=== PATIENT | female | born 1945 | race Caucasian/White ===

== ENCOUNTER → 2017-09-20 13:45 | Outpatient (CLI) | payer MEDICARE, OTHER, SELFPAY ==
[2017-09-20 15:41] LABS: Digoxin 1.1 ng/mL (0.8-2.0)
[2017-09-20 15:53] LABS: Free T4, Direct Thyroxine 1.58 ng/dL (0.78-2.19)
[2017-09-20 16:07] LABS: Thyroid Stimulating Hormone 0.45 uIU/mL (0.47-4.68)
== END ==
PROVIDERS: PCP Internal Medicine; Visit Provider Internal Medicine Cardiovascular Disease
DX: I48.0 Paroxysmal atrial fibrillation (principal); I47.1 Supraventricular tachycardia
CPT/HCPCS: 36415; 80162; 84439; 84443

== ENCOUNTER → 2017-11-18 16:36 | Outpatient (CLI) | payer MEDICARE, OTHER, SELFPAY ==
--- NOTE | 2017-11-18 16:40 | DI.RAD.S_ITS ---
PROCEDURE: XR CHEST 2V INDICATIONS: ACUTE BRONCHITIS TECHNIQUE: 2 views of the chest were acquired. COMPARISON: [facility], , CHEST 1 VIEW, 06/13/2017, 19:14. FINDINGS: Surgical changes and devices: There is a cardiac pacemaker. Lungs and pleura: No pleural effusions or pneumothorax. Lungs are clear. Mediastinum: Mediastinal contours are normal. Heart size is normal. Bones and chest wall: No suspicious bony abnormalities. Soft tissues appear unremarkable. IMPRESSION: No acute cardiopulmonary disease. Dictated by: Zuly Adkins M.D. on 11/18/2017 at 17:32 Approved by: Zuly Adkins M.D. on 11/18/2017 at 17:32
== END ==
PROVIDERS: PCP Internal Medicine; Visit Provider Student in an Organized Health Care Education/Training Program
DX: J20.9 Acute bronchitis, unspecified (principal)
CPT/HCPCS: 71046

== ENCOUNTER 2018-02-22 14:34 | Inpatient (IN) | payer MEDICARE, OTHER, SELFPAY ==
[2018-02-08 14:51] VITALS: BMI 21.6
[2018-02-21] VITALS (14 sets, daily range): BP systolic 112–172; BP diastolic 49–68; PULSE 59–70; RESP 10–20; TEMP 35.8–36.9; O2SAT 96–100; BMI 21.6
--- NOTE | 2018-02-21 | PATH_ITS ---
[facility] Accession Number: [id number] . 01 Material submitted: . UTERUS WITH BILATERAL TUBES AND OVARIES . 02 Diagnosis: Uterus with Bilateral Ovaries and Fallopian Tubes: Atrophic endometrium, negative for atypia. Paratubal cyst, left fallopian tube. Right fallopian tube unremarkable. Both ovaries unremarkable. MRV/02/23/2018 . 02 Electronically signed: . Jhonatan Sarmiento MD, Pathologist NPI- [id number] . 01 Gross description: . Received in formalin, labeled uterus with bilateral tubes and ovaries, is a uterus (66 grams, 3.2 cm AP, 7.5 cm SI, 4.3 cm ML) with attached ovaries (right - 2.8 x 1.5 x 1.3 cm; left - 2.3 x 0.8 x 0.7 cm) and fimbriated fallopian tubes (right: length - 4.2 cm, diameter - 0.3 cm; left: length - 5.5 cm, diameter - 0.3 cm). The cervix (1.2 cm AP, 3.2 cm ML) has a vaginal cuff (up to 1.3 cm in depth), transverse os, and patent endocervical canal. The endometrium (average thickness - 0.1 cm) is oakes-pink smooth and flat. The myometrium (thickness - 1.5 cm) is oakes and unremarkable. The serosa is pale oakes smooth and shiny. The ovaries have oakes-yellow dull smooth flat serosa and oakes-yellow solid firm parenchyma with corpus luteum identified. The left fallopian tube contains multiple paratubal cysts (0.1 cm-0.3 cm) containing clear colorless fluid and ramirez-white gelatinous material. The fallopian tubes have oakes smooth and shiny serosa and oakes unremarkable lumens. Section code: (A1) anterior cervix; (A2) posterior cervix; (A3, A4) anterior endomyometrium; (A5, A6) posterior endomyometrium; (A7) right ovary, clearance representative serial sections; (A8) left ovary, clearance representative serial sections; (A9) right fallopian tube, clearance representative serial sections; (A10) right fimbria, bivalved, entirely submitted; (A11) left fallopian tube, clearance representative serial sections; (A12) left fimbria, bivalved, entirely submitted. ([id number]) /[facility] . 02 Pathologist provided ICD-10: N81.4 . 02 CPT . 053134 Performed at: 01 [facility] [address] [id number] MD Donnie Lilly MD Phone: [phone] Performed at: 02 [facility] [address] [place], [place] [id number] MD Jose Trevino MD Phone: [phone]
--- NOTE | 2018-02-21 07:42 | PM.PREOP ---
Pre-operative Note Interval Note Pre-op Check: Yes History & Physical Reviewed by Physician Changes: No
[2018-02-21] MEDS: SCOPOLAMINE 1 PATCH TOP (07:50)
[2018-02-21] MEDS: APREPITANT 40 MG CAPSULE PO (07:52)
[2018-02-21] MEDS: LACTATED RINGERS 1,000 ML 100 ML IV ×4 (07:54→22:11)
[2018-02-21] MEDS: CEFAZOLIN 2 GM/100 ML FROZ.PIGGY IV (08:15)
--- NOTE | 2018-02-21 08:52 | SUR.OPER ---
Lithotomy on padded OR bed. [place] Pad Positioner under torso. Head on pillow, arms padded and tucked at sides. Legs secured in padded yellow fins stirrups.
[2018-02-21] MEDS: ACETAMINOPHEN IV 1,000 MG/100 ML VIAL 400 MG IV (09:52)
[2018-02-21] MEDS: BUPIVACAINE 0.25% W/ EPI VIAL 50 ML INJ (10:39)
[2018-02-21] MEDS: ONDANSETRON 4 MG/2 ML INJ IV ×2 (12:27→22:25)
[2018-02-21] MEDS: INSULIN ASPART 100 UNIT/ML INSULN PEN SUBCUT ×2 (13:56→16:34)
[2018-02-21] MEDS: LISINOPRIL 20 MG TABLET 40 MG PO (13:58)
[2018-02-21] MEDS: TRAMADOL 50 MG TABLET 100 MG PO ×3 (14:37→22:25)
--- NOTE | 2018-02-21 16:02 | PC.NURSE ---
Addendum entered by Veda Mars R.N. 02/21/18 22:44: Med at 2220 w/tramadol and zofran. IV continues as per orders. Stable post op course. Call light w/in reach, bed alarm on for pt safety. Continue w/plan of care. Original Note: Addendum entered by Veda Mars R.N. 02/21/18 18:29: Med w/tramadol 50mg at 1650 w/ good relief. Stable post op course. Original Note: Pt awake, multiple family in room. States discomfort is minimal at this time. four op sites on abdomen CDI. IV LR infusing into the RFA @ 100cc/hr via pump w/o incidence. Hill cath patent clear yellow urine. Call light w/in reach.
[2018-02-21] MEDS: METOCLOPRAMIDE 10 MG/2 ML INJ IV (16:21)
[2018-02-21] MEDS: DOCUSATE 250 MG CAPSULE PO (20:28)
[2018-02-22] VITALS (14 sets, daily range): BP systolic 111–150; BP diastolic 53–69; PULSE 60–88; RESP 14–20; TEMP 36.6–37.1; O2SAT 95–99
--- NOTE | 2018-02-22 | DI.RAD.S_ITS ---
PROCEDURE: XR CHEST 1V INDICATIONS: chest pain, sob. Patient had a laparoscopic hysterectomy performed earlier today on 02/22/18. TECHNIQUE: One view of the chest was acquired. COMPARISON: [facility], , XR CHEST 2V, 11/18/2017, 16:17. FINDINGS: Surgical changes and devices: Left-sided cardiac pacer/defibrillator apparatus is again evident. Lungs and pleura: Aeration of the lungs is within normal limits. No focal consolidation, effusion, or pneumothorax is evident. Mediastinum: Mediastinal contours appear normal. Heart size is normal. Bones and chest wall: No suspicious bony lesions. Overlying soft tissues appear unremarkable. Small amount of pneumoperitoneum is identified underlying the diaphragms. IMPRESSION: 1. No acute cardia pulmonary process is evident. 2. Pneumoperitoneum is not unexpected given the patient's earlier laparoscopic surgery. Note: Findings were discussed with Dr. Whitley at 1623 hours (PST) on 02/22/18. Dictated by: Alvarez Chavira M.D. on 02/22/2018 at 15:18 Approved by: Alvarez Chavira M.D. on 02/22/2018 at 15:25
--- NOTE | 2018-02-22 00:50 | PC.NURSE ---
Addendum entered by Veda Mars R.N. 02/22/18 06:13: Hill cath discontinued w/450cc clear yellow urine. IV changed to HL Resting quietly at this time. Continue as per plan of care. Original Note: Pt resting quietly at this time. IV LR infusing as per orders w/o incidence. Four surgical spot intact. Hill cath patent clear yellow urine. Call light w/in reach, bed alarm on for pt safety.
[2018-02-22] MEDS: ONDANSETRON 4 MG/2 ML INJ IV ×2 (07:06→13:20)
[2018-02-22 07:30] LABS: Add Manual Diff / Slide Review NO; Basophils Percent Auto 0.2 % (0-2); Eosinophils Percent Auto 1.6 % (2-4); Hematocrit 36.5 % (36-46); Hemoglobin 12.7 g/dL (12.0-16.0); Lymphocytes Percent Auto 13.6 % (25-40); Mean Corpuscular HGB Conc 34.9 % (30-36); Mean Corpuscular Hemoglobin 29.3 PG (26-34); Mean Corpuscular Volume 84.2 fL (80-100); Monocytes Percent Auto 7.2 % (3-14); Neutrophils Absolute Auto 12200 /uL (3000-5900); Neutrophils Percent Auto 77.4 % (50-75); Platelet Count 265 X10^3/uL (150-400); Red Blood Cell Count 4.34 X10^6/uL (4.0-5.2); Red Cell Distribution Width 12.4 % (11.6-14.8); White Blood Cell Count 15.8 X10^3/uL (4.5-11.0)
[2018-02-22] MEDS: METOCLOPRAMIDE 10 MG/2 ML INJ IV ×2 (07:53→18:59)
[2018-02-22] MEDS: CYCLOBENZAPRINE 5 MG TABLET PO (07:53)
--- NOTE | 2018-02-22 08:27 | PM.PN.1 ---
Subjective Date Patient Seen: 02/22/18 Time Patient Seen: 08:27 Interval history: Patient is postoperative day 1. Laparoscopic-assisted vaginal hysterectomy with anterior-posterior repair. Patient states she does not feel well. She has discomfort between her shoulder blades but is improved now that she has switched positions. She states she does not do well with pain medicine and feels that the medication she took is making her feel nauseated. She does not have significant pain at this time. Exam Vital Signs (past 8 hours): - 02/22/18 01:39 02/22/18 06:10 Temperature 98.0 F 98.5 F Pulse Rate 60 69 Respiratory Rate 19 20 Blood Pressure 131/60 130/60 Pulse Oximetry 96 95 Oxygen Delivery Method Room Air Oxygen Flow Rate 3 Narrative Exam Narrative: Patient's abdomen is soft with minimal distention. Her incisions are clean, dry, intact. Her vaginal packing was removed. There is no active bleeding. Her extremities are without edema and nontender. Objective Labs Result Diagrams: 02/22/18 06:35 Labs: Laboratory Results - last 24 hr 02/22/18 06:35 WBC 15.8 H RBC 4.34 Hgb 12.7 Hct 36.5 MCV 84.2 MCH 29.3 MCHC 34.9 RDW 12.4 Plt Count 265 Neut % (Auto) 77.4 H Lymph % (Auto) 13.6 L [place] % (Auto) 7.2 Eos % (Auto) 1.6 L Baso % (Auto) 0.2 Neut # (Auto) 81239 H Assessment & Plan (1) Pelvic floor relaxation: Problem details: Status post laparoscopic-assisted vaginal hysterectomy with anterior-posterior repair Current visit: No Status: None Plan: Assessment/Plan Narrative: Postoperative day 1 with patient complaining of not feeling well but may be due to the pain medicine. The patient's Hill and vaginal packing removed and will make sure she can urinate well. The will make sure the patient is feeling better for possible discharge later today. Quality VTE Deep Vein Thrombosis/Pulmonary Embolism Present on Admission: No
[2018-02-22] MEDS: ACETAMINOPHEN 325 MG TABLET 650 MG PO (08:38)
[2018-02-22] MEDS: LISINOPRIL 20 MG TABLET 40 MG PO (11:03)
[2018-02-22] MEDS: dilTIAZem CD 120 MG CAP PO (11:03)
[2018-02-22] MEDS: LEVOTHYROXINE 100 MCG TABLET PO (11:04)
[2018-02-22] MEDS: DOCUSATE 250 MG CAPSULE PO ×2 (11:04→20:55)
--- NOTE | 2018-02-22 12:01 | RT ---
ekg done for chest pain at 1118, results given to Nurse Jhoana Rincon.
[2018-02-22 13:01] LABS: Add Manual Diff / Slide Review NO; Basophils Percent Auto 0.1 % (0-2); Eosinophils Percent Auto 0.2 % (2-4); Hematocrit 36.3 % (36-46); Hemoglobin 12.9 g/dL (12.0-16.0); Mean Corpuscular HGB Conc 35.6 % (30-36); Mean Corpuscular Hemoglobin 29.6 PG (26-34); Mean Corpuscular Volume 83.1 fL (80-100); Neutrophils Absolute Auto 17000 /uL (3000-5900); Neutrophils Percent Auto 85.7 % (50-75); Platelet Count 285 X10^3/uL (150-400); Red Blood Cell Count 4.37 X10^6/uL (4.0-5.2); Red Cell Distribution Width 12.5 % (11.6-14.8); White Blood Cell Count 19.8 X10^3/uL (4.5-11.0)
[2018-02-22 13:16] LABS: Alanine Aminotransferase 29 IU/L (9-52); Albumin 3.3 g/dL (3.5-5.0); Albumin Globulin Ratio 1.4 (1.0-2.8); Alkaline Phosphatase 69 U/L (38-126); Aspartate Aminotransferase 21 IU/L (14-36); BUN Creatinine Ratio 12.5 (6-22); Bilirubin Total 0.8 mg/dL (0.2-1.3); Blood Urea Nitrogen 5 mg/dL (7-17); Calcium 7.5 mg/dL (8.4-10.2); Carbon Dioxide 27 mmol/L (22-32); Chloride 80 mmol/L (98-107); Creatine Kinase 33 U/L (30-135); Estimated Glomerular Filt Rate > 60.0 mL/min (>60); Globulin 2.4 g/dL (1.7-4.1); Glucose 171 mg/dL (80-110); HEMOLYSIS < 15 (0-50); Magnesium 1.3 mg/dL (1.6-2.3); Potassium 3.4 mmol/L (3.4-5.1); Total Protein 5.7 g/dL (6.3-8.2)
[2018-02-22 13:30] LABS: Troponin I < 0.012 ng/mL (0.01-0.034)
[2018-02-22 13:32] LABS: Sodium 115 mmol/L (137-145)
[2018-02-22] MEDS: SODIUM CHLORIDE 0.9% 1,000 ML 150 ML IV ×2 (14:20→20:51)
--- NOTE | 2018-02-22 14:36 | CM.DANOTE ---
DCP/Assessment: Reviewed chart. Patient is a 72yr old female admitted [facility] for vaginal hysterectomy performed on 02-21-18. PCP is Dr. Sheldon. Primary payor is 1)Medicare 2)[employer] [place]. Patient changed to inpatient status today 02-22-18 due to chest pain and low sodium level. Cardiac w/u in progress. Met with patient and family at bedside. Patient sleep at time of visit. Daughter/Sil reports patient I at baseline. At this time there are no anticipated d/c planning needs. Patient resides with family in [place] and has family support. CM team to continue to follow if needs were to arise. P: Home when medically stable. LILIANA Hewitt Discharge Planning/Care Management CM Discharge Assessment Start: 02/22/18 14:31 Freq: Status: Active Protocol: Document 02/22/18 14:31 KJS (Rec: 02/22/18 14:36 KJS [id number]) Discharge Planning Assessment Assigned [employer]er LILIANA Hewitt Contact Information Joe Alford (spouse) [phone] Advance Directives? Yes History Provided By Patient Family Member Significant Other Has Patient been admitted in last 30 No days? Prior Living Arrangements House Household Members spouse children Type of transporation used prior to Drives own vehicle admit Independent with ADL's Yes Is patient alert and oriented? Yes Caregiver for Another No Barriers to Discharge No Discharge Plan Home Transportation Arrangement Family to provide transportation home. Referrals Initiated None needed Whiteboard Updated in Patient Room with Yes name and ext. # of [employer] Review Status In Process Please Provide Date Initial DC 02/22/18 Assessment Was Performed Next Review Type Continued Stay Review Pre-Anesthesia Assessment Start: 02/08/18 08:36 Freq: Status: Complete Protocol: Document 02/08/18 14:51 CAB (Rec: 02/08/18 15:32 CAB [id number]) Pre-Anesthesia Assessment Patient Information Reviewed Via Chart Review Primary Care Provider Jaspal Sheldon Seen Specialist in Last 12 Months Yes Specialist Seen Forensic Locksmith Comment PCP note 11/18/17 to med records to be scanned to chart Primary Language Pakistani Inside Upholsterer Required No Height 162.56 cm Weight 57.153 kg Body Mass Index (BMI) 21.6 Anesthesia Review Requested No Body Shop Supervisor No Smoking Status Never smoker Does patient have KIDD/SOB Yes Hx SOB Yes Hx Pacemaker/ICD Yes Pacemaker Rep Required? No: Pacer form to [facility] recs and surgery folder Genitourinary Symptoms Burning Dribbling Bladder Pattern Frequency Urinary Catheter Present No Hx Urinary Self Catheterization No Diabetes Yes Patient No Lactating No Comment Caring for her
--- NOTE | 2018-02-22 15:29 | PC.NURSE ---
: PATIENT HADN'T VOIDED SINCE MARX DC'D THIS AM. BLADDER SCANNED W/ 801 CC'S NOTED IN BLADDER. 1P ASSIST TO TRANSF TO COMMODE W/ WALKER. PATIENT SLEEPY. VOIDED LIGHT PINK URINE ONLY 50CC'S. ASSISTED BACK TO BED. PRIMARY NURSE MARELY Davis NOTIFIED. MARX PLACED, SHE WILL SPEAK W/ DR. SANTORO. RETURN OF APPROX 500-600 CC'S URINE. IV: IV RED AND SORE. DC'D INTACT. NEW IV STARTED RADIAL UPPER WRIST/LOWER FOREARM. FLUSHES EASILY. IVF NS STARTED PER NEW ORDERS DIRECTED BY MARELY Davis
--- NOTE | 2018-02-22 15:30 | PC.NURSE ---
Post-op: Not feeling well today. Weak, hard to stay awake, nausea. Given reglan and flexaril this am and pt thought they helped a little but then nausea returned. Reporting c/p 2, mid sternal. EKG obtained. See new orders. Did get a ntg sl and c/p completely resolved. is on tele. Pt tolerated ngt w/sl decreased in bp, and dizziness but otherwise no problems. Unable to void and myrick was replaced. Dtr noticed pt had lip swelling and this was thought to be caused by the scope patch and scope patch was removed. Labs completed and NA 115 and critical value was called to MD, see new orders for this. IVF were hung and have been running. Dr. Raya was called x3 today for nausea, c/p, and inability to void. Dr. Foley x2, c/p, and lab values. this afternoon pt reports she is feeling better, is c/p free and nausea has resolved. Cont w/poc.
--- NOTE | 2018-02-22 15:35 | PM.PN.1 ---
Subjective Date Patient Seen: 02/22/18 Time Patient Seen: 15:35 Interval history: This is a consult note. I have consulted by Dr. Raya associate for patient's chest pain. 72-year-old female with past medical history atrial fibrillation with pacemaker placement for bradycardia episodes, B12 deficiency, diabetes mellitus, carotid artery stenosis, history of chest pain, iron deficiency anemia, Crohn's disease, hypertension, hypothyroidism, bronchitis was admitted to the hospital for laparoscopic-assisted vaginal hysterectomy, which she underwent today. The procedure was unsuccessful, however patient did complain of discomfort between her shoulder blades that went away when she switched positioning. Nevertheless, when patient went up to floors and was recovering, patient started complaining of pressure-like chest pain in the middle of her chest. When I evaluated the patient, she told me that pain was pressure-like sensation, 6/10 severity, nonradiating, substernal, not alleviated or exacerbated by any factors. Patient denied any dizziness or lightheadedness at that time, denied any loss of consciousness, denied any shortness of breath. Patient denied any nausea or vomiting, diarrhea or constipation, abdominal pain. Patient was evaluated. Her vital signs were completely stable. She was saturating well on room air, 96%. EKG was performed which showed questionable T-wave inversions in inferior leads as well as possible T-wave abnormalities in lateral leads. Patient was given sublingual nitroglycerin which improved her pain significantly. Troponins were drawn at that time which came back negative. Nevertheless, the rest of the lab work came back with WBC of 19.8, hemoglobin 12.9 hematocrit 36, platelets 285. Sodium came back at 1:15 a.m., potassium 3.4, chloride 80, bicarb 27, BUN 5, creatinine 0.4, and blood glucose of 171. Patient was started on 0.9 NSS at 150 cc/hour. BMP, troponins, and EKG will be repeated at 1900. PMH: As above SH: Denies any smoking, alchol, or drug use All: PCN FH: Father of [place] in his 60s Mother had Rheumatic heart Dz Exam Vital Signs (past 8 hours): - 02/22/18 08:00 02/22/18 14:22 Temperature 97.8 F 98.0 F Pulse Rate 61 83 Respiratory Rate 19 18 Blood Pressure 143/58 H 146/60 H Pulse Oximetry 97 98 Oxygen Delivery Method Room Air Oxygen Flow Rate 3 Narrative Exam Narrative: General: No acute distress, A/O x3 HEENT: PERRLA bilaterally Neck: Supple, no LAD, no JVD CV: Regular rate rhythm, no murmurs or gallops Respiratory: Positive breath sounds, clear to auscultation bilaterally. No crackles or rhonchi GI: Laparoscopic incisions present throughout abdomen, Clean Musculoskeletal: Moves all extremities Skin: No pallor, lesions or bruising Neuro: No focal deficits Psych: Mood is appropriate, able to make all the decision Objective Labs Result Diagrams: 02/22/18 12:40 02/22/18 12:40 Labs: Laboratory Results - last 24 hr 02/22/18 02/22/18 02/22/18 06:35 12:40 12:40 WBC 15.8 H 19.8 H RBC 4.34 4.37 Hgb 12.7 12.9 Hct 36.5 36.3 MCV 84.2 83.1 MCH 29.3 29.6 MCHC 34.9 35.6 RDW 12.4 12.5 Plt Count 265 285 Neut % (Auto) 77.4 H 85.7 H Lymph % (Auto) 13.6 L 7.0 L [place] % (Auto) 7.2 7.0 Eos % (Auto) 1.6 L 0.2 L Baso % (Auto) 0.2 0.1 Neut # (Auto) 47492 H 29105 H Sodium 115 L* Potassium 3.4 Chloride 80 L Carbon Dioxide 27 BUN 5 L Creatinine 0.40 L Estimated GFR > 60.0 BUN/Creatinine Ratio 12.5 Glucose 171 H Calcium 7.5 L Magnesium 1.3 L Total Bilirubin 0.8 AST 21 ALT 29 Alkaline Phosphatase 69 Total Creatine Kinase 33 CK-MB (CK-2) TNP CK-MB (CK-2) Rel Index TNP Troponin I < 0.012 Total Protein 5.7 L Albumin 3.3 L Globulin 2.4 Albumin/Globulin Ratio 1.4 Assessment & Plan Plan: Assessment/Plan Narrative: 1. Chest pain -possibly due to unstable versus stable angina -EKG was questionable for T-wave inversions in the inferior leads as well as T-wave abnormalities in lateral leads -troponins were negative x1 -Wells criteria for PE is 0, low risk -continue to monitor troponin and EKG q.6 hours x3 -will start patient on aspirin 81 mg daily, but will be cautious since patient has history of GI bleed -nitroglycerin as needed for pain 2. Hyponatremia -possibly from dehydration -sodium 115, chloride 80 -will start patient on D5 NS at 150 cc an hour -will repeat BMP of 1900 and adjust fluids accordingly 3. AFib -status post ablation and pacemaker placement -patient is on digoxin, and diltiazem -continue medication 4. Diabetes mellitus type 2 -blood glucose is stable -continue insulin sliding scale at this time and may resume home Lantus/lispro on discharge or blood glucose started to increase 5. Hypothyroidism -continue levothyroxine 6. Hypertension -continue diltiazem, hydrochlorothiazide, and lisinopril 7. History of CAD, although patient denies any stenting in the past -continue simvastatin, aspirin, lisinopril 60 min was spent evaluating and providing care for this patient Quality VTE Deep Vein Thrombosis/Pulmonary Embolism Present on Admission: No
--- NOTE | 2018-02-22 15:53 | P.PN_ITS ---
Subjective Date Patient Seen: 02/22/18 Time Patient Seen: 15:35 Interval history: This is a consult note. I have consulted by Dr. Raya associate for patient's chest pain. 72-year-old female with past medical history atrial fibrillation with pacemaker placement for bradycardia episodes, B12 deficiency, diabetes mellitus, carotid artery stenosis, history of chest pain, iron deficiency anemia, Crohn's disease , hypertension, hypothyroidism, bronchitis was admitted to the hospital for laparoscopic-assisted vaginal hysterectomy, which she underwent today. The procedure was unsuccessful, however patient did complain of discomfort between her shoulder blades that went away when she switched positioning. Nevertheless , when patient went up to floors and was recovering, patient started complaining of pressure-like chest pain in the middle of her chest. When I evaluated the patient, she told me that pain was pressure-like sensation, 6/10 severity, nonradiating, substernal, not alleviated or exacerbated by any factors. Patient denied any dizziness or lightheadedness at that time, denied any loss of consciousness, denied any shortness of breath. Patient denied any nausea or vomiting, diarrhea or constipation, abdominal pain. Patient was evaluated. Her vital signs were completely stable. She was saturating well on room air, 96%. EKG was performed which showed questionable T -wave inversions in inferior leads as well as possible T-wave abnormalities in lateral leads. Patient was given sublingual nitroglycerin which improved her pain significantly. Troponins were drawn at that time which came back negative. Nevertheless, the rest of the lab work came back with WBC of 19.8, hemoglobin 12.9 hematocrit 36, platelets 285. Sodium came back at 1:15 a.m., potassium 3.4, chloride 80, bicarb 27, BUN 5, creatinine 0.4, and blood glucose of 171. Patient was started on 0.9 NSS at 150 cc/hour. BMP, troponins, and EKG will be repeated at 1900. PMH: As above SH: Denies any smoking, alchol, or drug use All: PCN FH: Father of [place] in his 60s Mother had Rheumatic heart Dz Exam Vital Signs (past 8 hours): - 02/22/18 08:00 02/22/18 14:22 Temperature 97.8 F 98.0 F Pulse Rate 61 83 Respiratory Rate 19 18 Blood Pressure 143/58 H 146/60 H Pulse Oximetry 97 98 Oxygen Delivery Method Room Air Oxygen Flow Rate 3 Narrative Exam Narrative: General: No acute distress, A/O x3 HEENT: PERRLA bilaterally Neck: Supple, no LAD, no JVD CV: Regular rate rhythm, no murmurs or gallops Respiratory: Positive breath sounds, clear to auscultation bilaterally. No crackles or rhonchi GI: Laparoscopic incisions present throughout abdomen, Clean Musculoskeletal: Moves all extremities Skin: No pallor, lesions or bruising Neuro: No focal deficits Psych: Mood is appropriate, able to make all the decision Objective Labs Result Diagrams: 02/22/18 12:40 02/22/18 12:40 Labs: Laboratory Results - last 24 hr 02/22/18 02/22/18 02/22/18 06:35 12:40 12:40 WBC 15.8 H 19.8 H RBC 4.34 4.37 Hgb 12.7 12.9 Hct 36.5 36.3 MCV 84.2 83.1 MCH 29.3 29.6 MCHC 34.9 35.6 RDW 12.4 12.5 Plt Count 265 285 Neut % (Auto) 77.4 H 85.7 H Lymph % (Auto) 13.6 L 7.0 L [place] % (Auto) 7.2 7.0 Eos % (Auto) 1.6 L 0.2 L Baso % (Auto) 0.2 0.1 Neut # (Auto) 17806 H 94980 H Sodium 115 L* Potassium 3.4 Chloride 80 L Carbon Dioxide 27 BUN 5 L Creatinine 0.40 L Estimated GFR > 60.0 BUN/Creatinine Ratio 12.5 Glucose 171 H Calcium 7.5 L Magnesium 1.3 L Total Bilirubin 0.8 AST 21 ALT 29 Alkaline Phosphatase 69 Total Creatine Kinase 33 CK-MB (CK-2) TNP CK-MB (CK-2) Rel Index TNP Troponin I < 0.012 Total Protein 5.7 L Albumin 3.3 L Globulin 2.4 Albumin/Globulin Ratio 1.4 Assessment & Plan Plan: Assessment/Plan Narrative: 1. Chest pain -possibly due to unstable versus stable angina -EKG was questionable for T-wave inversions in the inferior leads as well as T- wave abnormalities in lateral leads -troponins were negative x1 -Wells criteria for PE is 0, low risk -continue to monitor troponin and EKG q.6 hours x3 -will start patient on aspirin 81 mg daily, but will be cautious since patient has history of GI bleed -nitroglycerin as needed for pain 2. Hyponatremia -possibly from dehydration -sodium 115, chloride 80 -will start patient on D5 NS at 150 cc an hour -will repeat BMP of 1900 and adjust fluids accordingly 3. AFib -status post ablation and pacemaker placement -patient is on digoxin, and diltiazem -continue medication 4. Diabetes mellitus type 2 -blood glucose is stable -continue insulin sliding scale at this time and may resume home Lantus/lispro on discharge or blood glucose started to increase 5. Hypothyroidism -continue levothyroxine 6. Hypertension -continue diltiazem, hydrochlorothiazide, and lisinopril 7. History of CAD, although patient denies any stenting in the past -continue simvastatin, aspirin, lisinopril 60 min was spent evaluating and providing care for this patient Quality VTE Deep Vein Thrombosis/Pulmonary Embolism Present on Admission: No
--- NOTE | 2018-02-22 17:02 | PM.PN.1 ---
Subjective Date Patient Seen: 02/22/18 Time Patient Seen: 17:04 Interval history: Postoperative day # 1 Laparoscopic-assisted vaginal hysterectomy with anterior and posterior repair. Patient continued to not feel well after her evaluation earlier this morning. Patient's daughter requested evaluation by hospitalist which was performed. Patient is now feeling much better. It is probable the patient just had a reaction to the scopolamine patch which was removed and to the tramadol. Patient is getting IV fluids, her Hill catheter replaced, and follow-up monitoring to rule out cardiac event. Exam Vital Signs (past 8 hours): - 02/22/18 14:22 Temperature 98.0 F Pulse Rate 83 Respiratory Rate 18 Blood Pressure 146/60 H Pulse Oximetry 98 Oxygen Delivery Method Room Air Oxygen Flow Rate 3 Narrative Exam Narrative: Patient's abdomen is soft, nontender. Dressings are dry. Mild vaginal bleeding. Extremities without edema and nontender Objective Labs Result Diagrams: 02/22/18 12:40 02/22/18 12:40 Labs: Laboratory Results - last 24 hr 02/22/18 02/22/18 02/22/18 06:35 12:40 12:40 WBC 15.8 H 19.8 H RBC 4.34 4.37 Hgb 12.7 12.9 Hct 36.5 36.3 MCV 84.2 83.1 MCH 29.3 29.6 MCHC 34.9 35.6 RDW 12.4 12.5 Plt Count 265 285 Neut % (Auto) 77.4 H 85.7 H Lymph % (Auto) 13.[address] [place] % (Auto) 7.2 7.0 Eos % (Auto) 1.6 L 0.2 L Baso % (Auto) 0.2 0.1 Neut # (Auto) 42455 H 25197 H Sodium 115 L* Potassium 3.4 Chloride 80 L Carbon Dioxide 27 BUN 5 L Creatinine 0.40 L Estimated GFR > 60.0 BUN/Creatinine Ratio 12.5 Glucose 171 H Calcium 7.5 L Magnesium 1.3 L Total Bilirubin 0.8 AST 21 ALT 29 Alkaline Phosphatase 69 Total Creatine Kinase 33 CK-MB (CK-2) TNP CK-MB (CK-2) Rel Index TNP Troponin I < 0.012 Total Protein 5.7 L Albumin 3.3 L Globulin 2.4 Albumin/Globulin Ratio 1.4 Assessment & Plan (1) Pelvic floor relaxation: Problem details: Status post laparoscopic-assisted vaginal hysterectomy with anterior-posterior repair Current visit: No Status: None (2) TYPE 1 DIABETES MELLITUS WITH HYPOGLYCEMIA WITHOUT COMA: Current visit: No Status: Acute (3) Atypical chest pain: Current visit: No Status: Acute Plan: Assessment/Plan Narrative: 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 Assuming that she continues to improve and her cardiac workup is negative likely home in the morning. She will need to have confirmation of urination post Hill catheter removal. Quality VTE Deep Vein Thrombosis/Pulmonary Embolism Present on Admission: No
--- NOTE | 2018-02-22 17:11 | P.PN_ITS ---
Subjective Date Patient Seen: 02/22/18 Time Patient Seen: 17:04 Interval history: Postoperative day # 1 Laparoscopic-assisted vaginal hysterectomy with anterior and posterior repair. Patient continued to not feel well after her evaluation earlier this morning. Patient's daughter requested evaluation by hospitalist which was performed. Patient is now feeling much better. It is probable the patient just had a reaction to the scopolamine patch which was removed and to the tramadol. Patient is getting IV fluids, her Hill catheter replaced, and follow-up monitoring to rule out cardiac event. Exam Vital Signs (past 8 hours): - 02/22/18 14:22 Temperature 98.0 F Pulse Rate 83 Respiratory Rate 18 Blood Pressure 146/60 H Pulse Oximetry 98 Oxygen Delivery Method Room Air Oxygen Flow Rate 3 Narrative Exam Narrative: Patient's abdomen is soft, nontender. Dressings are dry. Mild vaginal bleeding. Extremities without edema and nontender Objective Labs Result Diagrams: 02/22/18 12:40 02/22/18 12:40 Labs: Laboratory Results - last 24 hr 02/22/18 02/22/18 02/22/18 06:35 12:40 12:40 WBC 15.8 H 19.8 H RBC 4.34 4.37 Hgb 12.7 12.9 Hct 36.5 36.3 MCV 84.2 83.1 MCH 29.3 29.6 MCHC 34.9 35.6 RDW 12.4 12.5 Plt Count 265 285 Neut % (Auto) 77.4 H 85.7 H Lymph % (Auto) 13.6 L 7.0 L [place] % (Auto) 7.2 7.0 Eos % (Auto) 1.6 L 0.2 L Baso % (Auto) 0.2 0.1 Neut # (Auto) 78539 H 18157 H Sodium 115 L* Potassium 3.4 Chloride 80 L Carbon Dioxide 27 BUN 5 L Creatinine 0.40 L Estimated GFR > 60.0 BUN/Creatinine Ratio 12.5 Glucose 171 H Calcium 7.5 L Magnesium 1.3 L Total Bilirubin 0.8 AST 21 ALT 29 Alkaline Phosphatase 69 Total Creatine Kinase 33 CK-MB (CK-2) TNP CK-MB (CK-2) Rel Index TNP Troponin I < 0.012 Total Protein 5.7 L Albumin 3.3 L Globulin 2.4 Albumin/Globulin Ratio 1.4 Assessment & Plan (1) Pelvic floor relaxation: Problem details: Status post laparoscopic-assisted vaginal hysterectomy with anterior-posterior repair Current visit: No Status: None (2) TYPE 1 DIABETES MELLITUS WITH HYPOGLYCEMIA WITHOUT COMA: Current visit: No Status: Acute (3) Atypical chest pain: Current visit: No Status: Acute Plan: Assessment/Plan Narrative: 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 Assuming that she continues to improve and her cardiac workup is negative likely home in the morning. She will need to have confirmation of urination post Hill catheter removal. Quality VTE Deep Vein Thrombosis/Pulmonary Embolism Present on Admission: No
[2018-02-22] MEDS: DIGOXIN 0.125 MG TABLET PO (17:43)
[2018-02-22] MEDS: ASPIRIN EC 81 MG TABLET PO (17:44)
[2018-02-22] MEDS: INSULIN ASPART 100 UNIT/ML INSULN PEN SUBCUT (17:45)
[2018-02-22] MEDS: NITROGLYCERIN 0.4 MG SL TAB SL ×3 (18:24→18:45)
[2018-02-22] MEDS: MORPHINE 2 MG/ML INJ IV (19:03)
[2018-02-22 19:29] LABS: BUN Creatinine Ratio 12.5 (6-22); Blood Urea Nitrogen 5 mg/dL (7-17); Calcium 7.4 mg/dL (8.4-10.2); Carbon Dioxide 25 mmol/L (22-32); Chloride 84 mmol/L (98-107); Estimated Glomerular Filt Rate > 60.0 mL/min (>60); Glucose 180 mg/dL (80-110); HEMOLYSIS < 15 (0-50); Potassium 3.5 mmol/L (3.4-5.1)
[2018-02-22 19:42] LABS: Troponin I < 0.012 ng/mL (0.01-0.034)
[2018-02-22 19:43] LABS: Sodium 115 mmol/L (137-145)
[2018-02-22] MEDS: MAGNESIUM SULFATE 2 GM/50 ML PIGGYBACK IV (20:40)
[2018-02-22] MEDS: POTASSIUM CHLORIDE 20 MEQ/15 ML UDC 40 MEQ PO (20:48)
[2018-02-22] MEDS: SIMVASTATIN 10 MG TABLET PO (20:57)
--- NOTE | 2018-02-22 21:16 | PM.EVENT ---
Date Patient Seen: 02/22/18 Time Patient Seen: 20:00 Received a call from the patient's nurse. Nurse is reporting lab results from 1900 our lab draw, specifically sodium. NA 115 Additional information provided by the nurse. Having chest pain earlier in the day, currently chest pain-free. There is some difficulty describing patient's mentation, however noted not to be patient's baseline. Electrolytes have not been repleted. Vital signs are stable. IV fluids NS at 150 ml/hr since 3 pm, respectively. Urine output 1150 ml since 3 pm. Patient is nauseated. Has not been having vomiting or diarrhea. Patient is seen at bedside (multiple family members also present at bedside). Patient easily awakens to verbal stimuli. Alert and oriented x3. Able to describe reason for hospital admission. Aware of her surroundings. Reports generalized weakness. Denies chest pain and palpitations. Patient's chart reviewed. Most recent and historical labs reviewed. Patient's medications reviewed Baseline sodium per historical trends in the 130-[address] patient on seizure precautions Neuro checks q.2 hours Replete potassium (K 3.5) with 40 mEq KCL PO x1 Replete magnesium (Mg 1.3) with 2 gm Mag Sulfate over 1 hr Continue NS at 150 ml/hr Discontinue HCTZ and ACEi, in the setting of hyponatremia Discontinue Ambien re: at risk for lethargy, stupor the setting of hyponatremia Serial Na draws Q2H starting at 2200 Will need to be cautious in correcting sodium, not to exceed 8 mEq in 24 hr Pending sodium level at 2200, we will consider transferring patient to the ICU and initiating 3% sodium chloride infusion; however, patient will need a PICC line placed prior to initiating the aforementioned medication. Checked on patient at 21:40, no change for prior assessment Discussed plan of care with patient's nurse and pending sodium level at 2200 hour Also asked the nurse to add additional orders to 2200: serum and urine osmolality, TSH level, and random cortisol
--- NOTE | 2018-02-22 22:08 | PC.NURSE ---
Addendum entered by Katya Ricks R.N. 02/22/18 22:53: MD SANTORO updated on pt status/new orders from hospitalist Original Note: 1600: Pt awake, drowsy and oriented. Denies pain. Denies nausea. RA 96%. Abd soft, non distended, BT/Flatus+. Dressing to lower abdomen c/d/i. No drainage on arun pad. IV infusing w/o complications. Hill draining well, urine clr/yellow. Family members at bedside. SCDs on. 1819: Notified by family member that pt was having chest pressure. Pt reported pain/pressure 4/10. RT called for EKG and lab called for draw. 1824: First Nitro given. Vitals stable. 1830: No relief after first dose. Second dose given 1836, vitals stable 1840: No relief after second dose. Third dose given 1844, vitals stable 1850: MD GALLAGHER notified of pt status, EKG and lab drawn (no results yet). Orders for IV morphine received/given. Pt reported that pain/pressure slowly resolved after morphine given. New correctional supply supervisor hospitalist RIKKI notified of critical lab value Sodium and negative cardiac/troponin. New orders received, mag quentin, po potassium, seizure precautions, additional labs. Pt vitals remain stable. Family at bedside. 0: Pt reports feeling much better family agrees that pt seems to be feeling good. Neuro checks Q2H, alert/oriented, speech clear, strength equal. 2245: Sodium 117. Pt and family updated on plan, Q2H sodium checks/also additional check of mag/potassium at 0000.
[2018-02-22 22:24] LABS: Sodium 117 mmol/L (137-145)
[2018-02-22 23:10] LABS: Cortisol Random 13.3 ug/dL
[2018-02-22 23:11] LABS: Thyroid Stimulating Hormone 2.45 uIU/mL (0.47-4.68)
[2018-02-23] VITALS: BP 133/59; PULSE 66; RESP 14; TEMP 36.5; O2SAT 97
[2018-02-23 00:29] LABS: HEMOLYSIS < 15 (0-50); Magnesium 2.3 mg/dL (1.6-2.3); Potassium 4.2 mmol/L (3.4-5.1); Sodium 122 mmol/L (137-145)
--- NOTE | 2018-02-23 00:47 | PC.NURSE ---
Addendum entered by Kaitlyn Parks R.N. 02/23/18 05:58: 0555 MD had ordered D5 to infuse at 100ml/hr, clarified with MD regarding pt's DM status. MD has ordered D5 to infuse at a decreased rate of 50ml/hr. MAR updated. IVF infusing per updated order. Pt denies pain and nausea. A/O x3. 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 A/O x3. RA sats 97% with clear lungs. Denies pain and nausea. Lap sites to lower abdomen/pubic area CDI. Labs drawn and NA has increased to 122. Seizure pads in place. IVF infusing. Family at the bedside and rooming in with pt. Bed alarm on for safety and call light within reach.
[2018-02-23] MEDS: SODIUM CHLORIDE 0.9% 1,000 ML 50 ML IV (01:21)
[2018-02-23 02:22] LABS: Sodium 126 mmol/L (137-145)
[2018-02-23] MEDS: ACETAMINOPHEN 325 MG TABLET 650 MG PO ×3 (02:36→11:28)
[2018-02-23 04:15] LABS: Sodium 127 mmol/L (137-145)
[2018-02-23] MEDS: DEXTROSE 5% WATER 1,000 ML 100 ML IV (05:49)
[2018-02-23 06:00] VITALS: BP 130/60; PULSE 66; RESP 16; TEMP 36.9; O2SAT 97
[2018-02-23 07:24] LABS: Add Manual Diff / Slide Review NO; Basophils Percent Auto 0.2 % (0-2); Eosinophils Percent Auto 1.5 % (2-4); Hemoglobin 13.1 g/dL (12.0-16.0); Lymphocytes Percent Auto 13.7 % (25-40); Mean Corpuscular HGB Conc 35.3 % (30-36); Mean Corpuscular Hemoglobin 29.6 PG (26-34); Monocytes Percent Auto 11.5 % (3-14); Neutrophils Absolute Auto 7800 /uL (3000-5900); Neutrophils Percent Auto 73.1 % (50-75); Platelet Count 245 X10^3/uL (150-400); Red Blood Cell Count 4.41 X10^6/uL (4.0-5.2); Red Cell Distribution Width 12.4 % (11.6-14.8); White Blood Cell Count 10.7 X10^3/uL (4.5-11.0)
[2018-02-23 07:30] VITALS: BP 140/58; PULSE 65; RESP 16; TEMP 36.6; O2SAT 98
--- NOTE | 2018-02-23 07:35 | PM.PNPO.1 ---
Subjective Date Patient Seen: 02/23/18 Time Patient Seen: 07:05 Interval history: Patient is day 2 status post laparoscopic assisted vaginal hysterectomy with anterior-posterior repair. Patient is feeling much better this morning. She is taking Tylenol with good relief of her pain. Her mentation is clearer. Exam Vital Signs (past 8 hours): - 02/23/18 00:00 02/23/18 06:00 Temperature 97.7 F 98.5 F Pulse Rate 66 66 Respiratory Rate 14 16 Blood Pressure 133/59 L 130/60 Pulse Oximetry 97 97 Oxygen Delivery Method Room Air Oxygen Flow Rate 0 Narrative Exam Narrative: Patient's abdomen is soft, nontender. Dressings are clean, dry, intact. Minimal vaginal bleeding. Extremities without edema and nontender Objective Labs Result Diagrams: 02/23/18 06:20 02/23/18 03:58 Labs: Laboratory Results - last 24 hr 02/22/18 02/22/18 02/22/18 12:40 12:40 18:58 WBC 19.8 H RBC 4.37 Hgb 12.9 Hct 36.3 MCV 83.1 MCH 29.6 MCHC 35.6 RDW 12.5 Plt Count 285 Neut % (Auto) 85.7 H Lymph % (Auto) 7.0 L [place] % (Auto) 7.0 Eos % (Auto) 0.2 L Baso % (Auto) 0.1 Neut # (Auto) 65774 H Sodium 115 L* 115 L* Potassium 3.4 3.5 Chloride 80 L 84 L Carbon Dioxide 27 25 BUN 5 L 5 L Creatinine 0.40 L 0.40 L Estimated GFR > 60.0 > 60.0 BUN/Creatinine Ratio 12.5 12.5 Glucose 171 H 180 H Calcium 7.5 L 7.4 L Magnesium 1.3 L Total Bilirubin 0.8 AST 21 ALT 29 Alkaline Phosphatase 69 Total Creatine Kinase 33 CK-MB (CK-2) TNP CK-MB (CK-2) Rel Index TNP Troponin I < 0.012 < 0.012 Total Protein 5.7 L Albumin 3.3 L Globulin 2.4 Albumin/Globulin Ratio 1.4 TSH Random Cortisol 02/22/18 02/22/18 02/22/18 22:07 22:07 22:07 WBC RBC Hgb Hct MCV MCH MCHC RDW Plt Count Neut % (Auto) Lymph % (Auto) [place] % (Auto) Eos % (Auto) Baso % (Auto) Neut # (Auto) Sodium 117 L* Potassium Chloride Carbon Dioxide BUN Creatinine Estimated GFR BUN/Creatinine Ratio Glucose Calcium Magnesium Total Bilirubin AST ALT Alkaline Phosphatase Total Creatine Kinase CK-MB (CK-2) CK-MB (CK-2) Rel Index Troponin I Total Protein Albumin Globulin Albumin/Globulin Ratio TSH 2.45 Random Cortisol 13.3 02/23/18 02/23/18 02/23/18 00:12 02:08 03:58 WBC RBC Hgb Hct MCV MCH MCHC RDW Plt Count Neut % (Auto) Lymph % (Auto) [place] % (Auto) Eos % (Auto) Baso % (Auto) Neut # (Auto) Sodium 122 L 126 L 127 L Potassium 4.2 Chloride Carbon Dioxide BUN Creatinine Estimated GFR BUN/Creatinine Ratio Glucose Calcium Magnesium 2.3 Total Bilirubin AST ALT Alkaline Phosphatase Total Creatine Kinase CK-MB (CK-2) CK-MB (CK-2) Rel Index Troponin I Total Protein Albumin Globulin Albumin/Globulin Ratio TSH Random Cortisol 02/23/18 06:20 WBC 10.7 RBC 4.41 Hgb 13.1 Hct 37.0 MCV 84.0 MCH 29.6 MCHC 35.3 RDW 12.4 Plt Count 245 Neut % (Auto) 73.1 Lymph % (Auto) 13.7 L [place] % (Auto) 11.5 Eos % (Auto) 1.5 L Baso % (Auto) 0.2 Neut # (Auto) 7800 H Sodium Potassium Chloride Carbon Dioxide BUN Creatinine Estimated GFR BUN/Creatinine Ratio Glucose Calcium Magnesium Total Bilirubin AST ALT Alkaline Phosphatase Total Creatine Kinase CK-MB (CK-2) CK-MB (CK-2) Rel Index Troponin I Total Protein Albumin Globulin Albumin/Globulin Ratio TSH Random Cortisol Assessment & Plan Post-op Postoperative Procedures Operation Date: 02/21/18 07:45 Actual Procedures Side Surgeon p Laparoscopic Assisted Vag Hysterectomy w/Bilat S&O Veda Witt MD s Colporrhaphy Anterior/Posterior Colporrhaphy Veda Witt MD Postoperative day: 2 Postoperative status: other (From a clinical counselor standpoint the patient is doing well) Postoperative plan: other Postoperative plan narrative: If internal medicine is agreeable can DC Hill and make sure the patient is does not have a postvoid residual and when cleared from internal medicine may be discharged Time Spent With Patient less than 15 minutes Quality VTE Deep Vein Thrombosis/Pulmonary Embolism Present on Admission: No
--- NOTE | 2018-02-23 07:40 | P.PN_ITS ---
Subjective Date Patient Seen: 02/23/18 Time Patient Seen: 07:05 Interval history: Patient is day 2 status post laparoscopic assisted vaginal hysterectomy with anterior-posterior repair. Patient is feeling much better this morning. She is taking Tylenol with good relief of her pain. Her mentation is clearer. Exam Vital Signs (past 8 hours): - 02/23/18 00:00 02/23/18 06:00 Temperature 97.7 F 98.5 F Pulse Rate 66 66 Respiratory Rate 14 16 Blood Pressure 133/59 L 130/60 Pulse Oximetry 97 97 Oxygen Delivery Method Room Air Oxygen Flow Rate 0 Narrative Exam Narrative: Patient's abdomen is soft, nontender. Dressings are clean, dry , intact. Minimal vaginal bleeding. Extremities without edema and nontender Objective Labs Result Diagrams: 02/23/18 06:20 02/23/18 03:58 Labs: Laboratory Results - last 24 hr 02/22/18 02/22/18 02/22/18 12:40 12:40 18:58 WBC 19.8 H RBC 4.37 Hgb 12.9 Hct 36.3 MCV 83.1 MCH 29.6 MCHC 35.6 RDW 12.5 Plt Count 285 Neut % (Auto) 85.7 H Lymph % (Auto) 7.0 L [place] % (Auto) 7.0 Eos % (Auto) 0.2 L Baso % (Auto) 0.1 Neut # (Auto) 65345 H Sodium 115 L* 115 L* Potassium 3.4 3.5 Chloride 80 L 84 L Carbon Dioxide 27 25 BUN 5 L 5 L Creatinine 0.40 L 0.40 L Estimated GFR > 60.0 > 60.0 BUN/Creatinine Ratio 12.5 12.5 Glucose 171 H 180 H Calcium 7.5 L 7.4 L Magnesium 1.3 L Total Bilirubin 0.8 AST 21 ALT 29 Alkaline Phosphatase 69 Total Creatine Kinase 33 CK-MB (CK-2) TNP CK-MB (CK-2) Rel Index TNP Troponin I < 0.012 < 0.012 Total Protein 5.7 L Albumin 3.3 L Globulin 2.4 Albumin/Globulin Ratio 1.4 TSH Random Cortisol 02/22/18 02/22/18 02/22/18 22:07 22:07 22:07 WBC RBC Hgb Hct MCV MCH MCHC RDW Plt Count Neut % (Auto) Lymph % (Auto) [place] % (Auto) Eos % (Auto) Baso % (Auto) Neut # (Auto) Sodium 117 L* Potassium Chloride Carbon Dioxide BUN Creatinine Estimated GFR BUN/Creatinine Ratio Glucose Calcium Magnesium Total Bilirubin AST ALT Alkaline Phosphatase Total Creatine Kinase CK-MB (CK-2) CK-MB (CK-2) Rel Index Troponin I Total Protein Albumin Globulin Albumin/Globulin Ratio TSH 2.45 Random Cortisol 13.3 02/23/18 02/23/18 02/23/18 00:12 02:08 03:58 WBC RBC Hgb Hct MCV MCH MCHC RDW Plt Count Neut % (Auto) Lymph % (Auto) [place] % (Auto) Eos % (Auto) Baso % (Auto) Neut # (Auto) Sodium 122 L 126 L 127 L Potassium 4.2 Chloride Carbon Dioxide BUN Creatinine Estimated GFR BUN/Creatinine Ratio Glucose Calcium Magnesium 2.3 Total Bilirubin AST ALT Alkaline Phosphatase Total Creatine Kinase CK-MB (CK-2) CK-MB (CK-2) Rel Index Troponin I Total Protein Albumin Globulin Albumin/Globulin Ratio TSH Random Cortisol 02/23/18 06:20 WBC 10.7 RBC 4.41 Hgb 13.1 Hct 37.0 MCV 84.0 MCH 29.6 MCHC 35.3 RDW 12.4 Plt Count 245 Neut % (Auto) 73.1 Lymph % (Auto) 13.7 L [place] % (Auto) 11.5 Eos % (Auto) 1.5 L Baso % (Auto) 0.2 Neut # (Auto) 7800 H Sodium Potassium Chloride Carbon Dioxide BUN Creatinine Estimated GFR BUN/Creatinine Ratio Glucose Calcium Magnesium Total Bilirubin AST ALT Alkaline Phosphatase Total Creatine Kinase CK-MB (CK-2) CK-MB (CK-2) Rel Index Troponin I Total Protein Albumin Globulin Albumin/Globulin Ratio TSH Random Cortisol Assessment & Plan Post-op Postoperative Procedures Operation Date: 02/21/18 07:45 Actual Procedures Side Surgeon p Laparoscopic Assisted Vag Hysterectomy w/Bilat S&O Veda Witt MD s Colporrhaphy Anterior/Posterior Colporrhaphy Veda Witt MD Postoperative day: 2 Postoperative status: other (From a obgyn hospitalist physician standpoint the patient is doing well) Postoperative plan: other Postoperative plan narrative: If internal medicine is agreeable can DC Hill and make sure the patient is does not have a postvoid residual and when cleared from internal medicine may be discharged Time Spent With Patient less than 15 minutes Quality VTE Deep Vein Thrombosis/Pulmonary Embolism Present on Admission: No
[2018-02-23 07:45] LABS: Blood Urea Nitrogen 6 mg/dL (7-17); Calcium 7.5 mg/dL (8.4-10.2); Carbon Dioxide 26 mmol/L (22-32); Chloride 96 mmol/L (98-107); Estimated Glomerular Filt Rate > 60.0 mL/min (>60); Glucose 130 mg/dL (80-110); Sodium 130 mmol/L (137-145)
[2018-02-23 07:46] LABS: HEMOLYSIS 81 (0-50)
[2018-02-23] MEDS: ASPIRIN EC 81 MG TABLET PO (09:23)
[2018-02-23] MEDS: LORATADINE 10 MG TABLET PO (09:23)
[2018-02-23] MEDS: LEVOTHYROXINE 100 MCG TABLET PO (09:23)
[2018-02-23] MEDS: dilTIAZem CD 120 MG CAP PO (09:23)
[2018-02-23] MEDS: DOCUSATE 250 MG CAPSULE PO (09:23)
[2018-02-23] MEDS: INSULIN ASPART 100 UNIT/ML INSULN PEN SUBCUT ×3 (09:24→17:17)
[2018-02-23 13:30] VITALS: BP 145/53; PULSE 69; RESP 16; TEMP 37.1; O2SAT 98
[2018-02-23 15:25] VITALS: BP 150/82; PULSE 88; RESP 16; TEMP 36.4; O2SAT 95
--- NOTE | 2018-02-23 16:06 | P.PN_ITS ---
Subjective Date Patient Seen: 02/23/18 Interval history: Patient seen and examined. She feels significantly improved. Patient noted to have a urine residual of 700 cc. No further chest pain, no shortness of breath Exam Vital Signs (past 8 hours): - 02/23/18 13:30 Temperature 98.7 F Pulse Rate 69 Respiratory Rate 16 Blood Pressure 145/53 H Pulse Oximetry 98 Oxygen Delivery Method Room Air Oxygen Flow Rate 0 Narrative Exam Narrative: Pleasant female in no acute distress Lungs: clear to auscultation CV:RRR nl Sl S2 2/6 PATTI Abd: soft/ mildly tender, dressing in place Ext: no edema Objective Labs Result Diagrams: 02/23/18 06:20 02/23/18 06:20 Labs: Laboratory Results - last 24 hr 02/22/18 02/22/18 02/22/18 18:58 22:07 22:07 WBC RBC Hgb Hct MCV MCH MCHC RDW Plt Count Neut % (Auto) Lymph % (Auto) [place] % (Auto) Eos % (Auto) Baso % (Auto) Neut # (Auto) Sodium 115 L* 117 L* Potassium 3.5 Chloride 84 L Carbon Dioxide 25 BUN 5 L Creatinine 0.40 L Estimated GFR > 60.0 BUN/Creatinine Ratio 12.5 Glucose 180 H Calcium 7.4 L Magnesium Troponin I < 0.012 TSH 2.45 Random Cortisol 02/22/18 02/23/18 02/23/18 22:07 00:12 02:08 WBC RBC Hgb Hct MCV MCH MCHC RDW Plt Count Neut % (Auto) Lymph % (Auto) [place] % (Auto) Eos % (Auto) Baso % (Auto) Neut # (Auto) Sodium 122 L 126 L Potassium 4.2 Chloride Carbon Dioxide BUN Creatinine Estimated GFR BUN/Creatinine Ratio Glucose Calcium Magnesium 2.3 Troponin I TSH Random Cortisol 13.3 02/23/18 02/23/18 02/23/18 03:58 06:20 06:20 WBC 10.7 RBC 4.41 Hgb 13.1 Hct 37.0 MCV 84.0 MCH 29.6 MCHC 35.3 RDW 12.4 Plt Count 245 Neut % (Auto) 73.1 Lymph % (Auto) 13.7 L [place] % (Auto) 11.5 Eos % (Auto) 1.5 L Baso % (Auto) 0.2 Neut # (Auto) 7800 H Sodium 127 L 130 L Potassium 4.0 Chloride 96 L Carbon Dioxide 26 BUN 6 L Creatinine 0.40 L Estimated GFR > 60.0 BUN/Creatinine Ratio 15.0 Glucose 130 H Calcium 7.5 L Magnesium Troponin I TSH Random Cortisol Assessment & Plan (1) Atypical chest pain: Problem details: No further chest pain, cardiac enzymes are negative Current visit: No Status: Acute (2) Hyponatremia: Problem details: Sodium improved. Would continue off HCTZ Ok to restart lisinopril Current visit: Yes Status: Acute (3) Hypertension: Problem details: continue ARTEMIO-I Current visit: Yes Status: Acute (4) Acute urinary retention: Problem details: Hill out, will check pvr Current visit: Yes Status: Acute Plan: Assessment/Plan Narrative: Ok to discharge from my perspective Quality VTE Deep Vein Thrombosis/Pulmonary Embolism Present on Admission: No
--- NOTE | 2018-02-23 17:16 | PM.DS.1 ---
History of Present Illness Date Patient Seen: 02/23/18 Time Patient Seen: 17:16 Chief complaint: *OPB*laparoscopic assisted vaginal hysterectomy Narrative: Patient underwent a laparoscopic assisted vaginal hysterectomy with anterior posterior repair on 02/21/2018. Discharge Providers Date of admission: 02/22/18 14:34 Primary care physician: Jaspal Sheldon MD Discharge provider: Bella Raya MD Discharge Date: 02/23/18 Summary Discharge Diagnosis: Status post laparoscopic-assisted vaginal hysterectomy with anterior posterior repair for symptomatic uterovaginal prolapse. Atypical chest pain Hyponatremia Hypertension Diabetes Hospital Course: Patient underwent a laparoscopic assisted vaginal hysterectomy with anterior posterior repair on 02/21/2018. On the 1st day postoperative the patient was not feeling well and lethargic. Initially was thought that she was having a reaction to her tramadol and then also was discovered she still had her scopolamine patch on which was removed. Patient began having some atypical chest pain. The hospitalist was asked to evaluate the patient for her atypical chest pain. Labs were found to show significant hyponatremia of 115. She also had hypo magnesium. Workup for cardiac event was negative. Over the next 24 hr her potassium was improved. The patient continued to improve she was not having pain. She was ambulatory. She had no further chest pain. She had normal bowel movement. She initially had a significant postvoid residual but with subsequent urination was able to urinate large amounts and decrease her postvoid residual. She has minimal vaginal bleeding. Patient's diabetes was stable throughout the hospitalization Exam Vital Signs (past 8 hours): - 02/23/18 13:30 Temperature 98.7 F Pulse Rate 69 Respiratory Rate 16 Blood Pressure 145/53 H Pulse Oximetry 98 Oxygen Delivery Method Room Air Oxygen Flow Rate 0 Narrative Exam Narrative: Patient's abdomen is soft, nontender. Her dressings are dry. Mild vaginal discharge. Extremities without edema and nontender. Objective Labs Result Diagrams: 02/23/18 06:20 02/23/18 06:20 Labs: Laboratory Results - last 24 hr 02/22/18 02/22/18 02/22/18 18:58 22:07 22:07 WBC RBC Hgb Hct MCV MCH MCHC RDW Plt Count Neut % (Auto) Lymph % (Auto) Mccormick % (Auto) Eos % (Auto) Baso % (Auto) Neut # (Auto) Sodium 115 L* 117 L* Potassium 3.5 Chloride 84 L Carbon Dioxide 25 BUN 5 L Creatinine 0.40 L Estimated GFR > 60.0 BUN/Creatinine Ratio 12.5 Glucose 180 H Calcium 7.4 L Magnesium Troponin I < 0.012 TSH 2.45 Random Cortisol 02/22/18 02/23/18 02/23/18 22:07 00:12 02:08 WBC RBC Hgb Hct MCV MCH MCHC RDW Plt Count Neut % (Auto) Lymph % (Auto) Mccormick % (Auto) Eos % (Auto) Baso % (Auto) Neut # (Auto) Sodium 122 L 126 L Potassium 4.2 Chloride Carbon Dioxide BUN Creatinine Estimated GFR BUN/Creatinine Ratio Glucose Calcium Magnesium 2.3 Troponin I TSH Random Cortisol 13.3 02/23/18 02/23/18 02/23/18 03:58 06:20 06:20 WBC 10.7 RBC 4.41 Hgb 13.1 Hct 37.0 MCV 84.0 MCH 29.6 MCHC 35.3 RDW 12.4 Plt Count 245 Neut % (Auto) 73.1 Lymph % (Auto) 13.7 L Mccormick % (Auto) 11.5 Eos % (Auto) 1.5 L Baso % (Auto) 0.2 Neut # (Auto) 7800 H Sodium 127 L 130 L Potassium 4.0 Chloride 96 L Carbon Dioxide 26 BUN 6 L Creatinine 0.40 L Estimated GFR > 60.0 BUN/Creatinine Ratio 15.0 Glucose 130 H Calcium 7.5 L Magnesium Troponin I TSH Random Cortisol Discharge Plan Discharge Plan Patient Disposition: Home Discharge Med Rec/Prescriptions Prescriptions: Continue ascorbic acid (vitamin C) [Vitamin C] 1,000 mg Tablet Extended Release 1,000 mg PO DAILY Qty: 0 RF: 0 multivitamin Capsule 1 cap PO DAILY Qty: 0 RF: 0 simvastatin 10 MG tablet 10 mg PO QPM Qty: 0 RF: 0 Calcium/Chloride/Magnesium (#SLOW-MAG 106 MG-186.5 MG-64 MG) 64 - 106 mg PO Q DAY Qty: 0 RF: 0 lisinopril 40 MG tablet 40 mg PO QDAY Qty: 0 RF: 0 diltiazem HCl [Cardizem LA] 120 MG tablet extended release 24 hr 120 mg PO QDAY Qty: 0 RF: 0 BORON/CA/CU/MG/MN/VIT D/ZINC (#CALCIUM 600 + MINERALS) 1 tab PO Q DAY Qty: 0 RF: 0 Fish Oil (#FISH OIL) 1 iu PO Q DAY Qty: 0 RF: 0 insulin lispro [Humalog U-100 Insulin] 100 UNIT/1 ML solution 10 - 20 unit SQ TID Qty: 0 RF: 0 cyanocobalamin (vitamin B-12) [Vitamin B-12] 1,000 mcg/mL Solution 1,000 mcg IM QMONTH Qty: 0 RF: 0 ondansetron [Zofran ODT] 4 MG tablet,disintegrating 4 mg Sublingual Q6HP PRNQty: 10 RF: 0 clobetasol 0.05 % ointment 0.05 % Topical DAILY Qty: 15 RF: 0 estradiol [Vagifem] 10 MCG tablet 10 mcg VG QDAY Qty: 20 RF: 3 estradiol [Estrace] 0.01 % cream 0.5 gm Vaginal SEE INSTRUCTIONS Qty: 30 RF: 2 gabapentin 600 mg Tablet 1,200 mg PO BEDTIME RF: 0 insulin glargine [Lantus U-100 Insulin] 100 unit/mL Solution 23 unit SUBCUT BEDTIME RF: 0 calcium carbonate-vitamin D3 [Calcium 600 + D(3)] 600 mg calcium- 200 unit Capsule 1 tab PO DAILY RF: 0 loratadine 10 mg Capsule 10 mg PO DAILY PRN (Reason: seasonal allergies) RF: 0 cyclobenzaprine 5 MG tablet 5 mg PO Q8H PRN (Reason: spasm/pain) RF: 0 oxycodone-acetaminophen [Percocet] 5 MG/325 MG tablet 1 tab PO Q4HP PRN (Reason: pain) RF: 0 fexofenadine 180 mg Tablet 180 mg PO DAILY RF: 0 zolpidem 5 mg Tablet 5 mg PO PRN PRN (Reason: Sleep) RF: 0 magnesium chloride 64 mg Tablet,Delayed Release (Dr/Ec) 64 mg PO DAILY RF: 0 levothyroxine 100 mcg tablet 1 tab PO DAILY RF: 0 digoxin [Digox] 125 mcg tablet 1 tab PO DAILY RF: 0 Discontinued hydrochlorothiazide 25 mg tablet 1 tab PO DAILY RF: 0 Follow up/Referrals: Veda Witt MD [Physician] - 1 Week (Incision check) Jaspal Sheldon MD [Primary Care Provider] - 1 Week (Followup atypical chest pain and hyponatremia ) Provider Discharge Instructions Diet: Carb-consistent/Diabetic Activity: Nothing in vagina for 6 weeks Skin/Wound/Dressing Care Report to your healthcare provider any signs of infection, such as:: chills, fever, increased pain and unusual drainage Dressing: May remove dressings on incisions, do not need to keep covered Discharge Data Primary Care Provider: Jaspal Sheldon V Attending Provider: Veda Witt Admit Date/Time: 02/22/18 14:34 Quality VTE Deep Vein Thrombosis/Pulmonary Embolism Present on Admission: No
[2018-02-23 17:19] VITALS: BP 150/82; PULSE 67
[2018-02-23] MEDS: SIMVASTATIN 10 MG TABLET PO (17:19)
[2018-02-23] MEDS: DIGOXIN 0.125 MG TABLET PO (17:19)
[2018-02-24 16:58] LABS: Osmolality, Serum 247 mosm/kg (260-310)
[2018-02-25 15:56] LABS: Osmolality Urine 79 mosm/kg (220-1300)
--- NOTE | 2018-04-01 13:01 | P.OP_ITS ---
Operative Date/Time/Diagnoses Date of procedure: 02/21/18 Time of procedure: 10:40 Pre-op diagnosis: Uterine prolapse Symptomatic cystocele and rectocele Post-op diagnosis: same Procedure: Procedures Operation Date: 02/21/18 07:45 Actual Procedures Side Surgeon p Laparoscopic Assisted Vag Hysterectomy w/Bilat S&O Veda Witt MD s Colporrhaphy Anterior/Posterior Colporrhaphy Veda Witt MD Indications: Symptomatic uterine prolapse, cystocele, and rectocele Surgeon: Veda Witt Vp Talent Management: Fahad Zaldivar Anesthesia Type: General Operative Notes Findings: 6 week size anteverted uterus Normal tubes and ovary Third-degree cystocele Third-degree rectocele Closure Type: primary Specimen(s): left tube & ovary, right tube & ovary and uterus Applied: catheter Estimated blood loss (mL): 100 Blood products transfused: none Procedure in detail: The patient was taken to the operating room where she was placed in the dorsal supine position. After adequate general endotracheal anesthesia was achieved, she was placed in the dorsal lithotomy position, and prepped and draped in the usual sterile fashion. A time-out was performed. A bivalve speculum was placed into the vagina, and a single-tooth tenaculum was placed on the anterior lip of the cervix. The cervical os was sequentially dilated until the ZUMI uterine manipulator could pass easily into the endometrial cavity. The single-tooth tenaculum was removed from the anterior lip of the cervix, and the bivalve speculum was removed from the vagina. Attention was then turned to the abdomen where 6 mL of half percent Marcaine with epinephrine were injected in the umbilical fold. A 5 mm incision was made. The Verhees needle was placed into the peritoneal cavity, and its placement confirmed by aspiration and drop test. The abdominal cavity was insufflated with 4 L of CO2. The Verhees needle was removed, and a 5 mm trocar was placed without difficulty. Initial inspection of the pelvis revealed the findings noted above. 2 other incisions were made midway between the pubic symphysis and umbilicus 4 cm lateral to the midline. These were 5 mm incisions. Two 5 mm trochars were placed under direct visualization. The right tube and ovary were grasped with an atraumatic grasper. The infundibulopelvic ligament on the right side was cauterized and cut with plasma kinetic. The round ligament and broad ligament were cauterized and cut. This was continued to the level of the uterine arteries. This was repeated on the patient's left side. The instruments were removed from the abdomen. Attention was then turned to the vagina where the ZUMI uterine manipulator was removed from the uterus. The cervix was grasped with a 4 tooth tenaculum. 10 mL of quarter percent Marcaine with epinephrine were injected circumferentially around the cervix. The cervix was circumscribed. The bladder and rectum were dissected off the lower uterine segment and cervix with an open moistened Ray- Tracy. The peritoneum was entered sharply with the Metzenbaum scissors anteriorly and a Florala placed. The peritoneum was entered posteriorly with the Metzenbaum scissors and the long weighted speculum was placed into the posterior cul-de-sac. The uterosacral cardinal ligament complexes were clamped , transected, and suture ligated with 0 Vicryl. These were attached to hemostat. The uterine arteries were clamped, transected, and suture ligated with 0 Vicryl. The uterus was handed off for specimen with the tubes and ovaries. The peritoneum was closed with a pursestring suture with 2-0 Vicryl. The vaginal cuff was closed with 0 Vicryl with a series of simple interrupted sutures. The tagged sutures were cut. 2 Allis clamps were placed at the apex of the cystocele. 6 mL of half percent Marcaine with epinephrine were injected and an incision was made with a #10 blade between the 2 Allis clamps. Wide Allis clamps were placed on the midline of the cystocele approximately 5. The mucosa was undermined using the Metzenbaum scissors and the mucosa incised in the midline moving the wide Allis clamps to the edges of the mucosa. The mucosa was dissected off the underlying fascia using an open moistened Ray-Tracy and a #10 blade. The fascia was reapproximated with 0 Vicryl with a series of horizontal mattress sutures. The excess vaginal mucosa was excised. The mucosa was closed using simple interrupted sutures with 2-0 Vicryl including the underlying fascia to close the space. The weighted speculum was removed from the vagina. Allis clamps were placed at the mucocutaneous junction at the introitus. 6 mL of half percent Marcaine with epinephrine were injected. An incision was made with a #10 blade between the 2 Allis clamps, and a triangular piece of skin and underlying subcutaneous tissue was removed. Allis clamps were placed in the midline of the rectocele. 10 mL of half percent Marcaine with epinephrine were injected submucosally. The mucosa was undermined using the Metzenbaum scissors and the mucosa incised in the midline, moving the wide Allis clamps to the mucosal edges. The underlying fascia was dissected off of th mucosa using an open moistened Ray-Tracy and a #10 blade. The fascia was reapproximated using 0 Vicryl with a series of horizontal mattress sutures. The excess vaginal mucosa was excised. The mucosa was closed using a series of simple interrupted sutures with 2-0 Vicryl including the underlying fascia to close the space. On the perineum 0 Vicryl was used to reapproximate the levator muscle. The subcutaneous layer was closed with 2-0 Vicryl. The skin was closed with 3-0 chromic in a subcuticular fashion. Hemostasis was achieved. A Betadine moistened vaginal pack was placed into the vagina. A rectal exam was done and there were no sutures palpable in the rectum. After gloves were changed, attention was turned back to the abdomen. The abdominal cavity was insufflated with 3.2 L of CO2. The pelvis was examined and there was no bleeding noted. The instruments were removed from the abdomen. The CO2 was allowed to escape. The incisions were closed with 4 0 undyed Vicryl in a subcuticular fashion. Steri-Strips, 2 x 2, and op site were placed. The urine was clear. Sponge, lap, and instrument counts were correct x-2. The patient tolerated the procedure well, was taken to PACU in stable condition. Complications: none Post-operative Condition: stable Disposition: PACU Plan for aftercare: To acute care after recovery
== END 2018-02-23 17:35 | disposition home or self-care (01) | DRG 742 ==
LOC: OR 02-23 07:48
PROVIDERS: Internal Medicine; Nurse Practitioner Gerontology; Admitting Provider Specialist; PCP Internal Medicine; Visit Provider Obstetrics & Gynecology
PROC: 0UT9FZZ Resection of Uterus, Via Natural or Artificial Opening With Percutaneous Endoscopic Assistance (ICD-10-PCS; principal; 2018-02-21 07:45)
DX: N81.4 Uterovaginal prolapse, unspecified (principal); I47.1 Supraventricular tachycardia; E87.1 Hypo-osmolality and hyponatremia; Z79.4 Long term (current) use of insulin; E11.40 Type 2 diabetes mellitus with diabetic neuropathy, unspecified; I10 Essential (primary) hypertension; I49.5 Sick sinus syndrome; Z95.0 Presence of cardiac pacemaker; I48.0 Paroxysmal atrial fibrillation; I65.23 Occlusion and stenosis of bilateral carotid arteries; E03.9 Hypothyroidism, unspecified; R11.0 Nausea; R33.9 Retention of urine, unspecified; R07.89 Other chest pain
CPT/HCPCS: 36415; 57260; 58552; 71045; 80048; 80053; 82533; 82550; 82962; 83735; 83930; 83935; 84132; 84295; 84443; 84484; 85025; 88305; 93005; 93010; J0131; J0330; J0690; J2250; J2270; J2405; J2704; J2765; J3010; J8501

== ENCOUNTER 2018-02-24 17:17 | Emergency (ER) | payer MEDICARE, OTHER, SELFPAY ==
[2018-02-21 12:32] VITALS: BMI 21.6
[2018-02-24 17:22] VITALS: BP 180/71; PULSE 67; RESP 16; TEMP 36.8; O2SAT 98
--- NOTE | 2018-02-24 17:48 | ED.LOWEXIN ---
HPI - Extremity Injury (Lower) General Chief Complaint: Extremity Injury, Lower Stated Complaint: SENT BY MD RT LEG PAIN, FEVER Time Seen by Provider: 02/24/18 17:36 Source: patient Mode of arrival: ambulatory Limitations: no limitations History of Present Illness HPI Narrative: 72-year-old female who underwent a laparoscopic we assisted vaginal hysterectomy on Wednesday here for evaluation today of a low-grade fever over the past 24 hr and also pain in the right leg. She was just discharged from the hospital approximately 24 hr ago. She has had an extended stay after the surgery due to hyponatremia. Patient states that she is having some bloody discharge from her urine. States that she has her expected postoperative abdominal pain. No vaginal discharge. Did have a bowel movement yesterday prior to being discharged from the hospital. No shortness of breath cough or wheezing Related Data Home Medications Medication Instructions Recorded Confirmed BORON/CA/CU/MG/MN/VIT D/ZINC 1 tab PO Q DAY #0 03/08/12 02/08/18 (#CALCIUM 600 + MINERALS) Calcium/Chloride/Magnesium 64 - 106 mg PO Q DAY #0 03/08/12 02/08/18 (#SLOW-MAG 106 MG-186.5 MG-64 MG) Fish Oil (#FISH OIL) 1 iu PO Q DAY #0 03/08/12 02/08/18 ascorbic acid (vitamin C) [Vitamin 1,000 mg PO DAILY #0 03/08/12 02/08/18 C] diltiazem HCl [Cardizem LA] 120 mg PO QDAY #0 03/08/12 02/08/18 lisinopril 40 mg PO QDAY #0 03/08/12 02/09/18 multivitamin 1 cap PO DAILY #0 03/08/12 02/08/18 simvastatin 10 mg PO QPM #0 03/08/12 02/08/18 cyanocobalamin (vitamin B-12) 1,000 mcg IM QMONTH #0 tab 01/24/13 02/08/18 [Vitamin B-12] insulin lispro [Humalog U-100 10 - 20 unit SQ TID #0 01/24/13 02/08/18 Insulin] calcium carbonate-vitamin D3 1 tab PO DAILY 02/08/18 02/08/18 [Calcium 600 + D(3)] cyclobenzaprine 5 mg PO Q8H PRN 02/08/18 02/08/18 gabapentin 1,200 mg PO BEDTIME 02/08/18 02/08/18 insulin glargine [Lantus U-100 23 unit SUBCUT BEDTIME 02/08/18 02/08/18 Insulin] loratadine 10 mg PO DAILY PRN 02/08/18 02/08/18 oxycodone-acetaminophen [Percocet] 1 tab PO Q4HP PRN 02/08/18 02/08/18 fexofenadine 180 mg PO DAILY 02/09/18 02/09/18 magnesium chloride 64 mg PO DAILY 02/09/18 02/22/18 zolpidem 5 mg PO PRN PRN 02/09/18 02/22/18 digoxin [Digox] 1 tab PO DAILY 02/21/18 02/21/18 hydrochlorothiazide 1 tab PO DAILY 02/21/18 02/21/18 levothyroxine 1 tab PO DAILY 02/21/18 02/21/18 Previous Rx's Medication Instructions Recorded ondansetron [Zofran ODT] 4 mg SUBLINGUAL Q6HP PRN #10 odt 03/07/16 clobetasol 0.05 % TOPICAL DAILY #15 gm 07/27/17 estradiol [Vagifem] 10 mcg VG QDAY #20 tab 07/27/17 estradiol [Estrace] 0.5 gm VAGINAL SEE INSTRUCTIONS 08/03/17 #30 gm Allergies Allergy/AdvReac Type Severity Reaction Status Date / Time Penicillins Allergy Mild Verified 02/14/18 15:41 Review of Systems Constitutional Reports fever(s) Cardiovascular Denies chest pain and Denies dyspnea Respiratory Denies cough and Denies dyspnea Gastrointestinal Gastrointestinal: Reports abdominal pain, Denies constipation, Denies nausea and Denies vomiting Genitourinary Reports hematuria, Denies dysuria, Denies pelvic pain, Denies flank pain and Denies vaginal discharge Musculoskeletal Denies back pain, Reports myalgias ( right calf), Reports arthralgias ( right knee) and Denies numbness Integumentary/Breasts Comments: surgical incision on her abdomen Neurologic Denies numbness Hematologic/Lymphatic Denies easy bleeding and Denies easy bruising [facility] Medical History Afib (Acute) Allergic rhinitis (Acute) B12 deficiency (Acute) Back injury (Acute ~1997) Carotid artery stenosis (Acute) Cervical spine degeneration (Acute) Depression (Acute) Diabetes (Acute) Diabetic neuropathy (Acute) Duodenal diverticulum (Acute) Dyspnea on exertion (Acute) History of GI bleed (Acute) History of bronchitis (Acute) History of cardioversion (Acute ~2002) History of chest pain (Acute) History of nephrolithiasis (Acute) Iron deficiency anemia (Acute) Kidney lesion (Acute) Osteopenia (Acute) Pacemaker (Acute) Palpitations (Acute) Paroxysmal SVT (supraventricular tachycardia) (Acute) Pericarditis (Acute) Pulmonary nodule (Acute) Pure hypercholesterolemia (Acute) Reactive airway disease (Acute) Urinary frequency (Acute) Vasculitis (Acute) Crohn's disease (Chronic 2014) Hypertension (Chronic) Hypothyroidism (Chronic) Surgical History History of cardiac radiofrequency ablation (Acute) History of lithotripsy (Acute) History of repair of pyloric stenosis (Acute) History of cataract removal with insertion of prosthetic lens (Resolved 2013) History of tonsillectomy (Resolved 1969) Pyloric stenosis in adult (Resolved ~1964) Status post appendectomy (Resolved 1959) Status post colonoscopy (Resolved 2014) Social History household members: spouse and children Smoking Status: Never smoker alcohol intake: current Exam Initial Vital Signs Initial Vital Signs: Vital Signs Temperature 98.2 F 02/24/18 17:22 Pulse Rate 67 02/24/18 17:22 Respiratory Rate 16 02/24/18 17:22 Blood Pressure 180/71 H 02/24/18 17:22 Pulse Oximetry 98 02/24/18 17:22 Const General: cooperative, healthy appearing, comfortable, well developed, well groomed and No acute distress Orientation: alert, awake and oriented x3 HENMT Head: normal to inspection and normocephalic Resp Effort & Inspection: normal respiratory effort Auscultation: clear to auscultation bilaterally Cardio Rate: regular rate Rhythm: regular rhythm Pulses: radial pulses present and dorsalis pedis present on the right GI Inspection: non-distended Palpation: soft, No guarding, No rigid and tender ( diffusely tender) Skin Lesions: no lesions Rashes: no rashes Neuro General: alert, awake and oriented x3 Sensory Exam: no sensory deficits noted Extrem Other: right ankle unremarkable right hip unremarkable Full range of motion right knee. Does have some tenderness to the right calf muscle no effusion Psych Appearance: grossly normal and well kempt Course Orders Ordered: ED Orders 02/24/18 17:49 US periph venous low extrem rt Stat Basic Metabolic Panel Stat Complete Blood Count AUTO DIFF Stat Magnesium Stat Phosphorous Stat Urinalysis and Microscopic Stat Vital Signs - 8 hr 02/24/18 17:22 Temperature 98.2 F Pulse Rate 67 Respiratory Rate 16 Blood Pressure 180/71 H Pulse Oximetry 98 MDM - Extremity Injury (Lower) MDM Narrative Medical decision making narrative: Patient is nontoxic appearing. Has her expected postoperative abdominal pain. No signs of infection on exam. Will obtain a urine electrolytes. Will also obtain a right lower extremity DVT ultrasound. Care turned over to night provider at change of shift to follow up and disposition. Discharge Plan Departure Prescriptions: No Action ascorbic acid (vitamin C) [Vitamin C] 1,000 mg Tablet Extended Release 1,000 mg PO DAILY Qty: 0 RF: 0 multivitamin Capsule 1 cap PO DAILY Qty: 0 RF: 0 simvastatin 10 MG tablet 10 mg PO QPM Qty: 0 RF: 0 Calcium/Chloride/Magnesium (#SLOW-MAG 106 MG-186.5 MG-64 MG) 64 - 106 mg PO Q DAY Qty: 0 RF: 0 lisinopril 40 MG tablet 40 mg PO QDAY Qty: 0 RF: 0 diltiazem HCl [Cardizem LA] 120 MG tablet extended release 24 hr 120 mg PO QDAY Qty: 0 RF: 0 BORON/CA/CU/MG/MN/VIT D/ZINC (#CALCIUM 600 + MINERALS) 1 tab PO Q DAY Qty: 0 RF: 0 Fish Oil (#FISH OIL) 1 iu PO Q DAY Qty: 0 RF: 0 insulin lispro [Humalog U-100 Insulin] 100 UNIT/1 ML solution 10 - 20 unit SQ TID Qty: 0 RF: 0 cyanocobalamin (vitamin B-12) [Vitamin B-12] 1,000 mcg/mL Solution 1,000 mcg IM QMONTH Qty: 0 RF: 0 ondansetron [Zofran ODT] 4 MG tablet,disintegrating 4 mg Sublingual Q6HP PRNQty: 10 RF: 0 clobetasol 0.05 % ointment 0.05 % Topical DAILY Qty: 15 RF: 0 estradiol [Vagifem] 10 MCG tablet 10 mcg VG QDAY Qty: 20 RF: 3 estradiol [Estrace] 0.01 % cream 0.5 gm Vaginal SEE INSTRUCTIONS Qty: 30 RF: 2 gabapentin 600 mg Tablet 1,200 mg PO BEDTIME RF: 0 insulin glargine [Lantus U-100 Insulin] 100 unit/mL Solution 23 unit SUBCUT BEDTIME RF: 0 calcium carbonate-vitamin D3 [Calcium 600 + D(3)] 600 mg calcium- 200 unit Capsule 1 tab PO DAILY RF: 0 loratadine 10 mg Capsule 10 mg PO DAILY PRN (Reason: seasonal allergies) RF: 0 cyclobenzaprine 5 MG tablet 5 mg PO Q8H PRN (Reason: spasm/pain) RF: 0 oxycodone-acetaminophen [Percocet] 5 MG/325 MG tablet 1 tab PO Q4HP PRN (Reason: pain) RF: 0 fexofenadine 180 mg Tablet 180 mg PO DAILY RF: 0 zolpidem 5 mg Tablet 5 mg PO PRN PRN (Reason: Sleep) RF: 0 magnesium chloride 64 mg Tablet,Delayed Release (Dr/Ec) 64 mg PO DAILY RF: 0 levothyroxine 100 mcg tablet 1 tab PO DAILY RF: 0 hydrochlorothiazide 25 mg tablet 1 tab PO DAILY RF: 0 digoxin [Digox] 125 mcg tablet 1 tab PO DAILY RF: 0
--- NOTE | 2018-02-24 17:49 | DI.US.S_ITS ---
PROCEDURE: US PERIPH VENOUS LOW EXTREM RT INDICATIONS: PAIN 3 DAYS POST OP TECHNIQUE: Real-time imaging, as well as color and pulse Doppler interrogation, were performed of the lower extremity deep veins from the inguinal ligament to the popliteal fossa. COMPARISON: [facility], US, CAROTID ARTERY DOPPLER BILAT, 08/14/2016, 14:20. [facility], US, ABDOMEN COMPLETE, 05/16/2015, 11:35. [facility]ound, US, CAROTID DUPLEX DOPPLER BILAT, 03/27/2013, 13:17. [facility], US, THYROID, 07/20/2012, 11:25. FINDINGS: The deep veins are normally compressible, and free of intraluminal thrombus. Color and pulse Doppler demonstrate normal phasic intraluminal flow. There is a 4.8 x 1.0 x 0.9 cm irregular hypoechoic fluid collection in the right popliteal fossa, suggestive of a Wolff's cyst. IMPRESSION: #1. No ultrasound evidence of deep venous thrombosis of the right lower extremity. #2. 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 Dictated by: Henrique Gudino M.D. on 02/24/2018 at 19:35 Approved by: Henrique Gudino M.D. on 02/24/2018 at 19:37
[2018-02-24 18:18] LABS: Add Manual Diff / Slide Review NO; Basophils Percent Auto 0.5 % (0-2); Eosinophils Percent Auto 4.9 % (2-4); Hematocrit 39.2 % (36-46); Hemoglobin 13.5 g/dL (12.0-16.0); Lymphocytes Percent Auto 16.6 % (25-40); Mean Corpuscular HGB Conc 34.5 % (30-36); Mean Corpuscular Hemoglobin 29.4 PG (26-34); Mean Corpuscular Volume 85.3 fL (80-100); Monocytes Percent Auto 9.7 % (3-14); Neutrophils Absolute Auto 7900 /uL (3000-5900); Neutrophils Percent Auto 68.3 % (50-75); Platelet Count 301 X10^3/uL (150-400); Red Blood Cell Count 4.59 X10^6/uL (4.0-5.2); Red Cell Distribution Width 12.8 % (11.6-14.8); White Blood Cell Count 11.6 X10^3/uL (4.5-11.0)
[2018-02-24 18:26] LABS: Blood Urea Nitrogen 11 mg/dL (7-17); Calcium 8.8 mg/dL (8.4-10.2); Carbon Dioxide 28 mmol/L (22-32); Chloride 97 mmol/L (98-107); Estimated Glomerular Filt Rate > 60.0 mL/min (>60); Glucose 118 mg/dL (80-110); HEMOLYSIS 19 (0-50); Magnesium 1.8 mg/dL (1.6-2.3); Phosphorous 2.9 mg/dL (2.8-4.1); Potassium 4.1 mmol/L (3.4-5.1); Sodium 133 mmol/L (137-145)
[2018-02-24 19:18] VITALS: BP 156/54; PULSE 60; TEMP 37.2; O2SAT 97
== END 2018-02-24 19:19 | disposition home or self-care (01) ==
PROVIDERS: Emergency Medicine; Emergency Provider Emergency Medicine; PCP Internal Medicine
DX: M79.604 Pain in right leg (principal)
CPT/HCPCS: 36591; 80048; 81003; 83735; 84100; 85025; 93971; 99283; 99284

== ENCOUNTER 2018-03-15 00:32 | Emergency (ER) | payer MEDICARE, OTHER, SELFPAY ==
[2018-02-21 12:32] VITALS: BMI 21.6
[2018-03-15 00:42] VITALS: BP 226/77; PULSE 78; RESP 16; TEMP 36.7; O2SAT 100; BMI 20.5
--- NOTE | 2018-03-15 00:59 | DI.CT.S_ITS ---
PROCEDURE: CT HEAD/BRAIN WO CON INDICATIONS: hypertension, headache TECHNIQUE: Noncontrast 4.5 mm thick angled axial sections acquired from the foramen magnum to the vertex, with coronal and sagittal reformats. For radiation dose reduction, the following was used: automated exposure control, adjustment of mA and/or kV according to patient size. COMPARISON: None. FINDINGS: Image quality: Excellent. CSF spaces: Basal cisterns are patent. No extra-axial fluid collections. The ventricles are symmetric in size and shape. Brain: No intracranial bleeds or masses. There is cerebral volume loss for age, with resultant ventricular and sulcal prominence. There are periventricular and deep white matter chronic small vessel ischemic changes. There is intracranial internal carotid artery atherosclerosis. Skull and face: Calvarium and visualized facial bones appear intact, without suspicious lesions. Sinuses: Visualized sinuses and mastoids are clear. IMPRESSION: No acute intracranial disease process. Dictated by: Mayte Deluna MD, PhD on 03/15/2018 at 7:24 Approved by: Mayte Deluna MD, PhD on 03/15/2018 at 7:25
--- NOTE | 2018-03-15 00:59 | DI.RAD.S_ITS ---
PROCEDURE: XR CHEST 1V INDICATIONS: hypertension, chest pain TECHNIQUE: One view of the chest was acquired. COMPARISON: [facility], CR, XR CHEST 2V, 11/18/2017, 16:17. [facility], CR, XR CHEST 1V, 02/22/2018, 15:47. FINDINGS: Surgical changes and devices: There is a cardiac pacemaker in expected position. Lungs and pleura: No pleural effusions or pneumothorax. Lungs are clear. Mediastinum: Mediastinal contours appear normal. Heart size is normal. Bones and chest wall: No suspicious bony lesions. Overlying soft tissues appear unremarkable. IMPRESSION: No acute cardiopulmonary disease. Dictated by: Zuly Adkins M.D. on 03/15/2018 at 8:50 Approved by: Zuly Adkins M.D. on 03/15/2018 at 8:51
--- NOTE | 2018-03-15 01:00 | ED.GENADULT ---
HPI - General Adult General Chief complaint: Hypertension Stated complaint: states bp is high, surgery 2 wks ago Time Seen by Provider: 03/15/18 00:44 Source: patient and old records reviewed Mode of arrival: ambulatory Limitations: no limitations History of Present Illness HPI narrative: this is a 72-year-old female comes to the emergency department with complaint of elevated blood pressure. Patient has checked her blood pressure of 3-4 times this evening. Patient states her pressure keeps being higher each time she checked it, she does take blood pressure medication she did stop her hydrochlorothiazide fairly recently after having a hyponatremia which she was hospitalized for. She states her sodium was around 115. just prior to this she had been hospitalized for hysterectomy followed by the hyponatremia hospitalization. Patient states this evening she has had a headache although she describes it more as mild, she has had a little bit of chest pain in the front and the back. She has had no shortness of breath. She has felt no nausea or vomiting, she is not really short of breath. She denies any fevers. 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 Patient has not been started on any new medications. Related Data Home Medications Medication Instructions Recorded Confirmed ascorbic acid (vitamin C) [Vitamin 1,000 mg PO DAILY #0 03/08/12 02/24/18 C] diltiazem HCl [Cardizem LA] 120 mg PO QDAY #0 03/08/12 02/24/18 lisinopril 40 mg PO QDAY #0 03/08/12 02/24/18 multivitamin 1 cap PO DAILY #0 03/08/12 02/24/18 omega 9-few-fag-fish oil [Fish Oil] 1 iu PO Q DAY #0 03/08/12 02/24/18 simvastatin 10 mg PO QPM #0 03/08/12 02/24/18 insulin lispro [Humalog U-100 10 - 20 unit SQ TID #0 01/24/13 02/24/18 Insulin] calcium carbonate-vitamin D3 1 tab PO DAILY 02/08/18 02/24/18 [Calcium 600 + D(3)] cyclobenzaprine 5 mg PO Q8H PRN 02/08/18 02/24/18 gabapentin 1,200 mg PO BEDTIME 02/08/18 02/24/18 insulin glargine [Lantus U-100 23 unit SUBCUT BEDTIME 02/08/18 02/24/18 Insulin] loratadine 10 mg PO QPM PRN 02/08/18 02/24/18 fexofenadine 180 mg PO DAILY 02/09/18 02/24/18 magnesium chloride 64 mg PO QPM 02/09/18 02/24/18 digoxin [Digox] 1 tab PO DAILY 02/21/18 02/24/18 levothyroxine 1 tab PO DAILY 02/21/18 02/24/18 aspirin 81 mg PO DAILY 02/24/18 02/24/18 cyanocobalamin (vitamin B-12) 1,000 mcg IM QMONTH 02/24/18 02/24/18 Previous Rx's Medication Instructions Recorded clobetasol 0.05 % TOPICAL DAILY #15 gm 07/27/17 Allergies Allergy/AdvReac Type Severity Reaction Status Date / Time Penicillins Allergy Mild Verified 03/01/18 10:40 Review of Systems Review of Systems All systems reviewed & are unremarkable except as noted in HPI and below Constitutional Denies fatigue, Denies fever(s), Reports headache(s), Denies lethargy and Denies weakness Eyes Denies blurry vision ENT Ears, Nose, Mouth, and Throat: Reports headache(s) Cardiovascular Denies chest pain, Denies diaphoresis, Denies syncope, Denies rapid heart rate, Denies edema, Denies lightheadedness, Denies dyspnea and Denies dyspnea on exertion Respiratory Denies cough, Denies hemoptysis, Denies dyspnea, Denies dyspnea on exertion and Denies wheezing Gastrointestinal Gastrointestinal: Denies abdominal pain, Reports belching, Denies melena, Denies change in bowel habits, Denies constipation, Reports excessive flatus, Denies diarrhea, Denies nausea and Denies vomiting Genitourinary Denies hematuria, Denies dysuria, Denies flank pain, Denies urinary incontinence and Denies urinary urgency Musculoskeletal Denies numbness Integumentary/Breasts Denies rash Neurologic Denies syncope, Reports headache(s), Denies numbness, Denies paresthesias and Denies weakness Endocrine Denies fatigue Allergic/Immunologic Denies wheezing PFSH Medical History Afib (Acute) Allergic rhinitis (Acute) B12 deficiency (Acute) Back injury (Acute ~1997) Carotid artery stenosis (Acute) Cervical spine degeneration (Acute) Depression (Acute) Diabetes (Acute) Diabetic neuropathy (Acute) Duodenal diverticulum (Acute) Dyspnea on exertion (Acute) History of GI bleed (Acute) History of bronchitis (Acute) History of cardioversion (Acute ~2002) History of chest pain (Acute) History of nephrolithiasis (Acute) Iron deficiency anemia (Acute) Kidney lesion (Acute) Osteopenia (Acute) Pacemaker (Acute) Palpitations (Acute) Paroxysmal SVT (supraventricular tachycardia) (Acute) Pericarditis (Acute) Pulmonary nodule (Acute) Pure hypercholesterolemia (Acute) Reactive airway disease (Acute) Urinary frequency (Acute) Vasculitis (Acute) Crohn's disease (Chronic 2014) Hypertension (Chronic) Hypothyroidism (Chronic) Surgical History History of cardiac radiofrequency ablation (Acute) History of lithotripsy (Acute) History of repair of pyloric stenosis (Acute) History of cataract removal with insertion of prosthetic lens (Resolved 2013) History of tonsillectomy (Resolved 1969) Pyloric stenosis in adult (Resolved ~1964) Status post appendectomy (Resolved 1959) Status post colonoscopy (Resolved 2014) Social History household members: spouse and children Smoking Status: Never smoker alcohol intake: current Exam Narrative Exam Narrative: GEN: Thin well-appearing female, alert and oriented x 3, patient appears to be in mild distress. HEENT: Atraumatic, pupils are equal round reactive to light, extraocular movements are intact, no facial droop. HEART: Regular rate and rhythm without murmur, clicks, rubs. No carotid bruits, pulses are equal in upper and lower extremities LUNGS:Lungs clear to auscultation, no wheezes, rales, crackles, chest moves symmetrically ABD:bowel sounds normal, soft, non-tender, no guarding, rebound, rigidity, no masses noted, no hepatosplenomegaly :No CVA tenderness MSCL: Non-tender, no muscle atrophy, muscles strength 5/5 upper and lower extremities, full range of motion NEURO:CN 2-12 intact, sensation normal Initial Vital Signs Initial Vital Signs: Vital Signs Temperature 98.0 F 03/15/18 00:42 Pulse Rate 78 03/15/18 00:42 Respiratory Rate 16 03/15/18 00:42 Blood Pressure 226/77 H 03/15/18 00:42 Pulse Oximetry 100 03/15/18 00:42 Course Orders Ordered: ED Orders 03/15/18 00:45 B Type Natriuretic Peptide Stat Complete Blood Count AUTO DIFF Stat Comprehensive Metabolic Panel Stat Digoxin Stat Lipase Stat Troponin & CK Cardiac Panel Stat 03/15/18 00:59 CT head/brain wo con Stat XR chest 1V Stat 03/15/18 02:20 Urine Culture Stat Urine Microscopic Stat 03/15/18 03:05 EKG-12 Lead Stat 03/15/18 03:13 Troponin I Stat Discontinued Medications Hydralazine HCl (Apresoline) 10 mg IV NOW ONE Stop: 03/15/18 02:39 Last Admin: 03/15/18 03:37 Dose: 10 mg Vital Signs - 8 hr 03/15/18 00:42 03/15/18 01:49 03/15/18 02:57 Temperature 98.0 F Pulse Rate 78 60 60 Respiratory Rate 16 15 12 Blood Pressure 226/77 H Blood Pressure [Right Arm] 174/67 H 171/63 H Pulse Oximetry 100 99 98 03/15/18 03:08 03/15/18 03:37 03/15/18 04:20 Temperature Pulse Rate 60 60 73 Respiratory Rate 14 18 Blood Pressure 210/69 H 154/64 H Blood Pressure [Right Arm] 160/71 H Pulse Oximetry 97 Medical Decision Making Lab Data Lab results reviewed: Yes I reviewed the patient's lab results. Result diagrams: 03/15/18 00:45 03/15/18 00:45 Lab Results 03/15/18 03/15/18 03/15/18 Range/Units 00:45 00:45 00:45 WBC 10.8 (4.5-11.0) X10^3/uL RBC 5.09 (4.0-5.2) X10^6/uL Hgb 14.8 (12.0-16.0) g/dL Hct 43.1 (36-46) % MCV 84.7 (80-100) fL MCH 29.1 (26-34) PG MCHC 34.4 (30-36) % RDW 12.7 (11.6-14.8) % Plt Count 314 (150-400) X10^3/uL Neut % (Auto) 55.3 (50-75) % Lymph % (Auto) 29.0 (25-40) % Karnes % (Auto) 9.4 (3-14) % Eos % (Auto) 5.6 H (2-4) % Baso % (Auto) 0.7 (0-2) % Neut # (Auto) 6000 H (7221-4393) /uL Sodium 136 L (137-145) mmol/L Potassium 4.5 (3.4-5.1) mmol/L Chloride 99 (98-107) mmol/L Carbon Dioxide 26 (22-32) mmol/L BUN 8 (7-17) mg/dL Creatinine 0.50 L (0.52-1.04) mg/dL Estimated GFR > 60.0 (>60) mL/min BUN/Creatinine Ratio 16.0 (6-22) Glucose 148 H (80-110) mg/dL Calcium 9.4 (8.4-10.2) mg/dL Total Bilirubin 0.4 (0.2-1.3) mg/dL AST 33 (14-36) IU/L ALT 23 (9-52) IU/L Alkaline Phosphatase 93 (38-126) U/L Total Creatine Kinase 32 (30-135) U/L CK-MB (CK-2) TNP CK-MB (CK-2) Rel Index TNP Troponin I < 0.012 (0.01-0.034) ng/mL B-Natriuretic Peptide 46.2 (<100) Total Protein 7.1 (6.3-8.2) g/dL Albumin 4.3 (3.5-5.0) g/dL Globulin 2.8 (1.7-4.1) g/dL Albumin/Globulin Ratio 1.5 (1.0-2.8) Lipase 51 (23-300) U/L Urine RBC (0-5/HPF) Urine WBC (0-5/HPF) Ur Renal Epithelial Cell Urine Bacteria (None) Ur Culture Indicated? Micro UA Comment Digoxin 0.9 (0.8-2.0) ng/mL 03/15/18 03/15/18 Range/Units 02:20 03:13 WBC (4.5-11.0) X10^3/uL RBC (4.0-5.2) X10^6/uL Hgb (12.0-16.0) g/dL Hct (36-46) % MCV (80-100) fL MCH (26-34) PG MCHC (30-36) % RDW (11.6-14.8) % Plt Count (150-400) X10^3/uL Neut % (Auto) (50-75) % Lymph % (Auto) (25-40) % Karnes % (Auto) (3-14) % Eos % (Auto) (2-4) % Baso % (Auto) (0-2) % Neut # (Auto) (6445-5963) /uL Sodium (137-145) mmol/L Potassium (3.4-5.1) mmol/L Chloride (98-107) mmol/L Carbon Dioxide (22-32) mmol/L BUN (7-17) mg/dL Creatinine (0.52-1.04) mg/dL Estimated GFR (>60) mL/min BUN/Creatinine Ratio (6-22) Glucose (80-110) mg/dL Calcium (8.4-10.2) mg/dL Total Bilirubin (0.2-1.3) mg/dL AST (14-36) IU/L ALT (9-52) IU/L Alkaline Phosphatase (38-126) U/L Total Creatine Kinase (30-135) U/L CK-MB (CK-2) CK-MB (CK-2) Rel Index Troponin I < 0.012 (0.01-0.034) ng/mL B-Natriuretic Peptide (<100) Total Protein (6.3-8.2) g/dL Albumin (3.5-5.0) g/dL Globulin (1.7-4.1) g/dL Albumin/Globulin Ratio (1.0-2.8) Lipase (23-300) U/L Urine RBC 0-1/hpf (0-5/HPF) Urine WBC 1-5/hpf (0-5/HPF) Ur Renal Epithelial Cell 0-1/hpf Urine Bacteria None seen (None) Ur Culture Indicated? Specimen cultured Micro UA Comment Not Reportable Digoxin (0.8-2.0) ng/mL Urine Dip Bedside Urine Glucose Negative Bedside Urine Bilirubin - Negative Bedside Urine Ketone - Negative Urine Specific [place] 1.010 Bedside Urine Occult Blood +/- Bedside Urine pH 7.5 Bedside Urine Protein - Negative Bedside Urine Urobilinogen - Negative Bedside Urine Nitrite - Negative Bedside Urine Leukocytes +++ 500 Esterase Point of care testing: Urine Dip Bedside Urine Glucose Negative Bedside Urine Bilirubin - Negative Bedside Urine Ketone - Negative Urine Specific [place] 1.010 Bedside Urine Occult Blood +/- Bedside Urine pH 7.5 Bedside Urine Protein - Negative Bedside Urine Urobilinogen - Negative Bedside Urine Nitrite - Negative Bedside Urine Leukocytes +++ 500 Esterase Imaging Data Chest x-ray: Attestation: I personally reviewed and interpreted this imaging study as follows: My impression: nap, pacemaker leads appear in place, no infiltrate, no fx. CT scan - head: Radiologist's impression: No acute intracranial process is identified. Mild age-related atrophic change. Mild age-related ischemic demyelination of the white matter. ECG Data Attestation: I personally reviewed and interpreted this ECG as follows: Prior ECG tracings: available for review Interpretation: EKG #1 sinus rhythm rate of 69 P are 2 1 QRS of 105 and QTC of 410. No ST elevation or depression appreciated. Nonspecific. Patient has a prior EKG from 02/22/2018. EKG 2. Shows atrial paced rhythm with a rate of 60, P are 276 Trino of 101 QTC of 427. Patient's EKG looks slightly different but she does also have a paced rhythm. Nonspecific ST change. MDM Narrative Additional Information: Patient pressure drops to 170 systolic at the lowest but will then return to 190 range. She started having chest pain around 9:30pm, troponin is negative but will repeat along with EKG. Plan to given hydralazine and reevaluate BP. Patient did not have any other adjustment in BP meds when hydrochlorothiazide was stopped 2nd to hyponatremia. Patient BP intermittently improves so hydralazine in room but not given yet. Plan for repeat troponin and EKG. Patient does have changes on EKG but Um she was not based on her prior and is on 2nd. Secondary troponin is negative. Patient was eventually given a dose of hydralazine as her pressure was sort of up and down intermittently. We discussed that she could increase her lisinopril up to 80 mg total or take 2 tablets. But I would recommend that she called her primary care physician in the morning to discuss dosage plan and medication treatment plan. Also discussed that she should keep track of her blood pressures and check the only 2 or 3 times daily and intermittent and varying intervals. Discharge Plan Departure Patient Disposition: Home Clinical Impression: Hypertension Discharge Date/Time: 03/15/18 04:24 Interventions: ED Discharge Assessment Last Done: 03/15/18 04:20 Instructions: DI for High Blood Pressure Activity Restrictions/Additional Instructions: Follow up with your physician regarding your blood pressure, call this morning to set up a follow up appointment. Continue home medication as prescribed. Return to ER for fevers, sudden severe headaches, vision changes, new weakness, numbness or difficulty with speech or movement, chest pain, passing out or shortness of breath. Prescriptions: No Action ascorbic acid (vitamin C) [Vitamin C] 1,000 mg Tablet Extended Release 1,000 mg PO DAILY Qty: 0 RF: 0 multivitamin Capsule 1 cap PO DAILY Qty: 0 RF: 0 simvastatin 10 MG tablet 10 mg PO QPM Qty: 0 RF: 0 lisinopril 40 MG tablet 40 mg PO QDAY Qty: 0 RF: 0 diltiazem HCl [Cardizem LA] 120 MG tablet extended release 24 hr 120 mg PO QDAY Qty: 0 RF: 0 omega 4-bxq-hqs-fish oil [Fish Oil] 1,000 mg (120 mg-180 mg) Capsule 1 iu PO Q DAY Qty: 0 RF: 0 insulin lispro [Humalog U-100 Insulin] 100 UNIT/1 ML solution 10 - 20 unit SQ TID Qty: 0 RF: 0 clobetasol 0.05 % ointment 0.05 % Topical DAILY Qty: 15 RF: 0 gabapentin 600 mg Tablet 1,200 mg PO BEDTIME RF: 0 insulin glargine [Lantus U-100 Insulin] 100 unit/mL Solution 23 unit SUBCUT BEDTIME RF: 0 calcium carbonate-vitamin D3 [Calcium 600 + D(3)] 600 mg calcium- 200 unit Capsule 1 tab PO DAILY RF: 0 loratadine 10 mg Capsule 10 mg PO QPM PRN (Reason: seasonal allergies) RF: 0 cyclobenzaprine 5 MG tablet 5 mg PO Q8H PRN (Reason: spasm/pain) RF: 0 fexofenadine 180 mg Tablet 180 mg PO DAILY RF: 0 magnesium chloride 64 mg Tablet,Delayed Release (Dr/Ec) 64 mg PO QPM RF: 0 levothyroxine 100 mcg tablet 1 tab PO DAILY RF: 0 digoxin [Digox] 125 mcg tablet 1 tab PO DAILY RF: 0 aspirin 81 mg Tablet,Delayed Release (Dr/Ec) 81 mg PO DAILY RF: 0 cyanocobalamin (vitamin B-12) 1,000 mcg/mL Solution 1,000 mcg IM QMONTH RF: 0
[2018-03-15 01:16] LABS: Add Manual Diff / Slide Review NO; Basophils Percent Auto 0.7 % (0-2); Eosinophils Percent Auto 5.6 % (2-4); Hematocrit 43.1 % (36-46); Hemoglobin 14.8 g/dL (12.0-16.0); Mean Corpuscular HGB Conc 34.4 % (30-36); Mean Corpuscular Hemoglobin 29.1 PG (26-34); Mean Corpuscular Volume 84.7 fL (80-100); Monocytes Percent Auto 9.4 % (3-14); Neutrophils Absolute Auto 6000 /uL (3000-5900); Neutrophils Percent Auto 55.3 % (50-75); Platelet Count 314 X10^3/uL (150-400); Red Blood Cell Count 5.09 X10^6/uL (4.0-5.2); Red Cell Distribution Width 12.7 % (11.6-14.8); White Blood Cell Count 10.8 X10^3/uL (4.5-11.0)
--- NOTE | 2018-03-15 01:17 | PC.NURSE ---
Attempted to start PIV. Blood obtained for labs but unable to thread catheter. No IV in place. Dr Robles notified, will monitor for now. Pt currently at DI for CT and Xray
[2018-03-15 01:25] LABS: Alanine Aminotransferase 23 IU/L (9-52); Albumin 4.3 g/dL (3.5-5.0); Albumin Globulin Ratio 1.5 (1.0-2.8); Alkaline Phosphatase 93 U/L (38-126); Aspartate Aminotransferase 33 IU/L (14-36); Bilirubin Total 0.4 mg/dL (0.2-1.3); Blood Urea Nitrogen 8 mg/dL (7-17); Calcium 9.4 mg/dL (8.4-10.2); Carbon Dioxide 26 mmol/L (22-32); Chloride 99 mmol/L (98-107); Creatine Kinase 32 U/L (30-135); Estimated Glomerular Filt Rate > 60.0 mL/min (>60); Globulin 2.8 g/dL (1.7-4.1); Glucose 148 mg/dL (80-110); Lipase 51 U/L (23-300); Sodium 136 mmol/L (137-145); Total Protein 7.1 g/dL (6.3-8.2)
[2018-03-15 01:27] LABS: HEMOLYSIS 87 (0-50)
[2018-03-15 01:28] LABS: Potassium 4.5 mmol/L (3.4-5.1)
[2018-03-15 01:37] LABS: Digoxin 0.9 ng/mL (0.8-2.0); Troponin I < 0.012 ng/mL (0.01-0.034)
[2018-03-15 01:40] LABS: B Type Natriuretic Peptide 46.2 (<100)
[2018-03-15 01:49] VITALS: BP 174/67; PULSE 60; RESP 15; O2SAT 99
[2018-03-15 02:24] LABS: Bacteria Urine None Seen
[2018-03-15 02:31] LABS: Culture Indicated Urine Specimen Cultured; RBC Urine 0-1/HPF (0-5/HPF); Renal Epithelial Cells Urine 0-1/HPF; WBC Urine 1-5/HPF (0-5/HPF)
[2018-03-15 02:57] VITALS: BP 171/63; PULSE 60; RESP 12; O2SAT 98
[2018-03-15 03:08] VITALS: BP 160/71; PULSE 60; RESP 14
--- NOTE | 2018-03-15 03:09 | PC.NURSE ---
Before giving IV hydralazine, BP read 160/71. Dr Robles notified, will hold hydralazine for now.
[2018-03-15 03:37] VITALS: BP 210/69; PULSE 60
[2018-03-15] MEDS: HYDRALAZINE 20 MG/ML VIAL 10 MG IV (03:37)
[2018-03-15 03:42] LABS: Troponin I < 0.012 ng/mL (0.01-0.034)
[2018-03-15 04:20] VITALS: BP 154/64; PULSE 73; RESP 18; O2SAT 97
--- NOTE | 2018-03-19 14:56 | PC.NURSE ---
Pt feeling better,changed meds. Pt states that when it was time for her to leave,pt felt unsteady on her feet and would have liked a wheelchair.
== END 2018-03-15 04:24 | disposition home or self-care (01) ==
PROVIDERS: Emergency Provider Emergency Medicine; PCP Internal Medicine
DX: I10 Essential (primary) hypertension (principal); R07.9 Chest pain, unspecified; R51 Headache
CPT/HCPCS: 36415; 70450; 71045; 80053; 80162; 81003; 81015; 82550; 83690; 83880; 84484; 85025; 87077; 87086; 87147; 93005; 96374; 99283; 99285; J0360

== ENCOUNTER → 2018-03-17 10:30 | Outpatient (CLI) | payer MEDICARE, OTHER, SELFPAY ==
[2018-02-21 12:32] VITALS: BMI 21.6
[2018-03-20 17:44] LABS: Total Volume 3000 mL; Urine, Metanephrine 78 mcg/24 h (90-315); Urine, Normetanephrine 216 mcg/24 h (122-676)
[2018-03-22 15:07] LABS: Total Volume: 3000 mL; Vanillymandelic Acid 24 Hr Ur 2.8 mg/24 h (< OR = 6.0)
== END ==
PROVIDERS: PCP Internal Medicine; Visit Provider Internal Medicine
DX: E78.1 Pure hyperglyceridemia (principal)
CPT/HCPCS: 83835; 84585

== ENCOUNTER → 2018-04-21 10:58 | Outpatient (CLI) | payer MEDICARE, OTHER, SELFPAY ==
[2018-02-21 12:32] VITALS: BMI 21.6
--- NOTE | 2018-04-21 | DI.CT.S_ITS ---
PROCEDURE: CT ABDOMEN WO/W CON INDICATIONS: Disorder of kidney and ureter, unspecified TECHNIQUE: Optional 5 mm thick noncontrast images acquired from the diaphragm to the iliac crests. After the administration of intravenous contrast, 5 mm thick images again acquired from the diaphragm to the iliac crests in the arterial and urographic phases. 5 mm thick coronal and sagittal reformats were then acquired. For radiation dose reduction, the following was used: automated exposure control, adjustment of mA and/or kV according to patient size. COMPARISON: [facility], CT, ABDOMEN W&WO CONTRAST, 05/04/2017, 9:53. FINDINGS: Image quality: Excellent. Lung bases: Lung bases are clear. Heart size is normal. Patient leak hemorrhage and right ventricle. Genitourinary: Previously noted 1.6 x 1.5 x 1.4 cm oval circumscribed mass in the inferior right kidney is unchanged in size and appearance from prior exam of 01/10/15, and again demonstrates thin linear internal enhancement on arterial phase imaging on axial image 41 of series 4. There is a 0.8 cm oval indistinct mass in the posterior midpole of the left kidney on axial image 25 of series 4 that is also stable to comparison exam of 01/10/15. Additional renal cysts are noted bilaterally. Subcentimeter hypoechoic foci within the kidneys bilaterally are too small to fully characterize on this exam but likely represent additional renal cysts. Other solid organs: Liver is normal in size and enhancement. Gallbladder is unremarkable. Biliary system is non dilated. Pancreas enhances normally. Spleen is normal in size and enhancement. No adrenal nodules. Peritoneum and bowel: Unenhanced bowel loops are normal in wall thickness and caliber. No free fluid or air. Nodes and vessels: There are mildly prominent mesenteric lymph nodes. Aorta and inferior vena cava are normal in caliber. Bones: There are moderate multilevel degenerative changes of the spine, worse at L3-L4 where there is near complete intervertebral disc space height loss with reactive endplate changes. Miscellaneous: Lower abdominal subcutaneous edema bilaterally. IMPRESSION: #1. 1.6 cm renal mass in the inferior pole of the right kidney is unchanged from comparison exam of 01/10/2015. Recommend continued annual multiphasic CT evaluation until at least 5 years of stability has been demonstrated to exclude a slow-growing renal cell carcinoma. #2. 0.8 cm renal mass in the posterior midpole of the left kidney is unchanged from comparison exam of 01/10/2015. Recommend continued annual multiphasic CT evaluation until at least 5 years of stability has been demonstrated to exclude a slow-growing renal cell carcinoma. #3. Mildly prominent mesenteric lymph nodes, which are nonspecific and possibly reactive. Clinical correlation suggested. Dictated by: Henrique Gudino M.D. on 04/22/2018 at 15:02 Approved by: Henrique Gudino M.D. on 04/22/2018 at 15:33
[2018-04-21 12:11] LABS: Blood Urea Nitrogen 16 mg/dL (7-17); Estimated Glomerular Filt Rate > 60.0 mL/min (>60)
== END ==
PROVIDERS: PCP Internal Medicine; Visit Provider Urology
DX: N28.9 Disorder of kidney and ureter, unspecified (principal); R59.0 Localized enlarged lymph nodes; Z87.442 Personal history of urinary calculi
CPT/HCPCS: 36415; 74170; 82565; 84520; Q9967

== ENCOUNTER → 2018-04-27 13:21 | Outpatient (CLI) | payer MEDICARE, OTHER, SELFPAY ==
[2018-02-21 12:32] VITALS: BMI 21.6
[2018-04-27 14:55] LABS: Blood Urea Nitrogen 14 mg/dL (7-17)
== END ==
PROVIDERS: Family Provider Internal Medicine; PCP Internal Medicine; Visit Provider Urology
DX: N28.9 Disorder of kidney and ureter, unspecified (principal); Z87.442 Personal history of urinary calculi
CPT/HCPCS: 36415; 84520

== ENCOUNTER → 2018-07-19 10:32 | Outpatient (CLI) | payer MEDICARE, OTHER, SELFPAY ==
[2018-02-21 12:32] VITALS: BMI 21.6
--- NOTE | 2018-07-19 | DI.MG.S_ITS ---
BILATERAL DIGITAL SCREENING MAMMOGRAM 3D/2D WITH CAD: 07/19/2018 CLINICAL: Routine screening. Comparison is made to exams dated: 07/08/2017 mammogram, 06/18/2015 mammogram, and 01/18/2014 mammogram - [facility]. There are scattered fibroglandular elements in both breasts. Current study was also evaluated with a Computer Aided Detection (CAD) system. No significant masses, calcifications, or other findings are seen in either breast. There has been no significant interval change. IMPRESSION: NEGATIVE There is no mammographic evidence of malignancy. A 1 year screening mammogram is recommended. This exam was interpreted at Station ID: [id number]. NOTE: For mammograms, a report in lay terms will be sent to the patient. Approximately 15% of breast malignancies will not be visualized mammographically. In the management of a palpable breast mass, a negative mammogram must not discourage biopsy of a clinically suspicious lesion. Electronically Signed By: Cleo moreno/lasha:07/19/2018 13:13:03 letter sent: Normal Exam ACR BI-RADS Category 1: Negative [id number]
== END ==
PROVIDERS: Family Provider Internal Medicine; PCP Internal Medicine; Visit Provider Internal Medicine
DX: Z12.31 Encounter for screening mammogram for malignant neoplasm of breast (principal)
CPT/HCPCS: 77063; 77067

== ENCOUNTER → 2018-08-10 17:33 | Outpatient (CLI) | payer MEDICARE, OTHER, SELFPAY ==
[2018-02-21 12:32] VITALS: BMI 21.6
[2018-08-10 18:03] LABS: Add Manual Diff / Slide Review NO; Basophils Absolute Auto 0 /uL (0-100); Basophils Percent Auto 0.4 % (0-2); Eosinophils Absolute Auto 500 /uL (0-450); Eosinophils Percent Auto 3.8 % (2-4); Hematocrit 34.3 % (36-46); Hemoglobin 11.4 g/dL (12.0-16.0); Lymphocytes Absolute Auto 2200 /uL (1100-4500); Lymphocytes Percent Auto 18.6 % (25-40); Mean Corpuscular HGB Conc 33.2 % (30-36); Mean Corpuscular Volume 87.3 fL (80-100); Monocytes Absolute Auto 1000 /uL (0-900); Monocytes Percent Auto 8.7 % (3-14); Neutrophils Absolute Auto 8100 /uL (1500-7000); Neutrophils Percent Auto 68.5 % (50-75); Platelet Count 299 X10^3/uL (150-400); Red Blood Cell Count 3.92 X10^6/uL (4.0-5.2); Red Cell Distribution Width 13.5 % (11.6-14.8); White Blood Cell Count 11.8 X10^3/uL (4.5-11.0)
[2018-08-10 18:54] LABS: HEMOLYSIS < 15 (0-50); Iron 140 ug/dL (37-170)
[2018-08-10 18:56] LABS: Aspartate Aminotransferase 19 IU/L (14-36); Blood Urea Nitrogen 21 mg/dL (7-17); Carbon Dioxide 24 mmol/L (22-32); Chloride 100 mmol/L (98-107); Cholesterol 124 mg/dL (140-199); Estimated Glomerular Filt Rate > 60.0 mL/min (>60); Glucose 117 mg/dL (80-110); HDL Cholesterol 40 mg/dL (40-60); HEMOLYSIS < 15 (0-50); LDL Cholesterol Calculated 23 mg/dL (<100); Potassium 4.5 mmol/L (3.4-5.1); Sodium 134 mmol/L (137-145); Triglycerides 304 mg/dL (35-150)
[2018-08-10 19:05] LABS: Percent Iron Saturation 33 % (15-50); Total Iron Binding Capacity 419 ug/dL (265-497); Transferrin 325 mg/dL (206-381)
[2018-08-10 19:26] LABS: Thyroid Stimulating Hormone 0.13 uIU/mL (0.47-4.68)
[2018-08-10 19:31] LABS: Ferritin 25.6 ng/mL (11.1-264)
== END ==
PROVIDERS: PCP Internal Medicine; Visit Provider Internal Medicine
DX: I10 Essential (primary) hypertension (principal); E78.2 Mixed hyperlipidemia; D50.0 Iron deficiency anemia secondary to blood loss (chronic); E03.9 Hypothyroidism, unspecified
CPT/HCPCS: 36415; 80048; 80061; 82728; 83540; 83550; 84443; 84450; 85025

== ENCOUNTER → 2018-09-13 13:37 | Outpatient (CLI) | payer MEDICARE, OTHER, SELFPAY ==
[2018-02-21 12:32] VITALS: BMI 21.6
--- NOTE | 2018-09-13 | DI.ECHO.S_ITS ---
[facility] +---------+ : : [address] [place] : : : : [id number] : : : : Phone: [phone]---------+ Echocardiogram Report + + :Name: EVY REBOLLEDO Study Date: 09/13/2018 Height: 64 in : :[facility] Exam Location: [facility] Weight: 124 lb : : Gender: Female BSA: 1.6 m2 : :: 1945 Age: 73 yrs BP: 140/70 mmHg: :Reason For Study: Atrial fibrillation : :Ordering Physician: Joey : :Marcos Martin Performed By: Sabrina Page : + + Interpretation Summary The left ventricle is normal in size, wall thickness, and systolic function without any focal wall motion abnormalities. The ejection fraction is estimated to be 60-65%. Diastolic function could not be accurately assessed due to atrial fibrillation. The right ventricle is normal in size and function. There is a pacemaker lead in the right ventricle. The right ventricular systolic pressure is estimated to be at least 30 mmHg based on an estimated right atrial pressure of 8 mm Hg. The left atrium is severely dilated. The right atrium is mildly dilated. There is a mobile echogenic structure that appears to be attached to the pacer wire on the atrial side of the tricuspid valve. There is mild to moderate tricuspid regurgitation. There is no other significant valvular heart disease. The aortic root is normal size. Procedure: A two-dimensional transthoracic echocardiogram with color flow and Doppler was performed. The study quality was technically adequate. Comparison is made with the echocardiogram of 09/10/2014. The heart rate ranged between 59-60 bpm during the study. Left Ventricle: The left ventricle is normal in size, wall thickness, and systolic function without any focal wall motion abnormalities. The ejection fraction is estimated to be 60-65%. Diastolic function could not be accurately assessed due to atrial fibrillation. Right Ventricle: The right ventricle is normal in size and function. There is a pacemaker lead in the right ventricle. Atria: The left atrium is severely dilated. The right atrium is mildly dilated. There is a mobile echogenic structure that appears to be attached to the pacer wire on the atrial side of the tricuspid valve. There is no Doppler evidence for an interatrial shunt. Mitral Valve: The mitral valve leaflets are slightly calcified. There is mild mitral annular calcification. There is trace mitral regurgitation. Aortic Valve: The aortic valve is trileaflet. The aortic valve opens well. The aortic valve is slightly calcified. There is trace aortic regurgitation. Tricuspid Valve: The tricuspid valve is normal in structure and function. There is mild to moderate tricuspid regurgitation. The right ventricular systolic pressure is estimated to be at least 30 mmHg based on an estimated right atrial pressure of 8 mm Hg. Pulmonic Valve: The pulmonic valve is not well visualized. There is a trace or physiologic amount of pulmonic regurgitation. There is no significant valvular heart disease. There is no other significant valvular heart disease. Great Vessels: The aortic root is normal size. The ascending aorta could not be visualized. The pulmonary artery is not well visualized, but is probably normal size. The IVC is dilated (diameter is greater than 2.1 cm) yet it collapses greater than 50% with a sniff. This suggests a right atrial pressure of 8 mm Hg. Pericardium/ Pleura There is no pericardial effusion. There is no pleural effusion. MMode/2D Measurements & Calculations LVIDd: 4.8 cm LVOT diam: 2.0 cm LVIDs: 2.9 cm Ao root diam: 3.2 cm FS: 40.6 % EPSS: 0.00 cm IVSd: 0.88 cm LVPWd: 1.0 cm LV lawler. diameter/BSA (cm/m^2): 3.0 LV sys. diameter/BSA (cm/m^2): 1.8 LA A2 area: 30.5 cm2 RA long axis: 5.3 cm LA A4 area: 26.6 cm2 RA area: 19.5 cm2 LA length (vol): 6.2 cm RA vol: 60.9 ml LA vol: 111.1 ml RA : 38.1 ml/m2 LA vol index: 69.6 ml/m2 IVC diam: 2.5 cm RVD1 (basal): 3.8 cm TAPSE: 1.9 cm Doppler Measurements & Calculations Ao V2 max: 151.8 cm/sec LVOT Max Paul: 96.8 cm/sec Ao V2 mean: 114.7 cm/sec LV V1 max P.7 mmHg Ao max P.2 mmHg LV V1 VTI: 19.7 cm Ao mean P.5 mmHg DAMON(I,D): 1.8 cm2 Ao V2 VTI: 35.0 cm DAMON(V,D): 2.1 cm2 sev ratio: 0.56 DAMON indexed to BSA (cm^2/m^2): 1.2 MV E max paul: 77.0 cm/sec TR max paul: 234.5 cm/sec MV A max paul: 96.6 cm/sec TR max P.0 mmHg MV E/A: 0.80 PA V2 max: 75.9 cm/sec Med Peak E' Paul: 6.5 cm/sec PA V2 mean: 57.0 cm/sec E/E' med: 11.8 PA mean P.4 mmHg Lat Peak E' Paul: 8.6 cm/sec PA Accel Time: 0.12 sec E/E' lat: 9.0 E/e' average: 10.4 MV dec time: 0.20 sec MV P1/2t: 58.7 msec MV P1/2t max paul: 78.4 cm/sec SV(LVOT): 64.6 ml MVA(P1/2t): 3.7 cm2 Reading Physician:02:53 PM
[2018-09-13 18:10] LABS: Add Manual Diff / Slide Review NO; Basophils Absolute Auto 0 /uL (0-100); Basophils Percent Auto 0.4 % (0-2); Eosinophils Absolute Auto 500 /uL (0-450); Eosinophils Percent Auto 5.1 % (2-4); Hematocrit 33.9 % (36-46); Lymphocytes Absolute Auto 2100 /uL (1100-4500); Lymphocytes Percent Auto 20.5 % (25-40); Mean Corpuscular HGB Conc 32.4 % (30-36); Mean Corpuscular Hemoglobin 28.7 PG (26-34); Mean Corpuscular Volume 88.7 fL (80-100); Monocytes Absolute Auto 600 /uL (0-900); Monocytes Percent Auto 5.8 % (3-14); Neutrophils Absolute Auto 6900 /uL (1500-7000); Neutrophils Percent Auto 68.2 % (50-75); Platelet Count 344 X10^3/uL (150-400); Red Blood Cell Count 3.82 X10^6/uL (4.0-5.2); Red Cell Distribution Width 15.5 % (11.6-14.8); White Blood Cell Count 10.2 X10^3/uL (4.5-11.0)
[2018-09-13 18:54] LABS: C-Reactive Protein Quant 0.7 mg/dL (<1.0)
[2018-09-13 19:42] LABS: Erythrocyte Sedimentation Rate 8 MM/HR (0-20)
== END ==
PROVIDERS: PCP Internal Medicine; Visit Provider Internal Medicine Cardiovascular Disease
DX: I33.0 Acute and subacute infective endocarditis (principal); I07.1 Rheumatic tricuspid insufficiency; I48.91 Unspecified atrial fibrillation; Z95.0 Presence of cardiac pacemaker
CPT/HCPCS: 36415; 85025; 85651; 86140; 87040; 93306

== ENCOUNTER → 2018-10-21 08:01 | Outpatient (CLI) | payer MEDICARE, OTHER, SELFPAY ==
[2018-02-21 12:32] VITALS: BMI 21.6
[2018-10-21 10:12] LABS: Thyroid Stimulating Hormone 4.25 uIU/mL (0.47-4.68)
== END ==
PROVIDERS: PCP Internal Medicine; Visit Provider Internal Medicine
DX: E03.9 Hypothyroidism, unspecified (principal)
CPT/HCPCS: 36415; 84443

== ENCOUNTER → 2018-12-07 08:09 | Outpatient (CLI) | payer MEDICARE, OTHER, SELFPAY ==
[2018-02-21 12:32] VITALS: BMI 21.6
[2018-12-07 09:47] LABS: Add Manual Diff / Slide Review NO; Basophils Absolute Auto 0 /uL (0-100); Basophils Percent Auto 0.4 % (0-2); Eosinophils Absolute Auto 500 /uL (0-450); Eosinophils Percent Auto 4.7 % (2-4); Hematocrit 32.9 % (36-46); Hemoglobin 10.8 g/dL (12.0-16.0); Lymphocytes Absolute Auto 1600 /uL (1100-4500); Lymphocytes Percent Auto 16.3 % (25-40); Mean Corpuscular HGB Conc 32.7 % (30-36); Mean Corpuscular Volume 79.4 fL (80-100); Monocytes Absolute Auto 1200 /uL (0-900); Monocytes Percent Auto 11.9 % (3-14); Neutrophils Absolute Auto 6500 /uL (1500-7000); Neutrophils Percent Auto 66.7 % (50-75); Platelet Count 261 X10^3/uL (150-400); Red Blood Cell Count 4.14 X10^6/uL (4.0-5.2); Red Cell Distribution Width 16.7 % (11.6-14.8); White Blood Cell Count 9.8 X10^3/uL (4.5-11.0)
[2018-12-07 10:45] LABS: Ferritin 7.7 ng/mL (11.1-264)
== END ==
PROVIDERS: Family Provider Internal Medicine Cardiovascular Disease; PCP Internal Medicine; Visit Provider Internal Medicine
DX: D50.0 Iron deficiency anemia secondary to blood loss (chronic) (principal)
CPT/HCPCS: 36415; 82728; 85025

== ENCOUNTER → 2018-12-29 14:15 | Oncology outpatient (ONC) | payer MEDICARE, OTHER, SELFPAY ==
[2018-02-21 12:32] VITALS: BMI 21.6
[2018-12-19] MEDS: IRON SUCROSE 200 MG in SODIUM CHLORIDE 0.9% 100 ML 220 ML IV (15:06)
[2018-12-19 15:35] VITALS: BP 119/60; PULSE 72; RESP 15; TEMP 37; O2SAT 99
[2018-12-21] MEDS: IRON SUCROSE 200 MG in SODIUM CHLORIDE 0.9% 100 ML 220 ML IV (15:00)
[2018-12-21 15:07] VITALS: BP 130/55; PULSE 60; RESP 18; TEMP 37.1; O2SAT 96
[2018-12-26 14:30] VITALS: BP 153/67; PULSE 80; RESP 18; TEMP 36.5; O2SAT 98
[2018-12-26] MEDS: IRON SUCROSE 200 MG in SODIUM CHLORIDE 0.9% 100 ML 220 ML IV (15:19)
[2018-12-27] MEDS: IRON SUCROSE 200 MG in SODIUM CHLORIDE 0.9% 100 ML 220 ML IV (14:45)
[2018-12-27 15:27] VITALS: BP 143/62; PULSE 62; RESP 14; TEMP 36.7; O2SAT 96
[2018-12-29 15:11] VITALS: BP 165/63; PULSE 60; RESP 16; TEMP 36.8; O2SAT 99
[2018-12-29] MEDS: IRON SUCROSE 200 MG in SODIUM CHLORIDE 0.9% 100 ML 220 ML IV (15:12)
== END ==
PROVIDERS: Family Provider Internal Medicine Cardiovascular Disease; PCP Internal Medicine; Visit Provider Internal Medicine
DX: D50.0 Iron deficiency anemia secondary to blood loss (chronic) (principal)
CPT/HCPCS: 96365; J1756

== ENCOUNTER → 2019-01-16 12:33 | Outpatient (CLI) | payer MEDICARE, OTHER, SELFPAY ==
[2018-02-21 12:32] VITALS: BMI 21.6
[2019-01-16 13:42] LABS: Add Manual Diff / Slide Review NO; Basophils Absolute Auto 0 /uL (0-100); Basophils Percent Auto 0.2 % (0-2); Eosinophils Absolute Auto 400 /uL (0-450); Eosinophils Percent Auto 4.5 % (2-4); Hematocrit 41.4 % (36-46); Hemoglobin 13.9 g/dL (12.0-16.0); Lymphocytes Absolute Auto 1700 /uL (1100-4500); Lymphocytes Percent Auto 18.8 % (25-40); Mean Corpuscular HGB Conc 33.4 % (30-36); Mean Corpuscular Hemoglobin 26.3 PG (26-34); Mean Corpuscular Volume 78.5 fL (80-100); Monocytes Absolute Auto 1000 /uL (0-900); Monocytes Percent Auto 11.6 % (3-14); Neutrophils Absolute Auto 5800 /uL (1500-7000); Neutrophils Percent Auto 64.9 % (50-75); Platelet Count 229 X10^3/uL (150-400); Red Blood Cell Count 5.28 X10^6/uL (4.0-5.2); Red Cell Distribution Width 21.7 % (11.6-14.8)
[2019-01-16 14:11] LABS: Poikilocytosis 1+
== END ==
PROVIDERS: Family Provider Internal Medicine Cardiovascular Disease; PCP Internal Medicine; Visit Provider Internal Medicine
DX: D50.0 Iron deficiency anemia secondary to blood loss (chronic) (principal)
CPT/HCPCS: 36415; 82728; 85025

== ENCOUNTER → 2019-04-19 08:38 | Outpatient (CLI) | payer MEDICARE, OTHER, SELFPAY ==
[2018-02-21 12:32] VITALS: BMI 21.6
[2019-04-19 09:43] LABS: Digoxin 0.8 ng/mL (0.8-2.0)
== END ==
PROVIDERS: PCP Internal Medicine; Visit Provider Internal Medicine Cardiovascular Disease
DX: Z51.81 Encounter for therapeutic drug level monitoring (principal); Z79.899 Other long term (current) drug therapy
CPT/HCPCS: 36415; 80162

== ENCOUNTER → 2019-05-17 08:57 | Outpatient (CLI) | payer MEDICARE, OTHER, SELFPAY ==
[2018-02-21 12:32] VITALS: BMI 21.6
--- NOTE | 2019-05-17 | DI.CT.S_ITS ---
PROCEDURE: CT KIDNEY URETER BLADDER (KUB) INDICATIONS: CYST OF KIDNEY TECHNIQUE: Noncontrast 5 mm thick sections acquired from the diaphragms to the symphysis. 5 mm thick coronal and sagittal reformats were then performed. For radiation dose reduction, the following was used: automated exposure control, adjustment of mA and/or kV according to patient size. COMPARISON: [facility], CT, CT ABDOMEN WO/W CON, 04/21/2018, 12:10. FINDINGS: Image quality: Limited by absence of intravenous contrast.. Lung bases: Lung bases are clear. Heart size is normal. Urinary system: Both kidneys are normal in size. No kidney stones. No hydronephrosis or perinephric fat stranding. Both ureters appear non-dilated throughout their expected courses. Bladder wall thickness is normal; no calcified bladder stones. The prior CT scanning from 04/21/18 that allowed visualization of a 1.6 cm renal mass at the lower pole of the right kidney, seen only by CT scanning with contrast. The current study does not identify an abnormality in that area, performed by noncontrast scanning only. The prior 04/21/18 CT also had identified 2 hyperdense foci involving the cortex of the left kidney, one at the middle third measuring only approximately 8 mm at the capsular border, and this structure and can be very faintly visualized and has not changed. A second hyperdense ovoid structure was present abutting the lower third posterolateral medullary perinephric, also present currently without blade changer time. Other solid organs: Liver is normal in size. Gallbladder appears normal. Pancreas is normal in contours. Spleen is normal in size. No adrenal nodules. Peritoneum and bowel: Unenhanced bowel loops demonstrate normal wall thickness and caliber. No free fluid or air. Nodes and vessels: No retroperitoneal or mesenteric adenopathy by size criteria. Aorta and inferior vena cava are normal in caliber. Abdominal wall: No ventral hernias. Pelvis: No free pelvic fluid. No inguinal hernias or adenopathy. Bones: No suspicious bony lesions. No vertebral body compression fractures. IMPRESSION: No urinary tract stone found. The study is somewhat limited by utilization of noncontrast CT scanning only. For example, the lower third right renal cortical masslike structure seen 04/21/18 was only visualized on the contrast enhanced study. 2 small slightly hyperdense structures at the cortex of the left kidney are faintly visualized on the noncontrast scanning from the current study, and do not appear to have changed from the prior study Dictated by: Pa Fuller M.D. on 05/17/2019 at 9:59 Approved by: Pa Fuller M.D. on 05/17/2019 at 10:08
== END ==
PROVIDERS: PCP Internal Medicine; Visit Provider Urology
DX: N28.1 Cyst of kidney, acquired (principal); N28.9 Disorder of kidney and ureter, unspecified
CPT/HCPCS: 74176

== ENCOUNTER 2019-05-24 08:08 | Day surgery (SDC) | payer MEDICARE, OTHER, SELFPAY ==
[2018-02-21 12:32] VITALS: BMI 21.6
[2019-05-24] VITALS (11 sets, daily range): BP systolic 113–178; BP diastolic 50–78; PULSE 59–65; RESP 10–16; TEMP 36.4–37; O2SAT 94–100; BMI 19.8
[2019-05-24] MEDS: SODIUM CHLORIDE 0.9% 1,000 ML 21 ML IV (10:09)
--- NOTE | 2019-05-24 10:32 | PM.HP.1 ---
History of Present Illness History of Present Illness Date Patient Seen: 05/24/19 Time Patient Seen: 10:32 Chief complaint: [id number] Narrative: History of adenomatous colon Patient History Family & Social History Social History: household members spouse,children Tobacco & Substance use: Smoking Status Never smoker alcohol intake current alcohol intake frequency 0-2 drinks per day Substance Use Type does not use Meds Home Medications and Allergies Home Medications Medication Instructions Recorded Confirmed Type Cardizem LA 120 mg PO QDAY #0 03/08/12 05/24/19 History ascorbic acid (vitamin C) [Vitamin 1,000 mg PO DAILY #0 03/08/12 05/24/19 History C] lisinopril 20 mg PO BID #0 03/08/12 05/24/19 History multivitamin 1 cap PO DAILY #0 03/08/12 05/24/19 History simvastatin 10 mg PO QPM #0 03/08/12 05/24/19 History insulin lispro [Humalog U-100 10 - 20 unit SQ TID #0 01/24/13 05/24/19 History Insulin] calcium carbonate-vitamin D3 1 tab PO DAILY 02/08/18 05/24/19 History [Calcium 600 + D(3)] gabapentin 600 mg PO BEDTIME 02/08/18 05/24/19 History insulin glargine [Lantus U-100 15 unit SUBCUT BEDTIME 02/08/18 05/24/19 History Insulin] loratadine 10 mg PO QPM PRN 02/08/18 05/24/19 History magnesium chloride 64 mg PO QPM 02/09/18 05/24/19 History digoxin [Digox] 1 tab PO DAILY 02/21/18 05/24/19 History levothyroxine 1 tab PO DAILY 02/21/18 05/24/19 History cyanocobalamin (vitamin B-12) 1,000 mcg IM QMONTH 02/24/18 05/24/19 History carvedilol 6.25 mg PO BID 05/24/19 05/24/19 History Allergies Allergy/AdvReac Type Severity Reaction Status Date / Time Penicillins Allergy Mild Verified 05/24/19 08:38 hydrochlorothiazide AdvReac Verified 05/24/19 08:38 Exam Vital Signs (past 8 hours): - 05/24/19 08:55 Temperature 97.5 F L Pulse Rate 60 Respiratory Rate 16 Blood Pressure 178/78 H Pulse Oximetry 99 Oxygen Delivery Method Room Air Narrative Exam Narrative: Oropharynx free of lesions Chest clear to auscultation percussion Cardiac exam reveals no S3 or murmur Assessment & Plan Assessment & Plan narrative: History of adenomatous colon polyps need for follow-up colonoscopy. Risks, benefits, alternatives have been explained. Patient has been off Eliquis for 3 days. She has also has her pacemaker cleared and will require magnet if cautery is used. Further recommendations will follow.
--- NOTE | 2019-05-24 10:34 | PM.OP.ENDO ---
Operative Date/Time/Diagnoses Date of procedure: 05/24/19 Time of procedure: 10:57 Pre-op diagnosis: See indication Procedure & Clinicians Study performed: Colonoscopy Same procedure as scheduled: Yes Indications: History of adenomatous Surgeon: Charley Waters Procedure Notes Procedure in detail: After informed consent was obtained the patient was placed in left lateral decubitus position. The video colonoscope was introduced the rectum slowly advanced to terminal ileum. On slow withdrawal mucosa was carefully examined. The scope was removed. The patient tolerated procedure well. Blood loss none Complications none Sedation Total sedation time 20 minutes Versed 6 mg fentanyl 100 mg IV titration Findings 1. Sigmoid diverticulosis with some tortuosity 2. Otherwise negative colonoscopy to cecum 3. Normal terminal ileum Georgai gardner restart her Eliquis tonight. This should be her last colonoscopy given her comorbid these.
[2019-05-24] MEDS: MIDAZOLAM 5 MG/5 ML VIAL IV (10:58)
[2019-05-24] MEDS: fentaNYL 250 MCG/5 ML INJ IV (10:59)
--- NOTE | 2019-05-24 13:35 | SUR.PHASEII ---
late entry: pt stated she was ready to go home, pt left unit in stable condition with daughter to waiting area to wait for clamp truck driver to take her home..
== END 2019-05-24 13:00 | disposition home or self-care (01) ==
PROVIDERS: PCP Internal Medicine; Visit Provider Internal Medicine Gastroenterology
PROC: 0DJD8ZZ Inspection of Lower Intestinal Tract, Via Natural or Artificial Opening Endoscopic (ICD-10-PCS; CPT 45378; principal; 2019-05-24 10:30)
DX: Z12.11 Encounter for screening for malignant neoplasm of colon (principal); Z86.010 Personal history of colon polyps; I10 Essential (primary) hypertension; E11.9 Type 2 diabetes mellitus without complications; I48.91 Unspecified atrial fibrillation; Z95.0 Presence of cardiac pacemaker; E03.9 Hypothyroidism, unspecified; E78.00 Pure hypercholesterolemia, unspecified; D50.9 Iron deficiency anemia, unspecified; K57.30 Diverticulosis of large intestine without perforation or abscess without bleeding
CPT/HCPCS: G0105; J2250; J3010

== ENCOUNTER → 2019-06-15 14:38 | Outpatient (CLI) | payer MEDICARE, OTHER, SELFPAY ==
[2018-02-21 12:32] VITALS: BMI 21.6
[2019-06-15 15:39] LABS: Add Manual Diff / Slide Review NO; Basophils Absolute Auto 0 /uL (0-100); Basophils Percent Auto 0.2 % (0-2); Eosinophils Absolute Auto 400 /uL (0-450); Eosinophils Percent Auto 3.7 % (2-4); Hematocrit 40.5 % (36-46); Hemoglobin 13.8 g/dL (12.0-16.0); Lymphocytes Absolute Auto 2000 /uL (1100-4500); Lymphocytes Percent Auto 16.9 % (25-40); Mean Corpuscular HGB Conc 34.1 % (30-36); Mean Corpuscular Volume 85.3 fL (80-100); Monocytes Absolute Auto 1100 /uL (0-900); Monocytes Percent Auto 9.5 % (3-14); Neutrophils Absolute Auto 8300 /uL (1500-7000); Neutrophils Percent Auto 69.7 % (50-75); Platelet Count 253 X10^3/uL (150-400); Red Blood Cell Count 4.75 X10^6/uL (4.0-5.2); Red Cell Distribution Width 12.4 % (11.6-14.8); White Blood Cell Count 11.9 X10^3/uL (4.5-11.0)
[2019-06-15 16:05] LABS: Alanine Aminotransferase 15 IU/L (<35); Albumin 3.9 g/dL (3.5-5.0); Albumin Globulin Ratio 1.3 (1.0-2.8); Alkaline Phosphatase 112 U/L (38-126); Aspartate Aminotransferase 21 IU/L (14-36); BUN Creatinine Ratio 32.5 (6-22); Bilirubin Total 0.2 mg/dL (0.2-1.3); Blood Urea Nitrogen 13 mg/dL (7-17); Calcium 8.7 mg/dL (8.4-10.2); Carbon Dioxide 25 mmol/L (22-32); Chloride 95 mmol/L (98-107); Cholesterol 138 mg/dL (140-199); Estimated Glomerular Filt Rate > 60.0 mL/min (>60); Globulin 2.9 g/dL (1.7-4.1); Glucose 189 mg/dL (80-110); HDL Cholesterol 34 mg/dL (40-60); HEMOLYSIS < 15 (0-50); LDL Cholesterol Calculated 25 mg/dL (<100); Potassium 4.6 mmol/L (3.4-5.1); Sodium 130 mmol/L (137-145); Total Protein 6.8 g/dL (6.3-8.2); Triglycerides 397 mg/dL (35-150)
[2019-06-15 16:37] LABS: Digoxin 0.7 ng/mL (0.8-2.0); HEMOLYSIS < 15 (0-50); Iron 76 ug/dL (37-170)
[2019-06-15 16:40] LABS: Ferritin 36.6 ng/mL (11.1-264)
[2019-06-15 16:45] LABS: Percent Iron Saturation 23 % (15-50); Total Iron Binding Capacity 335 ug/dL (265-497); Transferrin 268 mg/dL (206-381)
[2019-06-15 17:07] LABS: TSH w/ Reflex to FT4 0.28 uIU/mL (0.47-4.68)
[2019-06-15 17:34] LABS: Free T4, Direct Thyroxine 1.54 ng/dL (0.78-2.19)
== END ==
PROVIDERS: PCP Internal Medicine; Referring Provider Internal Medicine; Visit Provider Internal Medicine
DX: E03.9 Hypothyroidism, unspecified (principal); I48.91 Unspecified atrial fibrillation; E78.2 Mixed hyperlipidemia; D50.0 Iron deficiency anemia secondary to blood loss (chronic)
CPT/HCPCS: 36415; 80053; 80061; 80162; 82728; 83540; 83550; 84439; 84443; 85025

== ENCOUNTER 2019-09-25 14:34 | Emergency (ER) | payer MEDICARE, OTHER, SELFPAY ==
[2018-02-21 12:32] VITALS: BMI 21.6
[2019-09-25 14:40] VITALS: BP 230/98; PULSE 65; RESP 16; TEMP 36.6; O2SAT 100; BMI 20.5
--- NOTE | 2019-09-25 14:43 | DI.RAD.S_ITS ---
PROCEDURE: XR RIBS LT MIN 3V W CXR1V INDICATIONS: L rib pain post fall TECHNIQUE: 2 views of the left ribs were acquired, along with a single view chest. COMPARISON: None. FINDINGS: Surgical changes and devices: Pacemaker. Bones and chest wall: Left lateral 10th and 11th rib fractures. No suspicious bony lesions. Overlying soft tissues appear unremarkable. Lungs and pleura: No pleural effusions or pneumothorax. Lungs appear clear. Mediastinum: Mediastinal contours appear normal. Heart size is normal. IMPRESSION: 1. Lateral left 10th and 11th rib fractures. 2. No evidence acute pulmonary process. Dictated by: Wu Pablo M.D. on 09/25/2019 at 14:20 Approved by: Wu Pablo M.D. on 09/25/2019 at 14:21
--- NOTE | 2019-09-25 14:53 | ED_ITS ---
HPI - Fall <NALLELY VinsonP - Last Filed: 09/25/19 21:42> General Chief Complaint: Fall Stated Complaint: fell on stairs/ hit lt side ribs Time Seen by Provider: 09/25/19 14:35 History of Present Illness HPI Narrative: 74yo female with a history of diabetes, pacemaker, currently on Eliquis therapy, presents emergency department complaining of left rib pain that started today after fall. She states while vacuuming while wearing socks. She slipped on the 3rd step and landed on her left side. Patient states she felt significant sharp pain to left side of her ribs, sudden onset of nausea, and difficulty taking a deep breath due to pain. She was able to get up on her own without any help. She denies hitting her head or LOC. However, when further questioned she states It happened so fast I am not 100% sure I did not hit my head. She states the pain was so bad after I fell I thought I might pass out for few minutes but I didn't. Patient states she then called daughter to bring her to the emergency department. He denies any other injuries such as hip pain, back pain, neck pain, vision changes, high fevers, dizziness or illness prior to fall, cough, chest pain, or any other concerns. Modified trauma called post rib xr results due to rib fracture. Related Data Home Medications Medication Instructions Recorded Confirmed Cardizem LA 120 mg PO QDAY #0 03/08/12 05/24/19 ascorbic acid (vitamin C) [Vitamin 1,000 mg PO DAILY #0 03/08/12 05/24/19 C] lisinopril 20 mg PO BID #0 03/08/12 05/24/19 multivitamin 1 cap PO DAILY #0 03/08/12 05/24/19 simvastatin 10 mg PO QPM #0 03/08/12 05/24/19 insulin lispro [Humalog U-100 10 - 20 unit SQ TID #0 01/24/13 05/24/19 Insulin] calcium carbonate-vitamin D3 1 tab PO DAILY 02/08/18 05/24/19 [Calcium 600 + D(3)] gabapentin 600 mg PO BEDTIME 02/08/18 05/24/19 insulin glargine [Lantus U-100 15 unit SUBCUT BEDTIME 02/08/18 05/24/19 Insulin] loratadine 10 mg PO QPM PRN 02/08/18 05/24/19 magnesium chloride 64 mg PO QPM 02/09/18 05/24/19 digoxin [Digox] 1 tab PO DAILY 02/21/18 05/24/19 levothyroxine 1 tab PO DAILY 02/21/18 05/24/19 cyanocobalamin (vitamin B-12) 1,000 mcg IM QMONTH 02/24/18 05/24/19 carvedilol 6.25 mg PO BID 05/24/19 05/24/19 Previous Rx's Medication Instructions Recorded tramadol 50 mg PO BID PRN #14 tab 09/25/19 Allergies Allergy/AdvReac Type Severity Reaction Status Date / Time Penicillins Allergy Mild Verified 05/24/19 08:38 hydrochlorothiazide AdvReac Verified 05/24/19 08:38 Review of Systems <KAYLI Vinson - Last Filed: 09/25/19 21:42> Review of Systems Narrative: REVIEW OF SYSTEMS: GENERAL: Denies fever or chills. HENT: Denies headache or lesions. EYES: No double vision or vision loss. NECK: No neck pain. CARDIOVASCULAR: No chest pain or LOC. RESPIRATORY: No shortness of breath or cough. GASTROINTESTINAL: No nausea, vomiting, diarrhea, or constipation. No abd pain. GENITOURINARY: No flank pain. MUSCULOSKELETAL: Complains of left rib pain, see HPI. INTEGUMENTARY: No rash, lesions, or pruritus. NEURO: No numbness, tingling. Patient History <KAYLI Vinson - Last Filed: 09/25/19 21:42> Medical History Afib (Acute) Allergic rhinitis (Acute) B12 deficiency (Acute) Back injury (Acute ~1997) Carotid artery stenosis (Acute) Cervical spine degeneration (Acute) Crohn's disease (Chronic 2013) Depression (Acute) Diabetes (Acute) Diabetic neuropathy (Acute) Duodenal diverticulum (Acute) Dyspnea on exertion (Acute) History of bronchitis (Acute) History of cardioversion (Acute ~2002) History of chest pain (Acute) History of GI bleed (Acute) History of nephrolithiasis (Acute) Hypertension (Chronic) Hypothyroidism (Chronic) Iron deficiency anemia (Acute) Kidney lesion (Acute) Osteopenia (Acute) Pacemaker (Acute) Palpitations (Acute) Paroxysmal SVT (supraventricular tachycardia) (Acute) Pericarditis (Acute) Pulmonary nodule (Acute) Pure hypercholesterolemia (Acute) Reactive airway disease (Acute) Urinary frequency (Acute) Vasculitis (Acute) Surgical History History of cardiac radiofrequency ablation (Acute) History of cataract removal with insertion of prosthetic lens (Resolved 2013) History of lithotripsy (Acute) History of repair of pyloric stenosis (Acute) History of tonsillectomy (Resolved 1969) Pyloric stenosis in adult (Resolved ~1965) Status post appendectomy (Resolved 1959) Status post colonoscopy (Resolved 2014) Social History household members: spouse and children Smoking Status: Never smoker alcohol intake: current Smoking Status: Never smoker alcohol intake frequency: 0-2 drinks per day Substance Use Type: does not use Exam <KAYLI Vinson - Last Filed: 09/25/19 21:42> Initial Vital Signs Initial Vital Signs: Vital Signs Temperature 97.9 F 09/25/19 14:40 Pulse Rate 65 09/25/19 14:40 Respiratory Rate 16 09/25/19 14:40 Blood Pressure 230/98 H 09/25/19 14:40 Pulse Oximetry 100 09/25/19 14:40 PHYSICAL EXAMINATION: GENERAL: Well groomed, alert, and cooperative. Answers questions promptly and appropriately. Vital signs noted. HENT: Normocephalic. Ear canals patent. Oral mucosa is pink and moist. EYES: PERRLA, EOMIs, conjunctiva pink, sclera white, no periorbital swelling. NECK: Full ROM, no midline or spinal tenderness. CARDIOVASCULAR: S1 and S2 sounds normal. Regular rate and rhythm, no murmurs, clicks, or bruits. RESPIRATORY: Normal respiratory rate, trachea midline, airway patent. No stridor, nasal flaring or accessory muscle use. Lungs are clear in all abbott without wheeze, rhonchi, or crackles. MUSCULOSKELETAL: Tenderness to left lower ribs with palpation. No tenderness to shoulders, elbows, wrists, hips, knees, or ankles bilaterally. Normal gait and coordination. Equal tone and mass bilaterally. Equal strength bilaterally to upper and lower extremities. No spinal tenderness. EXTREMITIES: CMS intact. Moves all extremities. SKIN: Warm, dry, soft, appropriate color for ethnicity. No lesions, rashes, or wounds to visualized areas. NEURO: Alert and Oriented X 3. GCS: 15. Good coordination. No ataxia, or sensory deficits, or cognitive issues. Cranial Nerves: II: Visual abbott grossly intact. III & IV & : EOMIs V: Able to open and close jaw. VII: Facial movements symetrical. Able to close eyelids tightly. VIII: Hearing grossly intact, adequate balance. X: Uvula pronation intact. XI: Patient is able to shrug shoulders. PSYCH: Appropriate affect and mood. <Goyo Harris DO - Last Filed: 09/26/19 18:28> Initial Vital Signs Initial Vital Signs: Vital Signs Temperature 97.9 F 09/25/19 14:40 Pulse Rate 65 09/25/19 14:40 Respiratory Rate 16 09/25/19 14:40 Blood Pressure 230/98 H 09/25/19 14:40 Pulse Oximetry 100 09/25/19 14:40 Scores <KAYLI Vinson - Last Filed: 09/25/19 21:42> Nexus Score for C-Spine Focal Neurologic deficit present: No Midline spinal tenderness present: No Altered level of conciousness present: No Intoxication present: No Distracting Injury Present: No Nexus Criteria for C-spine: 0 Course <KAYLI Vinson - Last Filed: 09/25/19 21:42> Course Course Narrative: 1534: Patient updated about fractures. Offered pain medication, requested only Tylenol at this time. 1555: RT at bedside to provide patient with incentive spirometer. Orders Ordered: Discontinued Medications Acetaminophen (Tylenol) 650 mg PO NOW ONE Stop: 09/25/19 15:34 Last Admin: 09/25/19 15:37 Dose: 650 mg Documented by: BRANDI Vital Signs Vital signs: Vital Signs - 8 hr 09/25/19 14:40 09/25/19 15:30 09/25/19 15:42 Temperature 97.9 F Pulse Rate 65 60 60 Respiratory Rate 16 22 21 Blood Pressure 230/98 H Blood Pressure [Right Arm] 189/90 H 189/80 H Pulse Oximetry 100 98 99 09/25/19 16:15 09/25/19 16:28 Temperature Pulse Rate 65 Respiratory Rate 16 16 Blood Pressure 196/83 H Blood Pressure [Right Arm] Pulse Oximetry 98 97 <Goyo Harris DO - Last Filed: 09/26/19 18:28> Orders Ordered: Discontinued Medications Acetaminophen (Tylenol) 650 mg PO NOW ONE Stop: 09/25/19 15:34 Last Admin: 09/25/19 15:37 Dose: 650 mg Documented by: BRANDI Vital Signs Vital signs: Vital Signs - 8 hr 09/25/19 14:40 09/25/19 15:30 09/25/19 15:42 Temperature 97.9 F Pulse Rate 65 60 60 Respiratory Rate 16 22 21 Blood Pressure 230/98 H Blood Pressure [Right Arm] 189/90 H 189/80 H Pulse Oximetry 100 98 99 09/25/19 16:15 09/25/19 16:28 Temperature Pulse Rate 65 Respiratory Rate 16 16 Blood Pressure 196/83 H Blood Pressure [Right Arm] Pulse Oximetry 98 97 MDM - Fall <KAYLI Vinson - Last Filed: 09/25/19 21:42> Medical Records Attestation: I reviewed the patient's medical records. Lab Data Attestation: I reviewed the patient's lab results. Imaging Data CT scan - head: Radiologist's Impression: [place] [address] CT Scan Report Signed Patient: Georgia Alford KMR#: [id number] : 5Acct:[id number] Age/Sex: 74 / FDate of Service: 09/25/19 Loc: ED Accession Number: [id number] Procedure: CT head/brain wo con Ordering Provider: Vania Copeland PROCEDURE: CT HEAD/BRAIN WO CON INDICATIONS: Fall, on Eliquis TECHNIQUE: Noncontrast 4.5 mm thick angled axial sections acquired from the foramen magnum to the vertex, with coronal and sagittal reformats. For radiation dose reduction, the following was used: automated exposure control, adjustment of mA and/or kV according to patient size. COMPARISON: [facility], CT, CT HEAD/BRAIN WO CON, 03/15/2018, 0:57. FINDINGS: Image quality: Excellent. CSF spaces: Basal cisterns are patent. No extra-axial fluid collections. The ventricles are symmetric in size and shape. Brain: No intracranial bleeds or masses. There is cerebral volume loss for age, with resultant ventricular and sulcal prominence. There are periventricular and deep white matter chronic small vessel ischemic changes. There is intracranial internal carotid artery atherosclerosis. Skull and face: Calvarium and visualized facial bones appear intact, without suspicious lesions. Sinuses: Visualized sinuses and mastoids are clear. IMPRESSION: Negative for acute stroke, hemorrhage, or mass. No evidence of significant intracranial sequelae of acute trauma. Dictated by: Wu Pablo M.D. on 09/25/2019 at 14:35 Approved by: Wu Pablo M.D. on 09/25/2019 at 14:37 Chest x-ray: Radiologist's Impression: [place] [address] XRay Report Signed Patient: Georgia Alford KMR#: [id number] : 5Acct:[id number] Age/Sex: 74 / FDate of Service: 09/25/19 Loc: ED Accession Number: [id number] Procedure: XR ribs LT min 3V w CXR1V Ordering Provider: Vania Copeland PROCEDURE: XR RIBS LT MIN 3V W CXR1V INDICATIONS: L rib pain post fall TECHNIQUE: 2 views of the left ribs were acquired, along with a single view chest. COMPARISON: None. FINDINGS: Surgical changes and devices: Pacemaker. Bones and chest wall: Left lateral 10th and 11th rib fractures. No suspicious bony lesions. Overlying soft tissues appear unremarkable. Lungs and pleura: No pleural effusions or pneumothorax. Lungs appear clear. Mediastinum: Mediastinal contours appear normal. Heart size is normal. IMPRESSION: 1. Lateral left 10th and 11th rib fractures. 2. No evidence acute pulmonary process. Dictated by: Wu Pablo M.D. on 09/25/2019 at 14:20 Approved by: Wu Pablo M.D. on 09/25/2019 at 14:[address]: Radiologist's Impression: [address] [address] [address] Scan Report Signed Patient: Georgia Alford KMR#: [id number] : 5Acct:[id number] Age/Sex: 74 / FDate of Service: 09/25/19 Loc: ED Accession Number: [id number] Procedure: CT chest wo con Ordering Provider: Vania Copeland PROCEDURE: CT CHEST WO CON INDICATIONS: Rib fractures, on Eliquis TECHNIQUE: Noncontrast 5 mm thick sections acquired from the pulmonary apices to the posterior costophrenic angles. 1 mm lung window, 5 mm thick coronal and sagittal and 7 mm axial MIP reformats were then acquired. For radiation dose reduction, the following was used: automated exposure control, adjustment of mA and/or kV according to patient size. COMPARISON: [facility], CR, XR RIBS LT MIN 3V W CXR1V, 09/25/2019, 14:36. FINDINGS: Image quality: Excellent. Lungs and pleura: No acute air space opacities. 3 mm pulmonary nodule, left upper lobe, image 143/3. 3 mm pulmonary nodule, left upper lobe, image 108/3. No pleural effusions or pneumothorax. Central and peripheral airways are patent and normal in caliber. Mediastinum: Heart size is normal. No pericardial effusion. Pacemaker No mediastinal adenopathy by size criteria. Thoracic aorta and central pulmonary arteries are normal in size. Esophagus is normal in caliber. No hiatal hernia. Bones and chest wall: No suspicious bony lesions. Posterior lateral left 11th rib fracture. Left 10th rib fracture seen on plain films is not identifiable on CT. No other acute bony fractures. No vertebral body compression fractures. No axillary or supraclavicular adenopathy by size criteria. Thyroid gland is grossly unremarkable. Abdomen: Visualized upper abdominal solid organs and bowel loops appear normal in the absence of contrast. No evidence of acute splenic injury. Entire spleen is included in the imaging. IMPRESSION: 1. Left posterior lateral 11th rib fracture. 2. No evidence of pneumothorax or splenic injury. 3. There are 2 incidental 3 mm pulmonary nodules. Please refer to the chart below for followup recommendations. Fleischner Society criteria for SOLID lung nodule followup. Nodule size (mm)Low-risk patientHigh-risk patient<6 (single or multiple)No routine followup.Optional CT at 12 months. 6-8 (single or multiple)CT at 6-12 months, then optional CT at 18-24 mo.CT at 6-12 months, then CT at 18-24 months. >8 (single)CT at 3 months, PET-CT, or biopsy. Same as for low-risk pts. >8 (multiple)CT at 3-6 months, then optional CT at 18-24 mo.CT at 3-6 months, then CT at 18-24 months. Fleischner Society criteria for SUB-SOLID lung nodule followup. Solitary pure ground-glass nodules<6 mm (ground glass or part solid)No followup needed. 6 mm or larger (ground glass)CT at 6-12 months to confirm persistence, then CT every 2 years until 5 years.6 mm or larger (part solid)CT at 3-6 months to confirm persistence, then annual CT until 5 years if unchanged and solid component remains <6 mm. Multiple sub-solid nodules<6 mmCT at 3-6 months, then CT consider at 2 & 4 years for high risk patients. [address] at 3-6 months. Subsequent management based on most suspicious lesions. Recommendations do not apply to lung cancer screening, pa tients with immunosuppression, or patients with known primary cancer. Dictated by: Wu Pablo M.D. on 09/25/2019 at 14:37 Approved by: Wu Pablo M.D. on 09/25/2019 at 14:44 ECG Data Interpretation: Atrial paced rhythm, no T-wave inversion, no ST elevation, no ectopy, no acute changes. EKG also viewed by DR. Harris per protocol. MDM Narrative Medical decision making narrative: 74-year-old female presents emergency departm ent for left rib pain after a fall. After discussion with patient about risks and benefits, patient was not 100% sure that she did not hit her head so CT was performed as patient was on blood thinners. Fall sounds clearly mechanical without any symptoms of cardiac etiology prior to fall. Suspect patient's pain is most likely caused by rib fracture as seen on CT and x-ray. CT was ordered post x-ray due to initial thought of multiple fractures to rule out any organ injury or lung contusion especially given patient is currently on a blood thinner. No evidence of bleeding organ injury found on imaging. No cranial fractures or bleeding dizziness CT, patient's neuro exam is intact without focal deficit. Patient's pain was controlled with Tylenol. We had an extensive discussion about pain medication, patient states she is only able to take tramadol as the other medications are too sedating for her. At length discussion with patient about importance of using the incentive spirometer to prevent pneumonia. Given image findings and patient able to obtain adequate pain control with Tylenol, patient is a candidate for discharge. Discussed follow-up was important, patient agreed to plan of care verbalized understanding. Discharge Plan Departure Patient Disposition: Home Clinical Impression: Fracture, rib Qualifiers: Encounter type: initial encounter Rib fracture type: single rib Fracture type: closed Laterality: left Qualified Code(s): S22.32XA - Fracture of one rib, left side, initial encounter for closed fracture Discharge Date/Time: 09/25/19 16:29 Instructions: How to Use an Incentive Spirometer, DI for Rib Fracture, How to Prevent Falls Activity Restrictions/Additional Instructions: Thank you for entrusting me with your care today. As discussed, you have a rib fracture to your #11 rib. There is no bleeding, lung injury, organ injury, or brain injury noted on your images today. There was an incidental finding of two 3mm pulmonary nodules. We have given you an incentive spirometer, please take 10 breaths using this device 10 times a day to prevent pneumonia. A given you a prescription for tramadol as you mention this medication works well for you. Take this only if needed. Otherwise you may use Tylenol for pain. You have been prescribed a narcotic medication, this medication can make you drowsy. Do not drive while using this medication or perform activities that require mental alertness. These medications can also make you constipated, please use [id number] docusate sodium as needed for constipation. Return emergency department for any new or worsening symptoms such as severe pain, shortness of breath, high fevers, chest pain, frequent falls, or any other concerns. Prescriptions: New tramadol 50 mg tablet 50 mg PO BID PRN (Reason: pain) Qty: 14 RF: 0 No Action ascorbic acid (vitamin C) [Vitamin C] 1,000 mg Tablet Extended Release 1,000 mg PO DAILY Qty: 0 RF: 0 multivitamin Capsule 1 cap PO DAILY Qty: 0 RF: 0 simvastatin 10 MG tablet 10 mg PO QPM Qty: 0 RF: 0 lisinopril 40 MG tablet 20 mg PO BID Qty: 0 RF: 0 Cardizem LA 120 MG tablet extended release 24 hr 120 mg PO QDAY Qty: 0 RF: 0 insulin lispro [Humalog U-100 Insulin] 100 UNIT/1 ML solution 10 - 20 unit SQ TID Qty: 0 RF: 0 gabapentin 600 mg Tablet 600 mg PO BEDTIME RF: 0 Lantus U-100 Insulin 100 unit/mL Solution 15 unit SUBCUT BEDTIME RF: 0 Calcium 600 + D(3) 600 mg calcium- 200 unit Capsule 1 tab PO DAILY RF: 0 loratadine 10 mg Capsule 10 mg PO QPM PRN (Reason: seasonal allergies) RF: 0 magnesium chloride 64 mg Tablet,Delayed Release (Dr/Ec) 64 mg PO QPM RF: 0 levothyroxine 100 mcg tablet 1 tab PO DAILY RF: 0 digoxin [Digox] 125 mcg tablet 1 tab PO DAILY RF: 0 cyanocobalamin (vitamin B-12) 1,000 mcg/mL Solution 1,000 mcg IM QMONTH RF: 0 carvedilol 6.25 mg Tablet 6.25 mg PO BID RF: 0 Referrals: Jaspal Sheldon MD [Primary Care Provider] - <Goyo Harris DO - Last Filed: 09/26/19 18:28> Cosign ED Attending Cosignature Attestation: I was immediately available in the department for consultation. This documentation has been reviewed and I agree with assessment and plan. Supervised by Goyo Harris DO
--- NOTE | 2019-09-25 15:05 | DI.CT.S_ITS ---
PROCEDURE: CT CHEST WO CON INDICATIONS: Rib fractures, on Eliquis TECHNIQUE: Noncontrast 5 mm thick sections acquired from the pulmonary apices to the posterior costophrenic angles. 1 mm lung window, 5 mm thick coronal and sagittal and 7 mm axial MIP reformats were then acquired. For radiation dose reduction, the following was used: automated exposure control, adjustment of mA and/or kV according to patient size. COMPARISON: [facility], CR, XR RIBS LT MIN 3V W CXR1V, 09/25/2019, 14:36. FINDINGS: Image quality: Excellent. Lungs and pleura: No acute air space opacities. 3 mm pulmonary nodule, left upper lobe, image 143/3. 3 mm pulmonary nodule, left upper lobe, image 108/3. No pleural effusions or pneumothorax. Central and peripheral airways are patent and normal in caliber. Mediastinum: Heart size is normal. No pericardial effusion. Pacemaker No mediastinal adenopathy by size criteria. Thoracic aorta and central pulmonary arteries are normal in size. Esophagus is normal in caliber. No hiatal hernia. Bones and chest wall: No suspicious bony lesions. Posterior lateral left 11th rib fracture. Left 10th rib fracture seen on plain films is not identifiable on CT. No other acute bony fractures. No vertebral body compression fractures. No axillary or supraclavicular adenopathy by size criteria. Thyroid gland is grossly unremarkable. Abdomen: Visualized upper abdominal solid organs and bowel loops appear normal in the absence of contrast. No evidence of acute splenic injury. Entire spleen is included in the imaging. IMPRESSION: 1. Left posterior lateral 11th rib fracture. 2. No evidence of pneumothorax or splenic injury. 3. There are 2 incidental 3 mm pulmonary nodules. Please refer to the chart below for followup recommendations. Fleischner Society criteria for SOLID lung nodule followup. Nodule size (mm)Low-risk patientHigh-risk patient<6 (single or multiple)No routine followup.Optional CT at 12 months. 6-8 (single or multiple)CT at 6-12 months, then optional CT at 18-24 mo.CT at 6-12 months, then CT at 18-24 months. >8 (single)CT at 3 months, PET-CT, or biopsy. Same as for low-risk pts. >8 (multiple)CT at 3-6 months, then optional CT at 18-24 mo.CT at 3-6 months, then CT at 18-24 months. Fleischner Society criteria for SUB-SOLID lung nodule followup. Solitary pure ground-glass nodules<6 mm (ground glass or part solid)No followup needed. 6 mm or larger (ground glass)CT at 6-12 months to confirm persistence, then CT every 2 years until 5 years.6 mm or larger (part solid)CT at 3-6 months to confirm persistence, then annual CT until 5 years if unchanged and solid component remains <6 mm. Multiple sub-solid nodules<6 mmCT at 3-6 months, then CT consider at 2 & 4 years for high risk patients. [address] at 3-6 months. Subsequent management based on most suspicious lesions. Recommendations do not apply to lung cancer screening, patients with immunosuppression, or patients with known primary cancer. Dictated by: Wu Pablo M.D. on 09/25/2019 at 14:37 Approved by: Wu Pablo M.D. on 09/25/2019 at 14:44
--- NOTE | 2019-09-25 15:05 | DI.CT.S_ITS ---
PROCEDURE: CT HEAD/BRAIN WO CON INDICATIONS: Fall, on Eliquis TECHNIQUE: Noncontrast 4.5 mm thick angled axial sections acquired from the foramen magnum to the vertex, with coronal and sagittal reformats. For radiation dose reduction, the following was used: automated exposure control, adjustment of mA and/or kV according to patient size. COMPARISON: [facility], CT, CT HEAD/BRAIN WO CON, 03/15/2018, 0:57. FINDINGS: Image quality: Excellent. CSF spaces: Basal cisterns are patent. No extra-axial fluid collections. The ventricles are symmetric in size and shape. Brain: No intracranial bleeds or masses. There is cerebral volume loss for age, with resultant ventricular and sulcal prominence. There are periventricular and deep white matter chronic small vessel ischemic changes. There is intracranial internal carotid artery atherosclerosis. Skull and face: Calvarium and visualized facial bones appear intact, without suspicious lesions. Sinuses: Visualized sinuses and mastoids are clear. IMPRESSION: Negative for acute stroke, hemorrhage, or mass. No evidence of significant intracranial sequelae of acute trauma. Dictated by: Wu Pablo M.D. on 09/25/2019 at 14:35 Approved by: Wu Pablo M.D. on 09/25/2019 at 14:37
[2019-09-25 15:30] VITALS: BP 189/90; PULSE 60; RESP 22; O2SAT 98
[2019-09-25] MEDS: ACETAMINOPHEN 325 MG TABLET 650 MG PO (15:37)
[2019-09-25 15:42] VITALS: BP 189/80; PULSE 60; RESP 21; O2SAT 99
[2019-09-25 16:15] VITALS: RESP 16; O2SAT 98
[2019-09-25 16:28] VITALS: BP 196/83; PULSE 65; RESP 16; O2SAT 97
== END 2019-09-25 16:29 | disposition home or self-care (01) ==
PROVIDERS: Emergency Provider Nurse Practitioner; PCP Internal Medicine
DX: S22.32XA Fracture of one rib, left side, initial encounter for closed fracture (principal); W10.9XXA Fall (on) (from) unspecified stairs and steps, initial encounter; E11.9 Type 2 diabetes mellitus without complications; Z95.0 Presence of cardiac pacemaker; Z79.01 Long term (current) use of anticoagulants; Z71.1 Person with feared health complaint in whom no diagnosis is made
CPT/HCPCS: 70450; 71101; 71250; 93005; 93010; 99284

== ENCOUNTER → 2019-10-16 10:13 | Outpatient (CLI) | payer MEDICARE, OTHER, SELFPAY ==
[2018-02-21 12:32] VITALS: BMI 21.6
[2019-10-16 15:51] LABS: Add Manual Diff / Slide Review NO; Basophils Absolute Auto 0 /uL (0-100); Basophils Percent Auto 0.3 % (0-2); Eosinophils Absolute Auto 500 /uL (0-450); Eosinophils Percent Auto 4.7 % (2-4); Hematocrit 41.5 % (36-46); Hemoglobin 14.2 g/dL (12.0-16.0); Lymphocytes Absolute Auto 2000 /uL (1100-4500); Lymphocytes Percent Auto 17.6 % (25-40); Mean Corpuscular HGB Conc 34.2 % (30-36); Mean Corpuscular Hemoglobin 28.7 PG (26-34); Monocytes Absolute Auto 800 /uL (0-900); Neutrophils Absolute Auto 8000 /uL (1500-7000); Neutrophils Percent Auto 70.4 % (50-75); Platelet Count 270 X10^3/uL (150-400); Red Blood Cell Count 4.94 X10^6/uL (4.0-5.2); White Blood Cell Count 11.3 X10^3/uL (4.5-11.0)
[2019-10-16 16:12] LABS: HEMOLYSIS < 15 (0-50); Iron 104 ug/dL (37-170)
[2019-10-16 16:15] LABS: Digoxin 0.7 ng/mL (0.8-2.0)
[2019-10-16 16:21] LABS: Alanine Aminotransferase 19 IU/L (<35); Albumin Globulin Ratio 1.7 (1.0-2.8); Alkaline Phosphatase 80 U/L (38-126); Aspartate Aminotransferase 28 IU/L (14-36); BUN Creatinine Ratio 36.2 (6-22); Bilirubin Total 0.3 mg/dL (0.2-1.3); Blood Urea Nitrogen 17 mg/dL (7-17); Calcium 8.9 mg/dL (8.4-10.2); Carbon Dioxide 25 mmol/L (22-32); Chloride 101 mmol/L (98-107); Estimated Glomerular Filt Rate > 60.0 mL/min (>60); Globulin 2.4 g/dL (1.7-4.1); Glucose 166 mg/dL (80-110); HEMOLYSIS < 15 (0-50); Potassium 4.4 mmol/L (3.4-5.1); Sodium 133 mmol/L (137-145); Total Protein 6.4 g/dL (6.3-8.2)
[2019-10-16 16:22] LABS: Percent Iron Saturation 26 % (15-50); Total Iron Binding Capacity 393 ug/dL (265-497); Transferrin 305 mg/dL (206-381)
[2019-10-16 16:48] LABS: Ferritin 19 ng/mL (11-264)
== END ==
PROVIDERS: PCP Internal Medicine; Referring Provider Internal Medicine Cardiovascular Disease; Visit Provider Internal Medicine
DX: Z51.81 Encounter for therapeutic drug level monitoring (principal); D50.0 Iron deficiency anemia secondary to blood loss (chronic); Z79.899 Other long term (current) drug therapy
CPT/HCPCS: 36415; 80053; 80162; 82728; 83540; 83550; 85025

== ENCOUNTER → 2019-11-07 09:58 | Outpatient (CLI) | payer MEDICARE, OTHER, SELFPAY ==
[2018-02-21 12:32] VITALS: BMI 21.6
[2019-11-07 10:30] LABS: Estimated Glomerular Filt Rate > 60.0 mL/min (>60)
[2019-11-07 11:10] LABS: TSH w/ Reflex to FT4 0.32 uIU/mL (0.47-4.68)
[2019-11-07 11:38] LABS: Folate > 20.0 ng/mL (2.76-20.0)
[2019-11-07 11:44] LABS: Free T4, Direct Thyroxine 1.97 ng/dL (0.78-2.19)
[2019-11-07 15:30] LABS: Vitamin B12 251 pg/mL (239-931)
== END ==
PROVIDERS: PCP Internal Medicine; Referring Provider Urology; Visit Provider Urology
DX: I47.1 Supraventricular tachycardia (principal); I48.0 Paroxysmal atrial fibrillation; R53.83 Other fatigue; E03.9 Hypothyroidism, unspecified; N28.9 Disorder of kidney and ureter, unspecified; Z87.442 Personal history of urinary calculi; N28.1 Cyst of kidney, acquired
CPT/HCPCS: 36415; 82565; 82607; 82746; 84439; 84443

== ENCOUNTER → 2019-11-09 10:32 | Outpatient (CLI) | payer MEDICARE, OTHER, SELFPAY ==
[2018-02-21 12:32] VITALS: BMI 21.6
--- NOTE | 2019-11-09 | DI.CT.S_ITS ---
PROCEDURE: CT ABDOMEN WO/W CON INDICATIONS: Disorder of kidney and ureter, unspecified TECHNIQUE: Optional 5 mm thick noncontrast images acquired from the diaphragm to the iliac crests. After the administration of intravenous contrast, 5 mm thick images again acquired from the diaphragm to the iliac crests in the arterial and urographic phases. 5 mm thick coronal and sagittal reformats were then acquired. For radiation dose reduction, the following was used: automated exposure control, adjustment of mA and/or kV according to patient size. COMPARISON: [facility], CT, ABDOMEN W&WO CONTRAST, 05/05/2016, 8:38. [facility], CT, ABDOMEN W&WO CONTRAST, 11/06/2015, 13:38. [facility], CT, ABDOMEN/PELVIS WITH CONTRAST, 04/26/2015, 22:32. [facility], CT, CT ABDOMEN WO/W CON, 04/21/2018, 12:10. [facility], CT, ABDOMEN W&WO CONTRAST, 05/04/2017, 9:53. FINDINGS: Image quality: Excellent. Lung bases: Lung bases are clear. Heart size is normal. Genitourinary: At the lower pole of the right kidney a 1.6 cm rounded masslike structure has been previously present and followed over time, now documented as having not enlarged over nearly 5 years, with reference to the prior abdominal CT scanning performed 04/26/15. Additionally, a smaller left posterolateral 8 mm nodule at the left mid kidney cortex, subcapsular, has not changed from that prior study. No enhancing or malignant appearing mass is identified. No adjacent adenopathy is found. Other solid organs: Liver is normal in size and enhancement. Gallbladder appears normal. Biliary system is non dilated. Pancreas enhances normally. Spleen is normal in size and enhancement. No adrenal nodules. Peritoneum and bowel: Unenhanced bowel loops are normal in wall thickness and caliber. No free fluid or air. Nodes and vessels: No retroperitoneal or mesenteric adenopathy by size criteria. Aorta and inferior vena cava are normal in caliber. Bones: No suspicious bony lesions. No vertebral body compression fractures. Miscellaneous: No ventral hernias. IMPRESSION: A sequence of CT scans from April 2015 to the current study has shown stable appearance of a right lower pole and a smaller left mid pole rounded nodule. At the right lower pole this structure measures 1.6 cm and at the cortical margin of the left kidney the nodule has measured 8 mm. The absence of change control specialist 4.5 years indicates high likelihood of benign etiology. Dictated by: Pa Fuller M.D. on 11/09/2019 at 12:04 Approved by: Pa Fuller M.D. on 11/09/2019 at 12:20
== END ==
PROVIDERS: PCP Internal Medicine; Referring Provider Urology; Visit Provider Urology
DX: N28.9 Disorder of kidney and ureter, unspecified (principal)
CPT/HCPCS: 74170; Q9967

== ENCOUNTER → 2020-03-20 19:00 | Outpatient (ROUT) | payer MEDICARE, OTHER, SELFPAY ==
[2018-02-21 12:32] VITALS: BMI 21.6
[2020-03-20 19:06] LABS: Add Manual Diff / Slide Review NO; Basophils Absolute Auto 0 /uL (0-100); Basophils Percent Auto 0.4 % (0-2); Eosinophils Absolute Auto 300 /uL (0-450); Eosinophils Percent Auto 2.8 % (2-4); Hematocrit 37.6 % (36-46); Hemoglobin 12.7 g/dL (12.0-16.0); Lymphocytes Absolute Auto 2000 /uL (1100-4500); Lymphocytes Percent Auto 21.3 % (25-40); Mean Corpuscular HGB Conc 33.8 % (30-36); Mean Corpuscular Hemoglobin 27.7 PG (26-34); Mean Corpuscular Volume 81.8 fL (80-100); Monocytes Absolute Auto 700 /uL (0-900); Monocytes Percent Auto 7.7 % (3-14); Neutrophils Absolute Auto 6500 /uL (1500-7000); Neutrophils Percent Auto 67.8 % (50-75); Platelet Count 240 X10^3/uL (150-400); Red Cell Distribution Width 13.1 % (11.6-14.8); White Blood Cell Count 9.6 X10^3/uL (4.5-11.0)
[2020-03-20 19:14] LABS: Aspartate Aminotransferase 24 IU/L (14-36); BUN Creatinine Ratio 30.4 (6-22); Blood Urea Nitrogen 17 mg/dL (7-17); Calcium 8.9 mg/dL (8.4-10.2); Carbon Dioxide 25 mmol/L (22-32); Chloride 98 mmol/L (98-107); Cholesterol 101 mg/dL (140-199); Estimated Glomerular Filt Rate > 60.0 mL/min (>60); Glucose 213 mg/dL (80-110); HDL Cholesterol 41 mg/dL (40-60); HEMOLYSIS < 15 (0-50); LDL Cholesterol Calculated 15 mg/dL (<100); Potassium 4.2 mmol/L (3.4-5.1); Sodium 131 mmol/L (137-145); Triglycerides 224 mg/dL (35-150)
[2020-03-20 19:44] LABS: TSH w/ Reflex to FT4 1.27 uIU/mL (0.47-4.68)
== END ==
PROVIDERS: PCP Internal Medicine; Visit Provider Internal Medicine
DX: D50.9 Iron deficiency anemia, unspecified (principal); I10 Essential (primary) hypertension; E78.2 Mixed hyperlipidemia; E03.9 Hypothyroidism, unspecified
CPT/HCPCS: 80048; 80061; 84443; 84450; 85025

== ENCOUNTER 2020-05-03 09:19 | Emergency (ER) | payer MEDICARE, OTHER, SELFPAY ==
[2018-02-21 12:32] VITALS: BMI 21.6
[2020-05-03] VITALS (17 sets, daily range): BP systolic 133–204; BP diastolic 74–111; PULSE 59–80; RESP 16–24; TEMP 36.6; O2SAT 96–99; BMI 20.7
--- NOTE | 2020-05-03 09:30 | DI.RAD.S_ITS ---
PROCEDURE: XR CHEST 1V INDICATIONS: chest pain TECHNIQUE: One view of the chest was acquired. COMPARISON: [facility], CT, CT CHEST WO CON, 09/25/2019, 15:05. [facility], CR, XR CHEST 2V, 11/18/2017, 16:17. [facility], CR, XR CHEST 1V, 02/22/2018, 15:47. [facility], CR, XR CHEST 1V, 03/15/2018, 1:13. FINDINGS: Surgical changes and devices: A pacer device is seen. The leads are seen in stable positions. Lungs and pleura: Lungs are clear. No pleural effusions or pneumothorax. Mediastinum: Mediastinal contours appear normal. Heart size is normal. Atherosclerotic calcification of the aortic arch is noted. Bones and chest wall: No suspicious bony lesions. Age-appropriate bony degenerative changes are seen. Overlying soft tissues appear unremarkable. IMPRESSION: Clear lungs. Postoperative and degenerative changes are seen. Dictated by: Rishi Leung M.D. on 05/03/2020 at 8:57 Approved by: Rishi Leung M.D. on 05/03/2020 at 8:58
--- NOTE | 2020-05-03 09:36 | ED_ITS ---
HPI - Chest Pain General Chief Complaint: Chest Pain Stated Complaint: heart burn all night,heart skipping alot,tired Time Seen by Provider: 05/03/20 09:20 Source: patient and family Mode of arrival: Family Vehicle Limitations: no limitations History of Present Illness HPI narrative: 74-year-old female nonsmoker with history of hypertension, hyponatremia, diabetes, tachy-kimo syndrome presents with her daughter and the chief complaint of a burning anterior chest pain that started yesterday while packing up her home for a move. She states it is burning in nature and seems to go into her neck. She denies any provocoation or palliation. She denies associated symptoms such as dizziness, weakness, shortness of breath. She's had no fever or chills. She denies N/V/D. She is admittedly stressed about an upcoming move. At its worst the pain is 4/10 and currently 2/10 MD complaint: chest pain Onset (ago): hour(s) Duration: constant Pain location: substernal Severity: moderate Severity scale (1-10): 4 Quality: other Pain radiation: neck Relieving factors: nothing Exacerbating factors: nothing Related Data Home Medications Medication Instructions Recorded Confirmed Cardizem LA 120 mg PO QDAY #0 03/08/12 05/24/19 ascorbic acid (vitamin C) [Vitamin 1,000 mg PO DAILY #0 03/08/12 05/24/19 C] lisinopril 20 mg PO BID #0 03/08/12 05/24/19 multivitamin 1 cap PO DAILY #0 03/08/12 05/24/19 simvastatin 10 mg PO QPM #0 03/08/12 05/24/19 insulin lispro [Humalog U-100 10 - 20 unit SQ TID #0 01/24/13 05/24/19 Insulin] calcium carbonate-vitamin D3 1 tab PO DAILY 02/08/18 05/24/19 [Calcium 600 + D(3)] gabapentin 600 mg PO BEDTIME 02/08/18 05/24/19 insulin glargine [Lantus U-100 15 unit SUBCUT BEDTIME 02/08/18 05/24/19 Insulin] loratadine 10 mg PO QPM PRN 02/08/18 05/24/19 magnesium chloride 64 mg PO QPM 02/09/18 05/24/19 digoxin [Digox] 1 tab PO DAILY 02/21/18 05/24/19 levothyroxine 1 tab PO DAILY 02/21/18 05/24/19 cyanocobalamin (vitamin B-12) 1,000 mcg IM QMONTH 02/24/18 05/24/19 carvedilol 6.25 mg PO BID 05/24/19 05/24/19 Previous Rx's Medication Instructions Recorded tramadol 50 mg PO BID PRN #14 tab 09/25/19 Allergies Allergy/AdvReac Type Severity Reaction Status Date / Time Penicillins Allergy Mild Verified 05/03/20 09:34 hydrochlorothiazide AdvReac Verified 05/03/20 09:34 Review of Systems Constitutional Constitutional: Denies chills, Denies fatigue, Denies fever(s), Denies frequent falls, Denies lethargy and Denies weakness Eyes Eyes: Denies change in vision, Denies eye discharge, Denies irritation and Den ies loss of vision ENT Ears, Nose, Mouth, and Throat: Denies change in voice, Denies dizziness, Denies neck pain, Denies sore throat and Denies throat swelling Cardiovascular Cardiovascular: Reports chest pain, Reports irregular heart rhythm, Denies lightheadedness, Reports palpitations, Denies dyspnea, Denies dyspnea on exe rtion and Denies orthopnea Respiratory Respiratory: Denies cough, Denies dyspnea, Denies dyspnea on exertion and Denies wheezing Gastrointestinal Gastrointestinal: Denies abdominal pain, Denies change in bowel habits, Denies diarrhea, Denies nausea and Denies vomiting Musculoskeletal Musculoskeletal: Denies neck pain and Denies numbness Integumentary/Breasts Skin/Breast: Denies pruritus, Denies erythema, Denies rash and Denies wounds Neurologic Neurologic: Denies behavioral changes, Denies confusion, Denies dizziness, Denies frequent falls, Denies loss of vision, Denies numbness and Denies weakne ss Psychiatric Psychiatric: Denies anxiety, Denies behavioral changes, Denies confusion, Denies depression, Denies homicidal ideation and Denies suicidal ideation Endocrine Endocrine: Denies fatigue, Denies flushing and Reports palpitations Hematologic/Lymphatic Hematologic/Lymphatic: Denies easy bruising Allergic/Immunologic Allergic/Immunologic: Denies urticaria, Denies throat swelling and Denies wheezing Patient History Medical History (Updated 01/01/21 @ 13:40 by Goyo Harris DO) Afib Allergic rhinitis B12 deficiency Back injury (~1997) Carotid artery stenosis Cervical spine degeneration Crohn's disease (2013) Depression Diabetes Diabetic neuropathy Duodenal diverticulum Dyspnea on exertion History of bronchitis History of cardioversion (~2002) History of chest pain History of GI bleed History of nephrolithiasis Hypertension Hypothyroidism Iron deficiency anemia Kidney lesion Osteopenia Pacemaker Palpitations Paroxysmal SVT (supraventricular tachycardia) Pericarditis Pulmonary nodule Pure hypercholesterolemia Reactive airway disease Urinary frequency Vasculitis Surgical History History of cardiac radiofrequency ablation History of cataract removal with insertion of prosthetic lens (2013) History of lithotripsy History of repair of pyloric stenosis History of tonsillectomy (1969) Pyloric stenosis in adult (~1964) Status post appendectomy (1959) Status post colonoscopy (2014) Social History household members: spouse and children Smoking Status: Never smoker alcohol intake: current Smoking Status: Never smoker alcohol intake frequency: 0-2 drinks per day Alcohol type: hard liquor Substance Use Type: does not use Exam Narrative Exam Narrative: GENERAL 74 year old patient appears stated age. Well-nourished, well-developed patient, in mild distress. HEAD: Atraumatic. Normocephalic. EYES: Pupils equal round and reactive. Extraocular motions intact. No scleral icterus. No injection or drainage. ENT: Nose without bleeding, purulent drainage. Throat without erythema, tonsillar hypertrophy or exudate. Airway patent. NECK: Trachea midline. Non tender CARDIOVASCULAR: Regular rate and rhythm without murmurs, gallops, or rubs. Pain is NOT reproducible RESPIRATORY: Clear to auscultation. Breath sounds equal bilaterally. No wheezes, rales, or rhonchi. GASTROINTESTINAL: Abdomen soft, non-tender, nondistended. EXTREMITIES: No edema or joint tenderness. BACK: Nontender without deformity or crepitance. No flank tenderness. NEURO: AOx3. SKIN: No rash or erythema of visible areas Initial Vital Signs Initial Vital Signs: Vital Signs Pulse Rate 68 05/03/20 09:29 Pulse Oximetry 98 05/03/20 09:29 Course Orders Ordered: ED Orders 05/03/20 09:30 XR chest 1V Stat 05/03/20 09:35 EKG-12 Lead Stat 05/03/20 09:50 Complete Blood Count AUTO DIFF Stat Comprehensive Metabolic Panel Stat Lipase Stat Partial Thromboplastin Time Stat Prothrombin Time INR Stat Troponin & CK Cardiac Panel Stat 05/03/20 10:02 D Dimer Stat 05/03/20 12:20 Troponin I Stat 05/03/20 13:05 COVID19 Stat Nitroglycerin (Nitroglycerin 0.4 Mg Sl Tab) 0.4 mg SL [id number] PRN PRN Reason: Chest Pain Last Admin: 05/03/20 12:55 Dose: 0.4 mg Documented by: ALANIS Discontinued Medications Al Hydrox/Mg Hydrox/Simethicone 20 ml/ Lidocaine HCl 15 ml 0 ml PO NOW ONE Stop: 05/03/20 10:25 Last Admin: 05/03/20 11:11 Dose: 35 ml Documented by: ALANIS Pantoprazole Sodium (Pantoprazole 40 Mg Vial) 40 mg IV NOW ONE Stop: 05/03/20 10:25 Last Admin: 05/03/20 11:12 Dose: 40 mg Documented by: ALANIS Consultations Consultation #1: Discussed with Cardiology at [facility]. Though a lack of ischemic findings on EKG, and had series of negative troponins is reassuring the presence of ongoing pain with radiation is bothersome. His recommendation is to bring into the hospital, do provocative testing and an echocardiogram. Consultation #2: call to hospitalist here at [place]. No ability to do stress testing until at least wednesday Consultation #3: call to hospitalist at [facility], happy to accept Vital Signs Vital signs: Vital Signs - 8 hr 05/03/20 09:29 05/03/20 09:30 05/03/20 10:00 Temperature 97.8 F Pulse Rate 68 69 60 Respiratory Rate 18 24 Blood Pressure 190/91 H Pulse Oximetry 98 98 97 05/03/20 10:01 05/03/20 10:30 05/03/20 11:00 Temperature Pulse Rate 60 60 60 Respiratory Rate 17 21 16 Blood Pressure 183/86 H Pulse Oximetry 97 98 97 05/03/20 11:30 05/03/20 12:06 05/03/20 12:19 Temperature Pulse Rate 60 67 60 Respiratory Rate 17 19 Blood Pressure 194/111 H Pulse Oximetry 99 97 98 05/03/20 12:30 05/03/20 12:55 05/03/20 13:00 Temperature Pulse Rate 60 59 L 80 Respiratory Rate 17 21 Blood Pressure 185/91 H 185/91 H 133/74 Pulse Oximetry 97 96 05/03/20 13:30 Temperature Pulse Rate 62 Respiratory Rate 17 Blood Pressure 176/80 H Pulse Oximetry 96 MDM - Chest Pain Lab Data Result diagrams: 05/03/20 09:50 05/03/20 09:50 Labs: Lab Results 05/03/20 05/03/20 05/03/20 Range/Units 09:50 09:50 09:50 WBC 8.9 (4.5-11.0) X10^3/uL RBC 4.96 (4.0-5.2) X10^6/uL Hgb 13.1 (12.0-16.0) g/dL Hct 40.0 (36-46) % MCV 80.6 (80-100) fL MCH 26.4 (26-34) PG MCHC 32.7 (30-36) % RDW 13.4 (11.6-14.8) % Plt Count 241 (150-400) X10^3/uL Neut % (Auto) 65.1 (50-75) % Lymph % (Auto) 20.3 L (25-40) % Falls % (Auto) 9.6 (3-14) % Eos % (Auto) 4.5 H (2-4) % Baso % (Auto) 0.5 (0-2) % Neut # (Auto) 5800 (8766-1096) /uL Lymph # (Auto) 1800 (5391-0969) /uL Falls # (Auto) 800 (0-900) /uL Eos # (Auto) 400 (0-450) /uL Baso # (Auto) 0 (0-100) /uL PT 13.3 H (10.1-12.7) SECONDS INR 1.2 (0.9-1.3) APTT 34 (26.4-36.2) SECONDS D-Dimer (<230) ng/mL Sodium 133 L (137-145) mmol/L Potassium 4.1 (3.4-5.1) mmol/L Chloride 100 (98-107) mmol/L Carbon Dioxide 30 (22-32) mmol/L BUN 10 (7-17) mg/dL Creatinine 0.42 L (0.52-1.04) mg/dL Estimated GFR > 60.0 (>60) mL/min BUN/Creatinine Ratio 23.8 H (6-22) Glucose 165 H (80-110) mg/dL Calcium 8.7 (8.4-10.2) mg/dL Total Bilirubin 0.1 L (0.2-1.3) mg/dL AST 27 (14-36) IU/L ALT 22 (<35) IU/L Alkaline Phosphatase 90 (38-126) U/L Total Creatine Kinase 39 (30-135) U/L CK-MB (CK-2) TNP CK-MB (CK-2) Rel Index TNP Troponin I < 0.012 (0.01-0.034) ng/mL Total Protein 6.4 (6.3-8.2) g/dL Albumin 3.8 (3.5-5.0) g/dL Globulin 2.6 (1.7-4.1) g/dL Albumin/Globulin Ratio 1.5 (1.0-2.8) Lipase 68 (23-300) U/L SARS-CoV-2 (PCR) (Negative) 05/03/20 05/03/20 05/03/20 Range/Units 10:02 12:20 13:05 WBC (4.5-11.0) X10^3/uL RBC (4.0-5.2) X10^6/uL Hgb (12.0-16.0) g/dL Hct (36-46) % MCV (80-100) fL MCH (26-34) PG MCHC (30-36) % RDW (11.6-14.8) % Plt Count (150-400) X10^3/uL Neut % (Auto) (50-75) % Lymph % (Auto) (25-40) % Falls % (Auto) (3-14) % Eos % (Auto) (2-4) % Baso % (Auto) (0-2) % Neut # (Auto) (6447-3469) /uL Lymph # (Auto) (3950-2886) /uL Falls # (Auto) (0-900) /uL Eos # (Auto) (0-450) /uL Baso # (Auto) (0-100) /uL PT (10.1-12.7) SECONDS INR (0.9-1.3) APTT (26.4-36.2) SECONDS D-Dimer < 200 (<230) ng/mL Sodium (137-145) mmol/L Potassium (3.4-5.1) mmol/L Chloride (98-107) mmol/L Carbon Dioxide (22-32) mmol/L BUN (7-17) mg/dL Creatinine (0.52-1.04) mg/dL Estimated GFR (>60) mL/min BUN/Creatinine Ratio (6-22) Glucose (80-110) mg/dL Calcium (8.4-10.2) mg/dL Total Bilirubin (0.2-1.3) mg/dL AST (14-36) IU/L ALT (<35) IU/L Alkaline Phosphatase (38-126) U/L Total Creatine Kinase (30-135) U/L CK-MB (CK-2) CK-MB (CK-2) Rel Index Troponin I < 0.012 (0.01-0.034) ng/mL Total Protein (6.3-8.2) g/dL Albumin (3.5-5.0) g/dL Globulin (1.7-4.1) g/dL Albumin/Globulin Ratio (1.0-2.8) Lipase (23-300) U/L SARS-CoV-2 (PCR) Negative (Negative) Imaging Data Chest x-ray: Radiologist's Impression: [address] [id number] ReportSigned Patient: Georgia Alford KMR#: [id number]: 5Acct:[id number]/Sex: 74 / FDate of Service: 05/03/20Loc: EDAccession Number: [id number] Procedure: XR chest 1V Ordering Provider: Goyo Harris D.O. PROCEDURE: XR CHEST 1V INDICATIONS: chest pain TECHNIQUE: One view of the chest was acquired. COMPARISON: [facility], CT, CT CHEST WO CON, 09/25/2019, 15:05. [facility], CR, XR CHEST 2V, 11/18/2017, 16:17. [facility], CR, XR CHEST 1V, 02/22/2018, 15:47. [facility], CR, XR CHEST 1V, 03/15/2018, 1:13. FINDINGS: Surgical changes and devices: A pacer device is seen. The leads are seen in stable positions. Lungs and pleura: Lungs are clear. No pleural effusions or pneumothorax. Mediastinum: Mediastinal contours appear normal. Heart size is normal. Atherosclerotic calcification of the aortic arch is noted. Bones and chest wall: No suspicious bony lesions. Age-appropriate bony degenerative changes are seen. Overlying soft tissues appear unremarkable. IMPRESSION: Clear lungs. Postoperative and degenerative changes are seen. Dictated by: Rishi Leung M.D. on 05/03/2020 at 8:57 Approved by: Rishi Leung M.D. on 05/03/2020 at 8:58 Critical Care Time Critical Care Time Critical Care Time: Yes Total Critical Care Time: 30 Attestation: The high probability of a clinically significant, sudden or life threatening deterioration of the [CV] system(s) required my full and direct attention, intervention and personal management. The aggregate critical care time was [30] minutes. This time is in addition to time spent performing reported procedures b ut includes the following: [x] Data Review and interpretation [x] Patient assessment and monitoring of vital signs [x] Documentation [x] Medication orders and management Discharge Plan Departure Patient Disposition: [facility] Clinical Impression: Chest pain Prescriptions: No Action ascorbic acid (vitamin C) [Vitamin C] 1,000 mg Tablet Extended Release 1,000 mg PO DAILY Qty: 0 RF: 0 multivitamin Capsule 1 cap PO DAILY Qty: 0 RF: 0 simvastatin 10 MG tablet 10 mg PO QPM Qty: 0 RF: 0 lisinopril 40 MG tablet 20 mg PO BID Qty: 0 RF: 0 Cardizem LA 120 MG tablet extended release 24 hr 120 mg PO QDAY Qty: 0 RF: 0 insulin lispro [Humalog U-100 Insulin] 100 UNIT/1 ML solution 10 - 20 unit SQ TID Qty: 0 RF: 0 gabapentin 600 mg Tablet 600 mg PO BEDTIME RF: 0 Lantus U-100 Insulin 100 unit/mL Solution 15 unit SUBCUT BEDTIME RF: 0 Calcium 600 + D(3) 600 mg calcium- 200 unit Capsule 1 tab PO DAILY RF: 0 loratadine 10 mg Capsule 10 mg PO QPM PRN (Reason: seasonal allergies) RF: 0 magnesium chloride 64 mg Tablet,Delayed Release (Dr/Ec) 64 mg PO QPM RF: 0 levothyroxine 100 mcg tablet 1 tab PO DAILY RF: 0 digoxin [Digox] 125 mcg tablet 1 tab PO DAILY RF: 0 cyanocobalamin (vitamin B-12) 1,000 mcg/mL Solution 1,000 mcg IM QMONTH RF: 0 carvedilol 6.25 mg Tablet 6.25 mg PO BID RF: 0 tramadol 50 mg tablet 50 mg PO BID PRN (Reason: pain) Qty: 14 RF: 0 Referrals: Jaspal Sheldon MD [Primary Care Provider] -
[2020-05-03 10:10] LABS: Add Manual Diff / Slide Review NO; Basophils Absolute Auto 0 /uL (0-100); Basophils Percent Auto 0.5 % (0-2); Eosinophils Absolute Auto 400 /uL (0-450); Eosinophils Percent Auto 4.5 % (2-4); Hemoglobin 13.1 g/dL (12.0-16.0); Lymphocytes Absolute Auto 1800 /uL (1100-4500); Lymphocytes Percent Auto 20.3 % (25-40); Mean Corpuscular HGB Conc 32.7 % (30-36); Mean Corpuscular Hemoglobin 26.4 PG (26-34); Mean Corpuscular Volume 80.6 fL (80-100); Monocytes Absolute Auto 800 /uL (0-900); Monocytes Percent Auto 9.6 % (3-14); Neutrophils Absolute Auto 5800 /uL (1500-7000); Neutrophils Percent Auto 65.1 % (50-75); Platelet Count 241 X10^3/uL (150-400); Red Blood Cell Count 4.96 X10^6/uL (4.0-5.2); Red Cell Distribution Width 13.4 % (11.6-14.8); White Blood Cell Count 8.9 X10^3/uL (4.5-11.0)
[2020-05-03 10:38] LABS: INR 1.2 (0.9-1.3); Prothrombin Time 13.3 SECONDS (10.1-12.7)
[2020-05-03 10:40] LABS: PTT Partial Thromboplastin Tim 34 SECONDS (26.4-36.2)
[2020-05-03 10:42] LABS: Alanine Aminotransferase 22 IU/L (<35); Albumin 3.8 g/dL (3.5-5.0); Albumin Globulin Ratio 1.5 (1.0-2.8); Alkaline Phosphatase 90 U/L (38-126); Aspartate Aminotransferase 27 IU/L (14-36); BUN Creatinine Ratio 23.8 (6-22); Bilirubin Total 0.1 mg/dL (0.2-1.3); Blood Urea Nitrogen 10 mg/dL (7-17); Calcium 8.7 mg/dL (8.4-10.2); Carbon Dioxide 30 mmol/L (22-32); Chloride 100 mmol/L (98-107); Creatine Kinase 39 U/L (30-135); Estimated Glomerular Filt Rate > 60.0 mL/min (>60); Globulin 2.6 g/dL (1.7-4.1); Glucose 165 mg/dL (80-110); HEMOLYSIS < 15 (0-50); Lipase 68 U/L (23-300); Potassium 4.1 mmol/L (3.4-5.1); Sodium 133 mmol/L (137-145); Total Protein 6.4 g/dL (6.3-8.2)
[2020-05-03 10:53] LABS: Troponin I < 0.012 ng/mL (0.01-0.034)
[2020-05-03] MEDS: MAG HYDROX/ALUMINUM/SIMETH SUS 20 ML, LIDOCAINE VISCOUS 2% 15 ML PO (11:11)
[2020-05-03] MEDS: PANTOPRAZOLE 40 MG VIAL IV (11:12)
[2020-05-03 12:22] LABS: D Dimer < 200 ng/mL (<230)
[2020-05-03 12:49] LABS: Troponin I < 0.012 ng/mL (0.01-0.034)
[2020-05-03] MEDS: NITROGLYCERIN 0.4 MG SL TAB SL (12:55)
--- NOTE | 2020-05-03 13:15 | PC.NURSE ---
pt reports that she feels worse after her nitroglycerin. the pain was not resolved. Dr. Harris aware.
[2020-05-03 13:25] LABS: COVID19 -Nasal RAPID Negative (Negative)
== END 2020-05-03 15:17 | disposition short-term general hospital (02) ==
PROVIDERS: Emergency Provider Emergency Medicine; PCP Internal Medicine
DX: R07.9 Chest pain, unspecified (principal); R00.2 Palpitations; I10 Essential (primary) hypertension; E11.9 Type 2 diabetes mellitus without complications; I48.91 Unspecified atrial fibrillation; Z20.822 Contact with and (suspected) exposure to COVID-19; I49.5 Sick sinus syndrome
CPT/HCPCS: 36415; 71045; 80053; 82550; 83690; 84484; 85025; 85379; 85610; 85730; 87635; 93005; 96374; 99284; 99291; C9113